=== PATIENT | male | born 1935 ===

== ENCOUNTER 2016-12-24 23:19 | Inpatient (IN) | payer MEDICARE, OTHER ==
[2016-12-25 00:38] LABS: BASO # 0.1 K/uL (0.0-0.2); BASO % 0.6 % (0.0-2.0); EOS # 0.1 K/uL (0.0-0.7); EOS % 0.5 % (0.0-4.0); HEMATOCRIT 35.9 % (35.0-51.0); LYMPH # 1.6 K/uL (1.0-4.3); LYMPH % 11.3 % (20.0-40.0); MEAN CELL VOLUME 90.2 fl (80.0-94.0); MEAN CORPUSCULAR HGB CONC 33.3 g/dL (33.0-37.0); MEAN PLATELET VOLUME 10.3 fl (7.2-11.7); MONO # 1.5 K/uL (0.0-0.8); MONO % 10.3 % (0.0-10.0); NEUT % 77.3 % (50.0-75.0); RED CELL DISTRIBUTION WIDTH 13.2 % (11.5-14.5); WHITE BLOOD COUNT 14.3 K/uL (4.8-10.8)
[2016-12-25 00:41] LABS: BLOOD UREA NITROGEN 36 mg/dl (9-20); CALCIUM 8.8 mg/dL (8.4-10.2); CARBON DIOXIDE 28 mmol/L (22-30); CHLORIDE 94 mmol/L (98-107); GFR AFRICAN-AMERICAN > 60; POTASSIUM 4.4 MMOL/L (3.6-5.0); SODIUM 131 mmol/l (132-148)
[2016-12-25 00:43] LABS: GLUCOSE,RANDOM 38 mg/dL (75-110)
[2016-12-25] MEDS ORDERED: Piperacillin/Tazobact 3.375 GM in Sodium Chloride 0.9% 100 ML IVPB STA (00:48)
--- NOTE | 2016-12-25 00:50 | CP.PCM.CON ---
History of Present Illness - History of Present Illness History of Present Illness: 81 year old male with PMHx including HTN, DM presents to ED with complaint of right leg redness. Patient states that earlier today he saw in primary doctor who sent him to the ED. He said that he has this redness to his right leg for 1 week and it has been getting worse. He admits to some pain to the right leg. He denies taking any antibiotics currently. He states that he is a patient of Dr. Brito and saw him two weeks ago. He states that he takes his blood sugar twice a day and it is usually in the 140-200 range. He admits to diarrhea and headache but denies n/v/f/c/sob/cp. Past Patient History - Past Medical History & Family History Past Medical History?: Yes - Past Social History Smoking Status: Unknown If Ever Smoked - CARDIAC Hx Hypertension: Yes - PULMONARY Hx Respiratory Disorders: No - NEUROLOGICAL Hx Neurological Disorder: No - HEENT Hx HEENT Problems: No - RENAL Hx Chronic Kidney Disease: No - ENDOCRINE/METABOLIC Hx Diabetes Mellitus Type 2: Yes - HEMATOLOGICAL/ONCOLOGICAL Hx Blood Disorders: No - INTEGUMENTARY Hx Dermatological Problems: Yes Hx Cellulitis: Yes - MUSCULOSKELETAL/RHEUMATOLOGICAL Hx Musculoskeletal Disorders: Yes Hx Falls: Yes - GASTROINTESTINAL Hx Gastrointestinal Disorders: No - GENITOURINARY/GYNECOLOGICAL Hx Genitourinary Disorders: No - PSYCHIATRIC Hx Psychophysiologic Disorder: No Hx Substance Use: No - SURGICAL HISTORY Hx Surgeries: Yes Hx Coronary Artery Bypass Graft: Yes Other/Comment: Left BTK ampuation in 2001. Popliteal bypass graft - ANESTHESIA Hx Anesthesia: Yes Hx Anesthesia Reactions: No Meds Allergies/Adverse Reactions: Allergies Allergy/AdvReac Type Severity Reaction Status Date / Time shrimp Allergy RASH Verified 06/20/16 19:29 Seafood Allergy SWELLING Uncoded 01/12/16 13:24 - Medications Medications: Current Medications Vancomycin HCl 1 gm/ Sodium (Chloride) 250 mls @ 166.667 mls/hr IVPB Q12 HILDA Piperacillin Sod/Tazobactam (Sod 3.375 gm/ Sodium Chloride) 100 mls @ 100 mls/ hr IVPB STAT STA Stop: 12/25/16 01:47 Physical Exam - Constitutional Appears: Well, Non-toxic, No Acute Distress - Extremities Exam Additional comments: Lower extremity focused exam: Left:BKA Right: Vasc: DP and PT pulses palpable 1/4. CFT < 4 seconds for digits 1-4, CFT delayed to 5th digit. Skin temperature increased from proximal to distal. +1 pitting edema noted to the foot and leg. Neuro: Gross sensation diminished Derm:Superficial ulceration noted to the medial aspect of the hallux, base is granular, periwound is hyperkeratotic. No malodor, no drainage, no probe to bone noted. Ulceration noted to the lateral aspect of the 5th digit with hyperkeratotic periwound, measuring approximately 0.6 cm by 0.6 cm x 0.2 cm, sanginous drainage noted, no malodor, no purulence, no fluctuance, no probe to bone noted. 5th digit is blanched and dusky. Erythema and calor noted on the dorsum of the lateral aspect of the right leg as well as on the anterior love. Ortho: No pain on palpation to right 5th digit or hallux. Amputation noted to the distal aspect of the 3rd digit - Neurological Exam Neurological exam: Alert, Oriented x3 - Psychiatric Exam Psychiatric exam: Normal Affect, Normal Mood Results - Vital Signs Recent Vital Signs: Last Vital Signs Temp 99.5 F 12/24/16 23:22 Pulse 88 12/24/16 23:22 Resp 18 12/24/16 23:22 BP 112/63 12/24/16 23:22 Pulse Ox 97 12/24/16 23:22 - Labs Result Diagrams: 12/25/16 00:28 12/25/16 00:28 Labs: Laboratory Results - last 24 hr 12/25/16 12/25/16 00:28 00:28 WBC 14.3 H D RBC 3.98 L Hgb 11.9 L D Hct 35.9 MCV 90.2 MCH 30.0 MCHC 33.3 RDW 13.2 Plt Count 188 MPV 10.3 Neut % (Auto) 77.3 H Lymph % (Auto) 11.3 L Coal % (Auto) 10.3 H Eos % (Auto) 0.5 Baso % (Auto) 0.6 Neut # 11.0 H Lymph # 1.6 Coal # 1.5 H Eos # 0.1 Baso # 0.1 Sodium 131 L Potassium 4.4 Chloride 94 L Carbon Dioxide 28 Anion Gap 13 BUN 36 H Creatinine 1.3 Est GFR ( Amer) > 60 Est GFR (Non-Af Amer) 53 Random Glucose 38 L* D Calcium 8.8 Assessment & Plan - Assessment and Plan (Free Text) Assessment: 81 year old male with right leg cellulitis and right hallux and fifth digit ulcerations secondary to DM Plan: Patient examined and evaluated discussed with attending Dr. Brito Chart, vitals, labs reviewed;WBC 14.3 Wound culture obtained from right 5th digit Radiographs reviewed- no signs of acute fracture, no signs of soft tissue emphysema noted Hyperkeratotic tissue was sharply debrided with #15 blade down to fresh tissue Right foot wounds dressed with bacitrain, sterile gauze, DSD Abx per ED attending Podiatry will continue to follow patient while in house
[2016-12-25] MEDS ORDERED: Dextrose 50% SYRINGE Inj (50 ml) IVP ONE (00:51)
[2016-12-25] MEDS ORDERED: Vancomycin 1 g Inj ONE (00:56)
[2016-12-25] MEDS ORDERED: Piperacillin/Tazobact 3.375 gm Inj IVPB ONE (00:56)
--- NOTE | 2016-12-25 01:45 | ED PDOC ---
Lower Extremity Pain/Injury Time Seen by Provider: 12/24/16 23:38 Chief Complaint (Nursing): Lower Extremity Problem/Injury Chief Complaint (Provider): Redness of Right Leg History Per: Patient History/Exam Limitations: no limitations Onset/Duration Of Symptoms: Days (x4) Current Symptoms Are (Timing): Still Present Additional Complaint(s): 22:38 Ayaz Johnston is an 81 year old male with a history of diabetes that presents to the ED with a chief complaint of right leg redness and pain, in addition to redness and wounds on the right foot that he has been experiencing for the past four days. Patient states that he went to see his PMD Dr. Jennings about the redness on his right leg, who then referred him to the ED for further evaluation. He states that he has a mild headache, but denies any fever. PMD: Laureano Jennings Past Medical History Reviewed: Historical Data, Nursing Documentation, Vital Signs Vital Signs: Last Vital Signs Temp 99.5 F 12/24/16 23:22 Pulse 88 12/24/16 23:22 Resp 18 12/24/16 23:22 BP 112/63 12/24/16 23:22 Pulse Ox 97 12/24/16 23:22 - Medical History PMH: Atrial Fibrillation, CAD, Diabetes, HTN, Hypercholesterolemia Denies: HIV, Chronic Kidney Disease - Surgical History Surgical History: CABG, Pacemaker - Family History Family History: States: Unknown Family Hx - Home Medications Home Medications: Ambulatory Orders Medication Instructions Recorded Warfarin [Coumadin] 2 mg PO DAILY 11/21/15 Pravastatin Sodium [Pravachol] 20 mg PO DAILY #0 tab 11/30/15 Sitagliptin Phosphate [Januvia] 100 mg PO DAILY #0 tablet 11/30/15 amLODIPine [Norvasc] 10 mg PO DAILY #0 tab 11/30/15 Clopidogrel [Plavix] 75 mg PO DAILY 01/12/16 Insulin Lispro [Humalog] 6 unit SC ACBD 01/12/16 Valsartan/Hydrochlorothiazide 1 tab PO DAILY 01/12/16 [Diovan Hct 320-25 mg Tablet] metFORMIN [glucOPHAGE] 500 mg PO BID 01/12/16 Insulin Glargine,Hum.rec.anlog 16 unit SC DAILY #0 ml 01/13/16 [Lantus] Clopidogrel [Plavix] 75 mg PO DAILY 05/13/16 Ergocalciferol (Vitamin D2) 1 cap PO QWK 05/13/16 [Vitamin D2] Pravastatin Sodium [Pravachol] 20 mg PO HS 05/13/16 SITagliptin [Januvia] 100 mg PO DAILY 05/13/16 Valsartan/Hydrochlorothiazide 1 tab PO DAILY 05/13/16 [Valsartan-Hctz 320-25 mg Tab] amLODIPine [Norvasc] 10 mg PO DAILY 05/13/16 metFORMIN [glucOPHAGE] 500 mg PO BID 05/13/16 predniSONE [predniSONE Tab] 20 mg PO DAILY #12 tab 06/20/16 - Allergies Allergies/Adverse Reactions: Allergies Allergy/AdvReac Type Severity Reaction Status Date / Time shrimp Allergy RASH Verified 06/20/16 19:29 Seafood Allergy SWELLING Uncoded 01/12/16 13:24 Review of Systems Constitutional: Negative for: Fever Musculoskeletal: Positive for: Leg Pain (right leg redness and pain), Foot Pain (right foot redness and wounds) Neurological: Positive for: Headache (mild) Physical Exam - Reviewed Nursing Documentation Reviewed: Yes Vital Signs Reviewed: Yes - Physical Exam Appears: Positive for: Non-toxic, No Acute Distress Head Exam: Positive for: ATRAUMATIC, NORMOCEPHALIC Skin: Positive for: Warm, Dry Cardiovascular/Chest: Positive for: Regular Rate, Rhythm. Negative for: Murmur Respiratory: Positive for: Normal Breath Sounds. 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 Right leg has redness on the anterior aspect, as well as rednesson the dorsum of the right foot. There are also two diabetic ulcer wounds on the right foot: one on the right great toe and the other o the right little toe. These wounds appear open. ). Negative for: Pedal Edema, Calf Tenderness Neurologic/Psych: Positive for: Alert, Oriented - Laboratory Results Result Diagrams: 12/25/16 00:28 12/25/16 00:28 - ECG O2 Sat by Pulse Oximetry: 97 (RA) Pulse Ox Interpretation: Normal Medical Decision Making Medical Decision Makin:08 Initial Impression: Cellulitis of the Right Leg/Diabetic Ulcers of Right Foot, r /o osteomyelitis Initial Plan: * CBC * ESR * Tylenol 650 mg PO * Dextrose * Vancomycin * Piperacillin/Tazobact * Blood culture * Wound culture * Podiatry consult * Reevaluation 1:24 Patient was seen by podiatry resident and discussed with Dr. Brito. Discussed with patient and Dr. Palencia, who agreed to admit the patient under his care. Scribe Attestation: Documented by Mahsa De Luna, acting as a scribe for Danita Medeiros MD. Provider Scribe Attestation: All medical record entries made by the Scribe were at my direction and personally dictated by me. I have reviewed the chart and agree that the record accurately reflects my personal performance of the history, physical exam, medical decision making, and the department course for this patient. I have also personally directed, reviewed, and agree with the discharge instructions and disposition. Disposition - Clinical Impression Clinical Impression: Cellulitis, Diabetic ulcer of right foot - Patient ED Disposition Is Patient to be Admitted: Yes Discussed With Dr.: Jos Palencia Doctor Will See Patient In The: Hospital Counseled Patient/Family Regarding: Studies Performed, Diagnosis - Disposition Disposition Time: 01:24 Condition: FAIR - POA Present On Arrival: Poor Glycemic Control, Pressure Ulcer
[2016-12-25] MEDS: Insulin Lispro (humaLOG) 100 Units/ml Inj SC SCH ×4 (07:06→22:00)
[2016-12-25] MEDS ORDERED: INSULIN GLARGINE HUM REC ANLOG 18 UNIT SC SCH (09:00)
[2016-12-25] MEDS ORDERED: Enoxaparin 30 mg Syringe SC SCH (09:00)
[2016-12-25] MEDS ORDERED: Patient's Own Med (Valsartan/Hydrochlorothiazide [Valsartan-Hctz 320-25 Mg Tab] 1 TAB) PO SCH (09:00)
[2016-12-25] MEDS ORDERED: Silver Sulfadiazine 1% Cream (20 gm) TOP SCH (09:00)
[2016-12-25] MEDS: Insulin Detemir 100 Units/ml Inj SC SCH (09:22)
[2016-12-25] MEDS: Enoxaparin 40 mg Syringe SC SCH (09:24)
[2016-12-25] MEDS: Piperacillin/Tazobact 3.375 GM in Sodium Chloride 0.9% 100 ML IVPB SCH ×2 (09:30→17:14)
[2016-12-25 10:25] LABS: HEMATOCRIT 36.5 % (35.0-51.0); MEAN CELL VOLUME 90.8 fl (80.0-94.0); MEAN CORPUSCULAR HEMOGLOBIN 30.5 pg (27.0-31.0); MEAN CORPUSCULAR HGB CONC 33.6 g/dL (33.0-37.0); RED CELL DISTRIBUTION WIDTH 13.2 % (11.5-14.5); WHITE BLOOD COUNT 11.1 K/uL (4.8-10.8)
[2016-12-25 10:35] LABS: ALKALINE PHOSPHATASE 110 U/L (38-126); ALT/SGPT 34 U/L (21-72); AST/SGOT 32 U/L (17-59); BILIRUBIN,TOTAL 1.9 mg/dl (0.2-1.3); BLOOD UREA NITROGEN 31 mg/dl (9-20); CALCIUM 8.8 mg/dL (8.4-10.2); CARBON DIOXIDE 29 mmol/L (22-30); CHLORIDE 95 mmol/L (98-107); GFR AFRICAN-AMERICAN > 60; GLUCOSE,RANDOM 170 mg/dL (75-110); POTASSIUM 4.5 MMOL/L (3.6-5.0); SODIUM 134 mmol/l (132-148); TOTAL PROTEIN 6.9 G/DL (6.3-8.2)
--- NOTE | 2016-12-25 12:34 | CP.PCM.HP ---
History of Present Illness - History of Present Illness History of Present Illness: This is an 81 y/o male with PVD, left BKA and right lower leg stent , DM 2 admitted last night for cellulitis of the left leg and necrosis and possible osteomyelitis of the left 5th digit. WBC was 14.3 Patient claims that sx of redness and tenderness of the right leg started 5 days ago. He eventually saw his PMD Dr Dioni Jennings and advised IV antibiotics. Present on Admission - Present on Admission Any Indicators Present on Admission: No History of DVT/PE: No History of Uncontrolled Diabetes: Yes Urinary Catheter: No Decubitus Ulcer Present: No Past Patient History - Past Medical History & Family History Past Medical History?: Yes - Past Social History Smoking Status: Former Smoker - CARDIAC Hx Hypertension: Yes - PULMONARY Hx Respiratory Disorders: No - NEUROLOGICAL Hx Neurological Disorder: No - HEENT Hx HEENT Problems: No - RENAL Hx Chronic Kidney Disease: No - ENDOCRINE/METABOLIC Hx Diabetes Mellitus Type 2: Yes - HEMATOLOGICAL/ONCOLOGICAL Hx Blood Disorders: No - INTEGUMENTARY Hx Dermatological Problems: Yes Hx Cellulitis: Yes - MUSCULOSKELETAL/RHEUMATOLOGICAL Hx Musculoskeletal Disorders: Yes Hx Falls: Yes - GASTROINTESTINAL Hx Gastrointestinal Disorders: No - GENITOURINARY/GYNECOLOGICAL Hx Genitourinary Disorders: No - PSYCHIATRIC Hx Psychophysiologic Disorder: No Hx Substance Use: No - SURGICAL HISTORY Hx Surgeries: Yes Hx Coronary Artery Bypass Graft: Yes Other/Comment: Left BKA in 2001. Popliteal bypass graft - ANESTHESIA Hx Anesthesia: Yes Hx Anesthesia Reactions: No Hx Malignant Hyperthermia: No Has any member of the family had a problem w/ anesthesia?: No Meds Allergies/Adverse Reactions: Allergies Allergy/AdvReac Type Severity Reaction Status Date / Time shrimp Allergy RASH Verified 06/20/16 19:29 Seafood Allergy SWELLING Uncoded 01/12/16 13:24 Physical Exam - Head Exam Head Exam: NORMAL INSPECTION - Eye Exam Eye Exam: Normal appearance - Respiratory Exam Respiratory Exam: Clear to Auscultation Bilateral - Cardiovascular Exam Cardiovascular Exam: REGULAR RHYTHM - GI/Abdominal Exam GI & Abdominal Exam: Normal Bowel Sounds - Extremities Exam Extremities exam: Positive for: tenderness Additional comments: redness on the right leg up to mid leg tender on palpation - Neurological Exam Neurological exam: Oriented x3 - Psychiatric Exam Psychiatric exam: Normal Mood Results - Vital Signs Recent Vital Signs: Last Vital Signs Temp 98.6 F 12/25/16 07:56 Pulse 77 12/25/16 09:24 Resp 20 12/25/16 07:56 BP 124/66 12/25/16 09:24 Pulse Ox 95 12/25/16 07:56 - Labs Result Diagrams: 12/25/16 10:00 12/25/16 10:00 Labs: Laboratory Results - last 24 hr 12/25/16 12/25/16 12/25/16 05:49 10:00 10:00 WBC 11.1 H RBC 4.02 L Hgb 12.3 Hct 36.5 MCV 90.8 MCH 30.5 MCHC 33.6 RDW 13.2 Plt Count 163 ESR 58 H Sodium 134 Potassium 4.5 Chloride 95 L Carbon Dioxide 29 Anion Gap 15 BUN 31 H Creatinine 1.1 Est GFR ( Amer) > 60 Est GFR (Non-Af Amer) > 60 POC Glucose (mg/dL) 89 Random Glucose 170 H Calcium 8.8 Total Bilirubin 1.9 H AST 32 ALT 34 Alkaline Phosphatase 110 Total Protein 6.9 Albumin 3.5 Globulin 3.4 Albumin/Globulin Ratio 1.0 Assessment & Plan (1) Diabetic ulcer of right foot Status: Acute (2) Atrial fibrillation Status: Acute (3) Cellulitis of right leg Status: Acute (4) Diabetes mellitus type 2, uncontrolled Status: Acute (5) HTN (hypertension) Status: Acute (6) PAD (peripheral artery disease) Status: Acute - Assessment and Plan (Free Text) Plan: Cont meds Cont tx IV antibiotics Podiatyr eval cardiology Infectious disease follow up MRI
--- NOTE | 2016-12-25 14:22 | US ---
PROCEDURE: Duplex ultrasound of the left lower extremity arteries. HISTORY: right 5th digit ulcer COMPARISON: None available. TECHNIQUE: Grayscale and duplex Doppler evaluation of the right common femoral, superficial femoral, popliteal, posterior tibial and dorsalis pedis arteries was performed.. FINDINGS: COMMON FEMORAL ARTERY: Patent. Maximal flow velocity of 132 cm/s. SUPERFICIAL FEMORAL ARTERY:Proximal has normal flow with minor plaque Maximal flow velocity of 132 cm/s. Distal left SFA has biphasic flow with increased velocity of 162 centimeters/second and waveform is biphasic suggesting atherosclerotic stenosis. POPLITEAL ARTERY:Moderate atherosclerotic plaque. Maximal flow velocity of 103 cm/s. Waveform is biphasic. POSTERIOR TIBIAL ARTERY: Atherosclerotic plaque, patent Maximal flow velocity of 62 cm/s. Biphasic flow. DORSALIS PEDIS ARTERY: Monophasic flow. Atherosclerotic calcification. Maximal flow velocity of 35 cm/s. This suggest moderate distal disease. OTHER FINDINGS: None. IMPRESSION: Atherosclerotic changes with distal monophasic flow in the dorsalis pedis artery. Elevated velocity in the distal right SFA suggesting additional atherosclerotic narrowing. Moderate plaque in the right popliteal artery.
[2016-12-25] MEDS: Silver Sulfadiazine 1% Cream (20 gm) TOP SCH (17:00)
--- NOTE | 2016-12-25 17:01 | CP.PCM.CON ---
History of Present Illness - History of Present Illness History of Present Illness: I was asked to see patient by Dr. Manjarrez and Dr. Palencia. Patient is a 81 year old male with history of DM, HTN, PAD s/p amputation of the LLE who presents with cellulitis of the right leg. The patient reports a similar episode about one year ago, and the patient complains of progression of cellulitis. He denies pain. There is necrosis of the 5th toe of the right foot. Review of Systems - Constitutional Constitutional: absent: As Per HPI, Anorexia, Chills, Daytime Sleepiness, Excessive Sweating, Fatigue, Fever, Frequent Falls, Headache, Increased Appetite , Lethargy, Malaise, Night Sweats, Snoring, Sleep Apnea, Weight Gain, Weight Loss, Weakness, Other - EENT Eyes: absent: As Per HPI, Blind Spots, Blurred Vision, Change in Vision, Decreased Night Vision, Diplopia, Discharge, Dry Eye, Exophthalmos, Floaters, Irritation, Itchy Eyes, Loss of Peripheral Vision, Pain, Photophobia, Requires Corrective Lenses, Sees Flashes, Spots in Vision, Tunnel Vision, Other Visual Disturbances, Loss of Vision, Other Ears: absent: As Per HPI, Decreased Hearing, Ear Discharge, Ear Pain, Tinnitus, Abnormal Hearing, Disequilibrium, Dizziness, Other Nose/Mouth/Throat: absent: As Per HPI, Epistaxis, Nasal Congestion, Nasal Discharge, Nasal Obstruction, Nasal Trauma, Nose Pain, Post Nasal Drip, Sinus Pain, Sinus Pressure, Bleeding Gums, Change in Voice, Dental Pain, Dry Mouth, Dysphagia, Halitosis, Hoarsness, Lip Swelling, Mouth Lesions, Mouth Pain, Odynophagia, Sore Throat, Throat Swelling, Tongue Swelling, Facial Pain, Neck Pain, Neck Mass, Other - Cardiovascular Cardiovascular: Leg Edema - Respiratory Respiratory: absent: As Per HPI, Cough, Dyspnea, Hemoptysis, Dyspnea on Exertion , Wheezing, Snoring, Stridor, Pain on Inspiration, Chest Congestion, Excessive Mucous Production, Change in Mucous Color, Pain with Coughing, Other - Gastrointestinal Gastrointestinal: absent: As Per HPI, Abdominal Pain, Belching, Bloating, Change in Bowel Habits, Change in Stool Character, Coffee Ground Emesis, Constipation, Cramping, Diarrhea, Dyspepsia, Dysphagia, Early Satiety, Excessive Flatus, Fecal Incontinence, Heartburn, Hematemesis, Hematochezia, Loose Stools, Melena, Nausea, Odynophagia, Temesmus, Vomiting, Other - Genitourinary Genitourinary: absent: As Per HPI, Change in Urinary Stream, Difficulty Urinating, Dysuria, Flank Pain, Hematuria, Pyuria, Nocturia, Urinary Incontinence, Urinary Frequency, Urinary Hesitance, Urinary Urgency, Voiding Freq/Small Amts, Freq UTI, Hx Renal/Bladder Calculi, Hx /Renal Surgery, Bladder Distension, Other - Musculoskeletal Musculoskeletal: absent: As Per HPI, Abnormal Gait, Arthralgias, Atrophy, Back Pain, Deformity, Joint Swelling, Limited Range of Motion, Loss of Height, Muscle Cramps, Muscle Weakness, Myalgias, Neck Pain, Numbness, Radiating Pain into Limb, Stiffness, Tingling, Other - Integumentary Integumentary: Skin Ulcer - Neurological Neurological: absent: As Per HPI, Abnormal Gait, Abnormal Hearing, Abnormal Movements, Abnormal Speech, Behavioral Changes, Burning Sensations, Confusion, Convulsions, Disequilibrium, Dizziness, Numbness, Focal Weakness, Frequent Falls , Headaches, Lack of Coordination, Loss of Vision, Memory Loss, Paresthesias, Radicular Pain, Restless Legs, Sensory Deficit, Syncope, Tingling, Tremor, Vertigo, Weakness, Other Visual Disturbances, Other - Psychiatric Psychiatric: absent: As Per HPI, Abnormal Sleep Pattern, Anhedonia, Anxiety, Auditory Hallucinations, Behavioral Changes, Change in Appetite, Change in Libido, Confusion, Depression, Difficulty Concentrating, Hallucinations, Homicidal Ideation, Hopelessness, Irritability, Memory Loss, Mood Swings, Panic Attacks, Paranoia, Suicidal Ideation, Visual Hallucinations, Tactile Hallucinations, Other - Endocrine Endocrine: absent: As Per HPI, Change in Body Appearance, Change in Libido, Cold Intolorance, Deepening of Voice, Excessive Sweating, Fatigue, Flushing, Heat Intolorance, Increase in Ring/Shoe/Hat Size, Palpitations, Polydipsia, Polyphagia, Polyuria, Other - Hematologic/Lymphatic Hematologic: absent: As Per HPI, Easy Bleeding, Easy Bruising, Lymphadenopathy, Other Past Patient History - Past Medical History & Family History Past Medical History?: Yes - Past Social History Smoking Status: Former Smoker - CARDIAC Hx Hypertension: Yes - PULMONARY Hx Respiratory Disorders: No - NEUROLOGICAL Hx Neurological Disorder: No - HEENT Hx HEENT Problems: No - RENAL Hx Chronic Kidney Disease: No - ENDOCRINE/METABOLIC Hx Diabetes Mellitus Type 2: Yes - HEMATOLOGICAL/ONCOLOGICAL Hx Blood Disorders: No - INTEGUMENTARY Hx Dermatological Problems: Yes Hx Cellulitis: Yes - MUSCULOSKELETAL/RHEUMATOLOGICAL Hx Musculoskeletal Disorders: Yes Hx Falls: Yes - GASTROINTESTINAL Hx Gastrointestinal Disorders: No - GENITOURINARY/GYNECOLOGICAL Hx Genitourinary Disorders: No - PSYCHIATRIC Hx Psychophysiologic Disorder: No Hx Substance Use: No - SURGICAL HISTORY Hx Surgeries: Yes Hx Coronary Artery Bypass Graft: Yes Other/Comment: Left BKA in 2001. Popliteal bypass graft - ANESTHESIA Hx Anesthesia: Yes Hx Anesthesia Reactions: No Hx Malignant Hyperthermia: No Has any member of the family had a problem w/ anesthesia?: No Meds Allergies/Adverse Reactions: Allergies Allergy/AdvReac Type Severity Reaction Status Date / Time shrimp Allergy RASH Verified 06/20/16 19:29 Seafood Allergy SWELLING Uncoded 01/12/16 13:24 - Medications Medications: Current Medications Acetaminophen (Tylenol 325mg Tab) 650 mg PO Q4 PRN PRN Reason: Fever >100.4 F Amlodipine Besylate (Norvasc) 10 mg PO DAILY [facility] Last Admin: 12/25/16 09:24 Dose: 10 mg Clopidogrel Bisulfate (Plavix) 75 mg PO DAILY [facility] Last Admin: 12/25/16 09:24 Dose: 75 mg Enoxaparin Sodium (Lovenox) 40 mg SC DAILY [facility] PRN Reason: Protocol Last Admin: 12/25/16 09:24 Dose: 40 mg Hydrochlorothiazide (Hydrodiuril) 25 mg PO DAILY [facility] Last Admin: 12/25/16 09:22 Dose: 25 mg Vancomycin HCl 1 gm/ Sodium (Chloride) 250 mls @ 166.667 mls/hr IVPB ONCE ONE Stop: 12/26/16 02:29 Piperacillin Sod/Tazobactam (Sod 3.375 gm/ Sodium Chloride) 100 mls @ 100 mls/ hr IVPB Q8 [facility] Last Admin: 12/25/16 09:30 Dose: 100 mls/hr Vancomycin HCl 500 mg/ Sodium (Chloride) 100 mls @ 100 mls/hr IVPB DAILY@0100 [facility] Insulin Detemir (Levemir) 18 units SC DAILY [facility] Last Admin: 12/25/16 09:22 Dose: 18 unit Insulin Human Lispro (Humalog) 0 units SC ACHS [facility] PRN Reason: Protocol Last Admin: 12/25/16 12:49 Dose: Not Given Metformin HCl (Glucophage) 500 mg PO BID [facility] Last Admin: 12/25/16 09:22 Dose: 500 mg Pravastatin Sodium (Pravachol) 20 mg PO [facility] Silver Sulfadiazine (Silvadene 1% 20 Gm) 20 ea TOP DAILY@1700 [facility] Sitagliptin Phosphate (Januvia) 100 mg PO DAILY [facility] Last Admin: 12/25/16 09:22 Dose: 100 mg Valsartan (Diovan) 320 mg PO DAILY [facility] Last Admin: 12/25/16 09:21 Dose: 320 mg Physical Exam - Constitutional Appears: Non-toxic - Head Exam Head Exam: NORMAL INSPECTION - Eye Exam Eye Exam: Normal appearance - ENT Exam ENT Exam: Mucous Membranes Moist - Neck Exam Neck exam: Positive for: Full Rom - Respiratory Exam Respiratory Exam: Decreased Breath Sounds - Cardiovascular Exam Cardiovascular Exam: REGULAR RHYTHM - GI/Abdominal Exam GI & Abdominal Exam: Normal Bowel Sounds - Rectal Exam Rectal Exam: Deferred - Extremities Exam Extremities exam: Positive for: pedal edema Additional comments: cellulitis noted of the skin of the right lower extremity. necrotic 5th toe of the right foot. - Back Exam Back exam: NORMAL INSPECTION - Neurological Exam Neurological exam: Oriented x3 - Psychiatric Exam Psychiatric exam: Normal Affect - Skin Skin Exam: Normal Color Results - Vital Signs Recent Vital Signs: Last Vital Signs Temp 98.6 F 12/25/16 07:56 Pulse 77 12/25/16 09:24 Resp 20 12/25/16 07:56 BP 124/66 12/25/16 09:24 Pulse Ox 95 12/25/16 07:56 - Labs Result Diagrams: 12/25/16 10:00 12/25/16 10:00 Labs: Laboratory Results - last 24 hr 12/25/16 12/25/16 12/25/16 05:49 10:00 10:00 WBC 11.1 H RBC 4.02 L Hgb 12.3 Hct 36.5 MCV 90.8 MCH 30.5 MCHC 33.6 RDW 13.2 Plt Count 163 ESR 58 H Sodium 134 Potassium 4.5 Chloride 95 L Carbon Dioxide 29 Anion Gap 15 BUN 31 H Creatinine 1.1 Est GFR ( Amer) > 60 Est GFR (Non-Af Amer) > 60 POC Glucose (mg/dL) 89 Random Glucose 170 H Calcium 8.8 Total Bilirubin 1.9 H AST 32 ALT 34 Alkaline Phosphatase 110 Total Protein 6.9 Albumin 3.5 Globulin 3.4 Albumin/Globulin Ratio 1.0 12/25/16 12:34 WBC RBC Hgb Hct MCV MCH MCHC RDW Plt Count ESR Sodium Potassium Chloride Carbon Dioxide Anion Gap BUN Creatinine Est GFR ( Amer) Est GFR (Non-Af Amer) POC Glucose (mg/dL) 148 H Random Glucose Calcium Total Bilirubin AST ALT Alkaline Phosphatase Total Protein Albumin Globulin Albumin/Globulin Ratio - EKG Data EKG Interpreted by: Myself EKG shows normal: Sinus rhythm Assessment & Plan (1) Diabetic ulcer of right foot Assessment and Plan: will need antibiotic therapy Status: Acute (2) Cellulitis Assessment and Plan: cotinue antibiotics as per ID Status: Acute (3) HTN (hypertension) Assessment and Plan: blood pressure control Status: Acute (4) PAD (peripheral artery disease) Assessment and Plan: bipahsic flow suggestrive of moderate disase. recommend CT angiogram. Status: Acute
[2016-12-25] MEDS ORDERED: Dextrose 50% SYRINGE Inj (50 ml) IV PRN (21:15)
[2016-12-25] MEDS: Pravastatin Sodium 20 MG TAB PO SCH (22:00)
[2016-12-26] MEDS: Piperacillin/Tazobact 3.375 GM in Sodium Chloride 0.9% 100 ML IVPB SCH ×3 (01:00→16:40)
[2016-12-26 04:49] LABS: PARTIAL THROMBOPLASTIN TIME 38.3 SECONDS (23.3-32.5)
[2016-12-26] MEDS: Insulin Lispro (humaLOG) 100 Units/ml Inj SC SCH ×4 (06:32→22:18)
[2016-12-26] MEDS: Enoxaparin 40 mg Syringe SC SCH (08:15)
[2016-12-26] MEDS ORDERED: Iodixanol 320 MG/ML 100 ML BOTTLE IV ONE (09:15)
[2016-12-26] MEDS ORDERED: Sodium Chloride 0.9% 50 ML IV ONE (09:16)
[2016-12-26] MEDS: Insulin Detemir 100 Units/ml Inj SC SCH (11:16)
--- NOTE | 2016-12-26 11:30 | CP.PCM.PN ---
Subjective - Date & Time of Evaluation Date of Evaluation: 12/26/16 Time of Evaluation: 10:30 - Subjective Subjective: 81 year old male was seen resting at bedside regarding right lower extremity cellulitis and right 5th and hallux ulcerations. Denies any acute events overnight. Denies any pain to his right lower extremity. Patient states that he already went for his angio this morning. He denies n/v/f/c/sob/cp. Objective - Vital Signs/Intake and Output Vital Signs (last 24 hours): Temp Pulse Resp BP Pulse Ox 99.2 F 97 H 20 138/88 99 12/26/16 00:14 12/26/16 00:14 12/26/16 00:14 12/26/16 00:14 12/26/16 00:14 - Medications Medications: Current Medications Acetaminophen (Tylenol 325mg Tab) 650 mg PO Q4 PRN PRN Reason: Fever >100.4 F Last Admin: 12/25/16 17:14 Dose: 650 mg Amlodipine Besylate (Norvasc) 10 mg PO DAILY [facility] Last Admin: 12/26/16 11:15 Dose: 10 mg Clopidogrel Bisulfate (Plavix) 75 mg PO DAILY [facility] Last Admin: 12/26/16 11:16 Dose: 75 mg Dextrose (Dextrose 50% Inj) 0 ml IV STAT PRN; Protocol PRN Reason: Hyglycemia Protocol Dextrose (Glutose 15) 0 gm PO ONCE PRN; Protocol PRN Reason: Hypoglycemia Protocol Enoxaparin Sodium (Lovenox) 40 mg SC DAILY [facility] PRN Reason: Protocol Last Admin: 12/26/16 08:15 Dose: Not Given Hydrochlorothiazide (Hydrodiuril) 25 mg PO DAILY [facility] Last Admin: 12/26/16 11:15 Dose: 25 mg Piperacillin Sod/Tazobactam (Sod 3.375 gm/ Sodium Chloride) 100 mls @ 100 mls/ hr IVPB Q8 [facility] Last Admin: 12/26/16 08:14 Dose: 100 mls/hr Vancomycin HCl 500 mg/ Sodium (Chloride) 100 mls @ 100 mls/hr IVPB DAILY@0100 [facility] Insulin Detemir (Levemir) 18 units SC DAILY [facility] Last Admin: 12/26/16 11:16 Dose: 18 unit Insulin Human Lispro (Humalog) 0 units SC ACHS [facility] PRN Reason: Protocol Last Admin: 12/26/16 11:20 Dose: Not Given Metformin HCl (Glucophage) 500 mg PO BID [facility] Last Admin: 12/26/16 08:15 Dose: Not Given Pravastatin Sodium (Pravachol) 20 mg PO HS [facility] Last Admin: 12/25/16 22:00 Dose: 20 mg Silver Sulfadiazine (Silvadene 1% 20 Gm) 20 ea TOP DAILY@1700 [facility] Last Admin: 12/25/16 17:00 Dose: 1 u Sitagliptin Phosphate (Januvia) 100 mg PO DAILY [facility] Last Admin: 12/26/16 11:15 Dose: 100 mg Valsartan (Diovan) 320 mg PO DAILY [facility] Last Admin: 12/26/16 11:15 Dose: 320 mg - Labs Labs: 12/25/16 10:00 12/25/16 10:00 PT 11.2 SECONDS (9.6-11.2) 12/26/16 04:26 INR 1.08 (0.92-1.08) 12/26/16 04:26 APTT 38.3 SECONDS (23.3-32.5) H 12/26/16 04:26 - Constitutional Appears: Non-toxic, No Acute Distress - Extremities Exam Additional comments: Lower extremity focused exam: Left:BKA Right: Vasc: DP and PT pulses non-palpable. CFT < 4 seconds for digits 1-4, CFT delayed to 5th digit. Skin temperature increased from proximal to distal. +1 pitting edema noted to the foot and leg. Neuro: Gross sensation diminished Derm:Superficial ulceration noted to the medial aspect of the hallux measuring approximately 0.5 cm x 0.5 cm x 0.2 cm, base is granular,. No malodor, no drainage, no probe to bone noted. Ulceration noted to the lateral aspect of the 5th digit with granular base, measuring approximately 1 cm by 1 cm x 0.2 cm , sanginous drainage noted, no malodor, no purulence, no fluctuance, no probe to bone noted. 5th digit is blanched and dusky. Erythema and calor noted on the dorsum of the lateral aspect of the right leg as well as on the anterior love- slowly resolving. Ortho: No pain on palpation to right 5th digit or hallux. Amputation noted to the distal aspect of the 3rd digit - Neurological Exam Neurological Exam: Alert, Awake, Oriented x3 - Psychiatric Exam Psychiatric exam: Normal Affect, Normal Mood Assessment and Plan - Assessment and Plan (Free Text) Assessment: 81 year old male with right leg cellulitis and right hallux and fifth digit ulcerations secondary to DM Plan: Patient examined and evaluated discussed with attending Dr. Brito Chart, vitals, labs reviewed;WBC 11.1 Wound culture pending Radiograph IMPRESSION: Small area of lucency and erosive change in the distal phalanx of the right 5th toe. Possible small overlying soft tissue ulcer. Osteomyelitis in this region is not excluded. No appreciable fracture. Right foot wounds dressed with silvadene, sterile gauze, DSD-to be dressed twice daily, nursing communication written Discussed the possibility of surgical intervention ID-Dr. Kruse consulted Continue IV abx per ID Vascular-Dr. Smith consulted arterile duplex studies obtained CT angio-offical read pending Podiatry will continue to follow patient while in house
--- NOTE | 2016-12-26 13:06 | CP.PCM.PN ---
Subjective - Date & Time of Evaluation Date of Evaluation: 12/26/16 Time of Evaluation: 13:05 - Subjective Subjective: patient has no current chest pain. less foot pain. Objective - Vital Signs/Intake and Output Vital Signs (last 24 hours): Temp Pulse Resp BP Pulse Ox 99.2 F 97 H 20 138/88 99 12/26/16 00:14 12/26/16 00:14 12/26/16 00:14 12/26/16 00:14 12/26/16 00:14 - Medications Medications: Current Medications Acetaminophen (Tylenol 325mg Tab) 650 mg PO Q4 PRN PRN Reason: Fever >100.4 F Last Admin: 12/25/16 17:14 Dose: 650 mg Amlodipine Besylate (Norvasc) 10 mg PO DAILY [facility] Last Admin: 12/26/16 11:15 Dose: 10 mg Clopidogrel Bisulfate (Plavix) 75 mg PO DAILY [facility] Last Admin: 12/26/16 11:16 Dose: 75 mg Dextrose (Dextrose 50% Inj) 0 ml IV STAT PRN; Protocol PRN Reason: Hyglycemia Protocol Dextrose (Glutose 15) 0 gm PO ONCE PRN; Protocol PRN Reason: Hypoglycemia Protocol Enoxaparin Sodium (Lovenox) 40 mg SC DAILY [facility] PRN Reason: Protocol Last Admin: 12/26/16 08:15 Dose: Not Given Hydrochlorothiazide (Hydrodiuril) 25 mg PO DAILY [facility] Last Admin: 12/26/16 11:15 Dose: 25 mg Piperacillin Sod/Tazobactam (Sod 3.375 gm/ Sodium Chloride) 100 mls @ 100 mls/ hr IVPB Q8 [facility] Last Admin: 12/26/16 08:14 Dose: 100 mls/hr Vancomycin HCl 500 mg/ Sodium (Chloride) 100 mls @ 100 mls/hr IVPB DAILY@0100 [facility] Insulin Detemir (Levemir) 18 units SC DAILY [facility] Last Admin: 12/26/16 11:16 Dose: 18 unit Insulin Human Lispro (Humalog) 0 units SC ACHS [facility] PRN Reason: Protocol Last Admin: 12/26/16 11:20 Dose: Not Given Metformin HCl (Glucophage) 500 mg PO BID [facility] Last Admin: 12/26/16 08:15 Dose: Not Given Pravastatin Sodium (Pravachol) 20 mg PO HS [facility] Last Admin: 12/25/16 22:00 Dose: 20 mg Silver Sulfadiazine (Silvadene 1% 20 Gm) 20 ea TOP DAILY@1700 [facility] Last Admin: 12/25/16 17:00 Dose: 1 u Sitagliptin Phosphate (Januvia) 100 mg PO DAILY [facility] Last Admin: 12/26/16 11:15 Dose: 100 mg Valsartan (Diovan) 320 mg PO DAILY [facility] Last Admin: 12/26/16 11:15 Dose: 320 mg - Labs Labs: 12/25/16 10:00 12/25/16 10:00 PT 11.2 SECONDS (9.6-11.2) 12/26/16 04:26 INR 1.08 (0.92-1.08) 12/26/16 04:26 APTT 38.3 SECONDS (23.3-32.5) H 12/26/16 04:26 - Constitutional Appears: Non-toxic - Head Exam Head Exam: NORMAL INSPECTION - Eye Exam Eye Exam: Normal appearance - ENT Exam ENT Exam: Mucous Membranes Moist - Neck Exam Neck Exam: Full ROM - Respiratory Exam Respiratory Exam: NORMAL BREATHING PATTERN - Cardiovascular Exam Cardiovascular Exam: REGULAR RHYTHM - GI/Abdominal Exam GI & Abdominal Exam: Normal Bowel Sounds - Rectal Exam Rectal Exam: Deferred - Extremities Exam Additional comments: erythema of the right lower extremity - Back Exam Back Exam: NORMAL INSPECTION - Neurological Exam Neurological Exam: Alert - Psychiatric Exam Psychiatric exam: Normal Affect - Skin Skin Exam: Normal Color Assessment and Plan (1) Diabetic ulcer of right foot Assessment & Plan: await CT angiogram report Status: Acute (2) Cellulitis Assessment & Plan: continue antibiotics Status: Acute (3) HTN (hypertension) Status: Acute (4) PAD (peripheral artery disease) Assessment & Plan: await CT angiogram report Status: Acute
--- NOTE | 2016-12-26 13:47 | CT ---
EXAM: CT Angiography Abdomen and Pelvis With Runoff to the Lower Extremities With Intravenous Contrast CLINICAL HISTORY: 81 years old, male; Condition or disease; Vascular insufficiency, intestinal; Prior surgery; Surgery date: 6+ months; Additional info: Gangrene/ cellulitis right lower extremity TECHNIQUE: Axial computed tomographic angiography images of the abdomen, pelvis and lower extremities with intravenous contrast using CT angiography protocol. This CT exam was performed using one or more of the following dose reduction techniques: automated exposure control, adjustment of the mA and/or kV according to patient size, and/or use of iterative reconstruction technique. MIP reconstructed images were created and reviewed. Coronal and sagittal reformatted images were created and reviewed. CONTRAST: 140 mL of VISIPAQUE 320 140ML administered intravenously. EXAM DATE/TIME: 12/26/2016 5:07 PM COMPARISON: No relevant prior studies available. FINDINGS: Lower thorax: Small hiatal hernia. VASCULATURE: Aorta: Moderate to marked atherosclerotic calcifications are aorta and branch vessels. No abdominal aortic aneurysm. No dissection. Celiac trunk and mesenteric arteries: Calcifications at origin of celiac artery, estimated 50% stenosis. Renal arteries: Beaded appearance of left renal artery, question fibromuscular dysplasia. No significant stenosis. Right iliac arteries: No acute findings. No occlusion or significant stenosis. Right femoral/popliteal arteries: Short segment of distal superficial femoral artery estimated less than 50% stenosis. Occluded femoral-popliteal bypass graft. Right calf/foot arteries: Extensive vascular calcifications tibial arteries limiting assessment. Segment of about 2 cm of proximal anterior and posterior tibial arteries with no demonstrable flow. Extensive superficial collaterals throughout the lower leg to foot. Small peroneal artery. Left iliac arteries: No acute findings. No occlusion or significant stenosis. Left femoral/popliteal arteries: Mural plaques distal half superficial femoral artery. Segmental stenosis in distal third, 1-2 cm segment estimated to be at least 50% stenosis. Thready popliteal artery, estimated 75% stenosis. Left calf/foot arteries: Below the knee amputation. Other arteries: Calcifications at the origin of superior mesenteric artery, estimated 50% stenosis. ABDOMEN: Liver: Unremarkable. No mass. Gallbladder and bile ducts: Unremarkable. No calcified stones. No ductal dilation. Pancreas: Unremarkable. No ductal dilation. No mass. Spleen: Unremarkable. No splenomegaly. Adrenals: Unremarkable. No mass. Kidneys and ureters: No hydronephrosis. No solid lesion. Stomach and bowel: Unremarkable. No obstruction. No mucosal thickening. Appendix: Normal. PELVIS: Bladder: Unremarkable. No mass. Reproductive: Unremarkable as visualized. ABDOMEN, PELVIS and LOWER EXTREMITIES: Intraperitoneal space: Unremarkable. No significant fluid collection. No free air. Bones/joints: No acute fracture. Soft tissues: Unremarkable. Lymph nodes: Unremarkable. No enlarged lymph nodes. IMPRESSION: 1. Occlusion of right femoral-popliteal bypass graft, no significant stenosis of superficial femoral artery. 2. Short segment of occlusion/subtotal occlusion occlusion of right proximal anterior and posterior tibial arteries. Extensive calcifications limits assessment of remaining vessels, appear threadlike. Essentially single-vessel runoff with extensive collateralization. 3. Estimated 75% stenosis left popliteal artery. Below knee amputation. 4. Remaining findings as above.
--- NOTE | 2016-12-26 14:15 | CP.PCM.CON ---
History of Present Illness - History of Present Illness History of Present Illness: 81 year old male with PMHx including HTN, DM presents to ED with complaint of right leg redness. . He said that he has this redness to his right leg for 1 week and it has been getting worse. He admits to some pain to the right leg. He denies taking any antibiotics currently. He states that he is a patient of Dr. Brito and saw him two weeks ago. He states that he takes his blood sugar twice a day and it is usually in the 140-200 range. He admits to diarrhea and headache but denies n/v/f/c/sob/cp He is found to have necrosis of fifth digit right foot as well aas ascending cellulitis to righjt leg and foot Review of Systems - Constitutional Constitutional: As Per HPI, Anorexia, Chills, Fatigue, Fever, Malaise - EENT Eyes: absent: As Per HPI, Blind Spots, Blurred Vision, Change in Vision, Decreased Night Vision, Diplopia, Discharge, Dry Eye, Exophthalmos, Floaters, Irritation, Itchy Eyes, Loss of Peripheral Vision, Pain, Photophobia, Requires Corrective Lenses, Sees Flashes, Spots in Vision, Tunnel Vision, Other Visual Disturbances, Loss of Vision, Other Ears: absent: As Per HPI, Decreased Hearing, Ear Discharge, Ear Pain, Tinnitus, Abnormal Hearing, Disequilibrium, Dizziness, Other Nose/Mouth/Throat: absent: As Per HPI, Epistaxis, Nasal Congestion, Nasal Discharge, Nasal Obstruction, Nasal Trauma, Nose Pain, Post Nasal Drip, Sinus Pain, Sinus Pressure, Bleeding Gums, Change in Voice, Dental Pain, Dry Mouth, Dysphagia, Halitosis, Hoarsness, Lip Swelling, Mouth Lesions, Mouth Pain, Odynophagia, Sore Throat, Throat Swelling, Tongue Swelling, Facial Pain, Neck Pain, Neck Mass, Other - Cardiovascular Cardiovascular: As Per HPI - Respiratory Respiratory: absent: As Per HPI, Cough, Dyspnea, Hemoptysis, Dyspnea on Exertion , Wheezing, Snoring, Stridor, Pain on Inspiration, Chest Congestion, Excessive Mucous Production, Change in Mucous Color, Pain with Coughing, Other - Gastrointestinal Gastrointestinal: absent: As Per HPI, Abdominal Pain, Belching, Bloating, Change in Bowel Habits, Change in Stool Character, Coffee Ground Emesis, Constipation, Cramping, Diarrhea, Dyspepsia, Dysphagia, Early Satiety, Excessive Flatus, Fecal Incontinence, Heartburn, Hematemesis, Hematochezia, Loose Stools, Melena, Nausea, Odynophagia, Temesmus, Vomiting, Other - Genitourinary Genitourinary: absent: As Per HPI, Change in Urinary Stream, Difficulty Urinating, Dysuria, Flank Pain, Hematuria, Pyuria, Nocturia, Urinary Incontinence, Urinary Frequency, Urinary Hesitance, Urinary Urgency, Voiding Freq/Small Amts, Freq UTI, Hx Renal/Bladder Calculi, Hx /Renal Surgery, Bladder Distension, Other - Musculoskeletal Musculoskeletal: As Per HPI - Integumentary Integumentary: As Per HPI, Skin Pain, Wounds - Neurological Neurological: absent: As Per HPI, Abnormal Gait, Abnormal Hearing, Abnormal Movements, Abnormal Speech, Behavioral Changes, Burning Sensations, Confusion, Convulsions, Disequilibrium, Dizziness, Numbness, Focal Weakness, Frequent Falls , Headaches, Lack of Coordination, Loss of Vision, Memory Loss, Paresthesias, Radicular Pain, Restless Legs, Sensory Deficit, Syncope, Tingling, Tremor, Vertigo, Weakness, Other Visual Disturbances, Other - Psychiatric Psychiatric: absent: As Per HPI, Abnormal Sleep Pattern, Anhedonia, Anxiety, Auditory Hallucinations, Behavioral Changes, Change in Appetite, Change in Libido, Confusion, Depression, Difficulty Concentrating, Hallucinations, Homicidal Ideation, Hopelessness, Irritability, Memory Loss, Mood Swings, Panic Attacks, Paranoia, Suicidal Ideation, Visual Hallucinations, Tactile Hallucinations, Other - Endocrine Endocrine: absent: As Per HPI, Change in Body Appearance, Change in Libido, Cold Intolorance, Deepening of Voice, Excessive Sweating, Fatigue, Flushing, Heat Intolorance, Increase in Ring/Shoe/Hat Size, Palpitations, Polydipsia, Polyphagia, Polyuria, Other - Hematologic/Lymphatic Hematologic: absent: As Per HPI, Easy Bleeding, Easy Bruising, Lymphadenopathy, Other Past Patient History - Past Medical History & Family History Past Medical History?: Yes - Past Social History Smoking Status: Former Smoker - CARDIAC Hx Hypertension: Yes - PULMONARY Hx Respiratory Disorders: No - NEUROLOGICAL Hx Neurological Disorder: No - HEENT Hx HEENT Problems: No - RENAL Hx Chronic Kidney Disease: No - ENDOCRINE/METABOLIC Hx Diabetes Mellitus Type 2: Yes - HEMATOLOGICAL/ONCOLOGICAL Hx Blood Disorders: No - INTEGUMENTARY Hx Dermatological Problems: Yes Hx Cellulitis: Yes - MUSCULOSKELETAL/RHEUMATOLOGICAL Hx Musculoskeletal Disorders: Yes Hx Falls: Yes - GASTROINTESTINAL Hx Gastrointestinal Disorders: No - GENITOURINARY/GYNECOLOGICAL Hx Genitourinary Disorders: No - PSYCHIATRIC Hx Psychophysiologic Disorder: No Hx Substance Use: No - SURGICAL HISTORY Hx Surgeries: Yes Hx Coronary Artery Bypass Graft: Yes Other/Comment: Left BKA in 2001. Popliteal bypass graft - ANESTHESIA Hx Anesthesia: Yes Hx Anesthesia Reactions: No Hx Malignant Hyperthermia: No Has any member of the family had a problem w/ anesthesia?: No Meds Allergies/Adverse Reactions: Allergies Allergy/AdvReac Type Severity Reaction Status Date / Time shrimp Allergy RASH Verified 06/20/16 19:29 Seafood Allergy SWELLING Uncoded 01/12/16 13:24 - Medications Medications: Current Medications Acetaminophen (Tylenol 325mg Tab) 650 mg PO Q4 PRN PRN Reason: Fever >100.4 F Last Admin: 12/25/16 17:14 Dose: 650 mg Amlodipine Besylate (Norvasc) 10 mg PO DAILY [facility] Last Admin: 12/26/16 11:15 Dose: 10 mg Clopidogrel Bisulfate (Plavix) 75 mg PO DAILY [facility] Last Admin: 12/26/16 11:16 Dose: 75 mg Dextrose (Dextrose 50% Inj) 0 ml IV STAT PRN; Protocol PRN Reason: Hyglycemia Protocol Dextrose (Glutose 15) 0 gm PO ONCE PRN; Protocol PRN Reason: Hypoglycemia Protocol Enoxaparin Sodium (Lovenox) 40 mg SC DAILY [facility] PRN Reason: Protocol Last Admin: 12/26/16 08:15 Dose: Not Given Hydrochlorothiazide (Hydrodiuril) 25 mg PO DAILY [facility] Last Admin: 12/26/16 11:15 Dose: 25 mg Piperacillin Sod/Tazobactam (Sod 3.375 gm/ Sodium Chloride) 100 mls @ 100 mls/ hr IVPB Q8 [facility] Last Admin: 12/26/16 08:14 Dose: 100 mls/hr Vancomycin HCl 500 mg/ Sodium (Chloride) 100 mls @ 100 mls/hr IVPB DAILY@0100 [facility] Insulin Detemir (Levemir) 18 units SC DAILY [facility] Last Admin: 12/26/16 11:16 Dose: 18 unit Insulin Human Lispro (Humalog) 0 units SC ACHS [facility] PRN Reason: Protocol Last Admin: 12/26/16 11:20 Dose: Not Given Metformin HCl (Glucophage) 500 mg PO BID [facility] Last Admin: 12/26/16 08:15 Dose: Not Given Pravastatin Sodium (Pravachol) 20 mg PO HS [facility] Last Admin: 12/25/16 22:00 Dose: 20 mg Silver Sulfadiazine (Silvadene 1% 20 Gm) 20 ea TOP DAILY@1700 [facility] Last Admin: 12/25/16 17:00 Dose: 1 u Sitagliptin Phosphate (Januvia) 100 mg PO DAILY [facility] Last Admin: 12/26/16 11:15 Dose: 100 mg Valsartan (Diovan) 320 mg PO DAILY [facility] Last Admin: 12/26/16 11:15 Dose: 320 mg Physical Exam - Constitutional Appears: Non-toxic, Cachectic, Chronically Ill - Head Exam Head Exam: ATRAUMATIC, NORMAL INSPECTION, NORMOCEPHALIC - Eye Exam Eye Exam: EOMI, PERRL. absent: Scleral icterus - ENT Exam ENT Exam: Mucous Membranes Dry, Normal External Ear Exam, Normal Oropharynx - Neck Exam Neck exam: Negative for: Lymphadenopathy, Thyromegaly - Respiratory Exam Respiratory Exam: Decreased Breath Sounds, Rhonchi - Cardiovascular Exam Cardiovascular Exam: +S1, +S2 - GI/Abdominal Exam GI & Abdominal Exam: Diminished Bowel Sounds, Distended, Soft. absent: Guarding , Organomegaly, Pulsatile Mass, Rebound, Rigid, Tenderness - Rectal Exam Rectal Exam: Deferred - Exam Exam: NORMAL INSPECTION - Extremities Exam Extremities exam: Positive for: pedal edema, tenderness. Negative for: calf tenderness, pedal pulses present Additional comments: Lower extremity focused exam: Left:BKA Right: Vasc: DP and PT pulses palpable 1/4. CFT < 4 seconds for digits 1-4, CFT delayed to 5th digit. Skin temperature increased from proximal to distal. +1 pitting edema noted to the foot and leg. Neuro: Gross sensation diminished Derm:Superficial ulceration noted to the medial aspect of the hallux, base is granular, periwound is hyperkeratotic. No malodor, no drainage, no probe to bone noted. Ulceration noted to the lateral aspect of the 5th digit with hyperkeratotic periwound, measuring approximately 0.6 cm by 0.6 cm x 0.2 cm, sanginous drainage noted, no malodor, no purulence, no fluctuance, no probe to bone noted. 5th digit is blanched and dusky. Erythema and calor noted on the dorsum of the lateral aspect of the right leg as well as on the anterior love. Ortho: No pain on palpation to right 5th digit or hallux. Amputation noted to the distal aspect of the 3rd digit - Back Exam Back exam: absent: CVA tenderness (L), CVA tenderness (R), paraspinal tenderness - Neurological Exam Neurological exam: Alert, CN II-XII Intact, Oriented x3, Reflexes Normal - Psychiatric Exam Psychiatric exam: Anxious, Depressed - Skin Skin Exam: Dry Results - Vital Signs Recent Vital Signs: Last Vital Signs Temp 99.2 F 12/26/16 00:14 Pulse 97 H 12/26/16 00:14 Resp 20 12/26/16 00:14 BP 138/88 12/26/16 00:14 Pulse Ox 99 12/26/16 00:14 - Labs Result Diagrams: 12/25/16 10:00 12/25/16 10:00 Labs: Laboratory Results - last 24 hr 12/25/16 12/25/16 12/25/16 17:17 17:20 21:00 PT INR APTT POC Glucose (mg/dL) 134 H 73 Lactic Acid 1.3 Vancomycin Peak Vancomycin Trough 12/26/16 12/26/16 12/26/16 00:57 04:26 04:26 PT 11.2 INR 1.08 APTT 38.3 H POC Glucose (mg/dL) Lactic Acid Vancomycin Peak 18.4 L Vancomycin Trough 6.4 12/26/16 12/26/16 06:02 11:20 PT INR APTT POC Glucose (mg/dL) 70 98 Lactic Acid Vancomycin Peak Vancomycin Trough Assessment & Plan (1) Cellulitis Status: Acute (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
[2016-12-26] MEDS: Silver Sulfadiazine 1% Cream (20 gm) TOP SCH (16:41)
[2016-12-26] MEDS: Pravastatin Sodium 20 MG TAB PO SCH (22:18)
--- NOTE | 2016-12-26 23:17 | CP.PCM.PN ---
Subjective - Date & Time of Evaluation Date of Evaluation: 12/26/16 Time of Evaluation: 10:00 - Subjective Subjective: Patient is stable' Has no fever Noted decrease in WBC Noted improvement of cellulitis. Objective - Vital Signs/Intake and Output Vital Signs (last 24 hours): Temp Pulse Resp BP Pulse Ox 99.3 F 89 20 133/60 95 12/26/16 21:09 12/26/16 21:09 12/26/16 21:09 12/26/16 21:09 12/26/16 21:09 - Medications Medications: Current Medications Acetaminophen (Tylenol 325mg Tab) 650 mg PO Q4 PRN PRN Reason: Fever >100.4 F Last Admin: 12/25/16 17:14 Dose: 650 mg Acetaminophen (Tylenol 325mg Tab) 650 mg PO QID PRN PRN Reason: Pain, moderate (4-7) Last Admin: 12/26/16 20:40 Dose: 650 mg Amlodipine Besylate (Norvasc) 10 mg PO DAILY [facility] Last Admin: 12/26/16 11:15 Dose: 10 mg Clopidogrel Bisulfate (Plavix) 75 mg PO DAILY [facility] Last Admin: 12/26/16 11:16 Dose: 75 mg Dextrose (Dextrose 50% Inj) 0 ml IV STAT PRN; Protocol PRN Reason: Hyglycemia Protocol Dextrose (Glutose 15) 0 gm PO ONCE PRN; Protocol PRN Reason: Hypoglycemia Protocol Enoxaparin Sodium (Lovenox) 40 mg SC DAILY [facility] PRN Reason: Protocol Last Admin: 12/26/16 08:15 Dose: Not Given Hydrochlorothiazide (Hydrodiuril) 25 mg PO DAILY [facility] Last Admin: 12/26/16 11:15 Dose: 25 mg Piperacillin Sod/Tazobactam (Sod 3.375 gm/ Sodium Chloride) 100 mls @ 100 mls/ hr IVPB Q8 [facility] Last Admin: 12/26/16 16:40 Dose: 100 mls/hr Vancomycin HCl 500 mg/ Sodium (Chloride) 100 mls @ 100 mls/hr IVPB DAILY@0100 [facility] Insulin Detemir (Levemir) 18 units SC DAILY [facility] Last Admin: 12/26/16 11:16 Dose: 18 unit Insulin Human Lispro (Humalog) 0 units SC ACHS [facility] PRN Reason: Protocol Last Admin: 12/26/16 22:18 Dose: Not Given Metformin HCl (Glucophage) 500 mg PO BID [facility] Last Admin: 12/26/16 16:40 Dose: Not Given Pravastatin Sodium (Pravachol) 20 mg PO HS [facility] Last Admin: 12/26/16 22:18 Dose: 20 mg Silver Sulfadiazine (Silvadene 1% 20 Gm) 20 ea TOP DAILY@1700 [facility] Last Admin: 12/26/16 16:41 Dose: 1 u Sitagliptin Phosphate (Januvia) 100 mg PO DAILY [facility] Last Admin: 12/26/16 11:15 Dose: 100 mg Valsartan (Diovan) 320 mg PO DAILY [facility] Last Admin: 12/26/16 11:15 Dose: 320 mg - Labs Labs: 12/25/16 10:00 12/25/16 10:00 PT 11.2 SECONDS (9.6-11.2) 12/26/16 04:26 INR 1.08 (0.92-1.08) 12/26/16 04:26 APTT 38.3 SECONDS (23.3-32.5) H 12/26/16 04:26 - ENT Exam ENT Exam: Mucous Membranes Moist - Respiratory Exam Respiratory Exam: Clear to Ausculation Bilateral - Cardiovascular Exam Cardiovascular Exam: Irregular Rhythm - GI/Abdominal Exam GI & Abdominal Exam: Normal Bowel Sounds - Extremities Exam Additional comments: resolving rednes on awilda right leg - Psychiatric Exam Psychiatric exam: Normal Mood Assessment and Plan (1) Diabetic ulcer of right foot Status: Acute (2) Atrial fibrillation Status: Acute (3) Cellulitis of right leg Status: Acute (4) Diabetes mellitus type 2, uncontrolled Status: Acute (5) HTN (hypertension) Status: Acute (6) PAD (peripheral artery disease) Status: Acute - Assessment and Plan (Free Text) Plan: Cont meds Con ttx Cont PT recheck labs
[2016-12-27] MEDS: Piperacillin/Tazobact 3.375 GM in Sodium Chloride 0.9% 100 ML IVPB SCH ×3 (00:38→16:07)
[2016-12-27 06:25] LABS: BASO # 0.1 K/uL (0.0-0.2); BASO % 0.6 % (0.0-2.0); EOS # 0.2 K/uL (0.0-0.7); EOS % 1.3 % (0.0-4.0); LYMPH # 1.4 K/uL (1.0-4.3); LYMPH % 10.2 % (20.0-40.0); MEAN CELL VOLUME 91.1 fl (80.0-94.0); MEAN CORPUSCULAR HEMOGLOBIN 30.7 pg (27.0-31.0); MEAN CORPUSCULAR HGB CONC 33.7 g/dL (33.0-37.0); MEAN PLATELET VOLUME 9.7 fl (7.2-11.7); MONO # 1.2 K/uL (0.0-0.8); MONO % 9.1 % (0.0-10.0); NEUT # 10.5 K/uL (1.8-7.0); NEUT % 78.8 % (50.0-75.0); RED CELL DISTRIBUTION WIDTH 12.9 % (11.5-14.5); WHITE BLOOD COUNT 13.3 K/uL (4.8-10.8)
[2016-12-27 06:36] LABS: ALB/GLOB RATIO 0.9 (1.0-2.1); CALCIUM 9.5 mg/dL (8.4-10.2); POTASSIUM 3.9 MMOL/L (3.6-5.0); TOTAL PROTEIN 8.1 G/DL (6.3-8.2)
[2016-12-27] MEDS: Insulin Lispro (humaLOG) 100 Units/ml Inj SC SCH ×4 (06:50→21:38)
--- NOTE | 2016-12-27 07:54 | CP.PCM.PCO ---
Physician Communication Note - Physician Communication Note Physician Communication Note: CT angio reviewed. will sched for peripheral at [facility]3] tomorrow
[2016-12-27] MEDS: Enoxaparin 40 mg Syringe SC SCH (08:23)
[2016-12-27] MEDS: Insulin Detemir 100 Units/ml Inj SC SCH (08:24)
--- NOTE | 2016-12-27 10:09 | CP.PCM.PN ---
Subjective - Date & Time of Evaluation Date of Evaluation: 12/27/16 Time of Evaluation: 10:07 - Subjective Subjective: Patient remains stable Has no chest pain or SOB Afebrile. Has no chest pain or SOB, Objective - Vital Signs/Intake and Output Vital Signs (last 24 hours): Temp Pulse Resp BP Pulse Ox 98.3 F 85 20 116/64 97 12/27/16 07:29 12/27/16 07:29 12/27/16 07:29 12/27/16 07:29 12/27/16 07:29 - Medications Medications: Current Medications Acetaminophen (Tylenol 325mg Tab) 650 mg PO Q4 PRN PRN Reason: Fever >100.4 F Last Admin: 12/25/16 17:14 Dose: 650 mg Acetaminophen (Tylenol 325mg Tab) 650 mg PO QID PRN PRN Reason: Pain, moderate (4-7) Last Admin: 12/26/16 20:40 Dose: 650 mg Amlodipine Besylate (Norvasc) 10 mg PO DAILY [facility] Last Admin: 12/27/16 08:21 Dose: 10 mg Clopidogrel Bisulfate (Plavix) 75 mg PO DAILY [facility] Last Admin: 12/27/16 08:23 Dose: Not Given Dextrose (Dextrose 50% Inj) 0 ml IV STAT PRN; Protocol PRN Reason: Hyglycemia Protocol Dextrose (Glutose 15) 0 gm PO ONCE PRN; Protocol PRN Reason: Hypoglycemia Protocol Enoxaparin Sodium (Lovenox) 40 mg SC DAILY [facility] PRN Reason: Protocol Last Admin: 12/27/16 08:23 Dose: 40 mg Hydrochlorothiazide (Hydrodiuril) 25 mg PO DAILY [facility] Last Admin: 12/27/16 08:21 Dose: 25 mg Piperacillin Sod/Tazobactam (Sod 3.375 gm/ Sodium Chloride) 100 mls @ 100 mls/ hr IVPB Q8 [facility] Last Admin: 12/27/16 08:20 Dose: 100 mls/hr Vancomycin HCl 500 mg/ Sodium (Chloride) 100 mls @ 100 mls/hr IVPB DAILY@0100 [facility] Last Admin: 12/27/16 01:00 Dose: 100 mls/hr Insulin Detemir (Levemir) 18 units SC DAILY [facility] Last Admin: 12/27/16 08:24 Dose: 18 unit Insulin Human Lispro (Humalog) 0 units SC ACHS [facility] PRN Reason: Protocol Last Admin: 12/27/16 06:50 Dose: Not Given Metformin HCl (Glucophage) 500 mg PO BID [facility] Last Admin: 12/27/16 08:21 Dose: Not Given Pravastatin Sodium (Pravachol) 20 mg PO HS [facility] Last Admin: 12/26/16 22:18 Dose: 20 mg Silver Sulfadiazine (Silvadene 1% 20 Gm) 20 ea TOP DAILY@1700 [facility] Last Admin: 12/26/16 16:41 Dose: 1 u Sitagliptin Phosphate (Januvia) 100 mg PO DAILY [facility] Last Admin: 12/27/16 08:21 Dose: 100 mg Valsartan (Diovan) 320 mg PO DAILY [facility] Last Admin: 12/27/16 08:21 Dose: 320 mg - Labs Labs: 12/27/16 06:00 12/27/16 06:00 PT 11.2 SECONDS (9.6-11.2) 12/26/16 04:26 INR 1.08 (0.92-1.08) 12/26/16 04:26 APTT 38.3 SECONDS (23.3-32.5) H 12/26/16 04:26 - Eye Exam Eye Exam: Normal appearance - ENT Exam ENT Exam: Mucous Membranes Moist - Respiratory Exam Respiratory Exam: Clear to Ausculation Bilateral - Cardiovascular Exam Cardiovascular Exam: REGULAR RHYTHM - GI/Abdominal Exam GI & Abdominal Exam: Normal Bowel Sounds - Extremities Exam Additional comments: decreased redness and tenderness on the right leg - Neurological Exam Neurological Exam: CN II-XII Intact, Oriented x3 Assessment and Plan (1) Diabetic ulcer of right foot Status: Acute (2) Atrial fibrillation Status: Acute (3) Cellulitis of right leg Status: Acute (4) Diabetes mellitus type 2, uncontrolled Status: Acute (5) HTN (hypertension) Status: Acute (6) PAD (peripheral artery disease) Status: Acute - Assessment and Plan (Free Text) Plan: Cont meds Cont tx PT follow up with [facility]. cont IV antibiotics.
--- NOTE | 2016-12-27 12:30 | CP.PCM.PN ---
Subjective - Date & Time of Evaluation Date of Evaluation: 12/27/16 Time of Evaluation: 09:00 - Subjective Subjective: mrsa and gram neg from wound Objective - Vital Signs/Intake and Output Vital Signs (last 24 hours): Temp Pulse Resp BP Pulse Ox 98.3 F 85 20 116/64 97 12/27/16 07:29 12/27/16 07:29 12/27/16 07:29 12/27/16 07:29 12/27/16 07:29 - Medications Medications: Current Medications Acetaminophen (Tylenol 325mg Tab) 650 mg PO Q4 PRN PRN Reason: Fever >100.4 F Last Admin: 12/25/16 17:14 Dose: 650 mg Acetaminophen (Tylenol 325mg Tab) 650 mg PO QID PRN PRN Reason: Pain, moderate (4-7) Last Admin: 12/26/16 20:40 Dose: 650 mg Amlodipine Besylate (Norvasc) 10 mg PO DAILY [facility] Last Admin: 12/27/16 08:21 Dose: 10 mg Clopidogrel Bisulfate (Plavix) 75 mg PO DAILY [facility] Last Admin: 12/27/16 08:23 Dose: Not Given Dextrose (Dextrose 50% Inj) 0 ml IV STAT PRN; Protocol PRN Reason: Hyglycemia Protocol Dextrose (Glutose 15) 0 gm PO ONCE PRN; Protocol PRN Reason: Hypoglycemia Protocol Enoxaparin Sodium (Lovenox) 40 mg SC DAILY [facility] PRN Reason: Protocol Last Admin: 12/27/16 08:23 Dose: 40 mg Hydrochlorothiazide (Hydrodiuril) 25 mg PO DAILY [facility] Last Admin: 12/27/16 08:21 Dose: 25 mg Piperacillin Sod/Tazobactam (Sod 3.375 gm/ Sodium Chloride) 100 mls @ 100 mls/ hr IVPB Q8 [facility] Last Admin: 12/27/16 08:20 Dose: 100 mls/hr Vancomycin HCl 500 mg/ Sodium (Chloride) 100 mls @ 100 mls/hr IVPB DAILY@0100 [facility] Last Admin: 12/27/16 01:00 Dose: 100 mls/hr Insulin Detemir (Levemir) 18 units SC DAILY [facility] Last Admin: 12/27/16 08:24 Dose: 18 unit Insulin Human Lispro (Humalog) 0 units SC ACHS [facility] PRN Reason: Protocol Last Admin: 12/27/16 10:55 Dose: 3 units Metformin HCl (Glucophage) 500 mg PO BID [facility] Last Admin: 12/27/16 08:21 Dose: Not Given Pravastatin Sodium (Pravachol) 20 mg PO HS [facility] Last Admin: 12/26/16 22:18 Dose: 20 mg Silver Sulfadiazine (Silvadene 1% 20 Gm) 20 ea TOP DAILY@1700 [facility] Last Admin: 12/26/16 16:41 Dose: 1 u Sitagliptin Phosphate (Januvia) 100 mg PO DAILY [facility] Last Admin: 12/27/16 08:21 Dose: 100 mg Valsartan (Diovan) 320 mg PO DAILY [facility] Last Admin: 12/27/16 08:21 Dose: 320 mg - Labs Labs: 12/27/16 06:00 12/27/16 06:00 PT 11.2 SECONDS (9.6-11.2) 12/26/16 04:26 INR 1.08 (0.92-1.08) 12/26/16 04:26 APTT 38.3 SECONDS (23.3-32.5) H 12/26/16 04:26 - Constitutional Appears: Non-toxic, Chronically Ill - Head Exam Head Exam: NORMOCEPHALIC - Eye Exam Eye Exam: PERRL. absent: Scleral icterus - ENT Exam ENT Exam: Mucous Membranes Dry - Neck Exam Neck Exam: absent: Lymphadenopathy - Cardiovascular Exam Cardiovascular Exam: REGULAR RHYTHM - GI/Abdominal Exam GI & Abdominal Exam: Distended, Soft - Extremities Exam Extremities Exam: absent: Calf Tenderness Additional comments: left BKA - Back Exam Back Exam: absent: CVA tenderness (L), CVA tenderness (R) - Neurological Exam Neurological Exam: Alert, Awake, Oriented x3 - Psychiatric Exam Psychiatric exam: Normal Mood Assessment and Plan (1) Cellulitis Status: Acute (2) Diabetic ulcer of right foot Status: Acute (3) 2Nd degree AV block Status: Acute (4) Altered mental status Status: Acute (5) Atrial fibrillation Status: Acute (6) Cellulitis Status: Acute (7) Cellulitis of right leg Status: Acute (8) Chronic renal insufficiency, stage II (mild) Status: Acute (9) Diabetes mellitus type 2, uncontrolled Status: Acute (10) HTN (hypertension) Status: Acute (11) PAD (peripheral artery disease) Status: Acute (12) Type 2 diabetes mellitus Status: Acute - Assessment and Plan (Free Text) Plan: await MRI foot
--- NOTE | 2016-12-27 15:01 | RAD ---
PROCEDURE: Right foot x-ray HISTORY: Right foot ulcers COMPARISON: 09/01/2015 TECHNIQUE: Two views of the right foot were performed. FINDINGS: There is evidence of prior amputation of the distal right 3rd toe. Stable degenerative changes of the 1st metatarsophalangeal joint are noted. No fracture is seen. There is evidence of some lucency within the distal phalanx of the right 5th toe, possibly new from prior study. Minimal ulcer overlying this region is not excluded. Early osteomyelitis cannot be excluded. Subtalar joint is unremarkable. Tarsal bones are intact. IMPRESSION: Small area of lucency and erosive change in the distal phalanx of the right 5th toe. Possible small overlying soft tissue ulcer. Osteomyelitis in this region is not excluded. No appreciable fracture. Stable degenerative changes of the 1st metatarsal phalangeal joint. Report was called to the patient's physician at the time of this dictation. Patient is under the care of the podiatry service.
[2016-12-27] MEDS: Silver Sulfadiazine 1% Cream (20 gm) TOP SCH (16:07)
--- NOTE | 2016-12-27 16:13 | CP.PCM.PN ---
Subjective - Date & Time of Evaluation Date of Evaluation: 12/27/16 Time of Evaluation: 08:00 - Subjective Subjective: 81 year old male was seen resting at bedside regarding right lower extremity cellulitis and right 5th and hallux ulcerations. Denies any acute events overnight. Denies any pain to his right lower extremity. Pt reports noticible reduction in redness. He denies n/v/f/c/sob/cp. Objective - Vital Signs/Intake and Output Vital Signs (last 24 hours): Temp Pulse Resp BP Pulse Ox 98.3 F 85 20 116/64 97 12/27/16 07:29 12/27/16 07:29 12/27/16 07:29 12/27/16 07:29 12/27/16 07:29 - Medications Medications: Current Medications Acetaminophen (Tylenol 325mg Tab) 650 mg PO Q4 PRN PRN Reason: Fever >100.4 F Last Admin: 12/25/16 17:14 Dose: 650 mg Acetaminophen (Tylenol 325mg Tab) 650 mg PO QID PRN PRN Reason: Pain, moderate (4-7) Last Admin: 12/26/16 20:40 Dose: 650 mg Amlodipine Besylate (Norvasc) 10 mg PO DAILY [facility] Last Admin: 12/27/16 08:21 Dose: 10 mg Clopidogrel Bisulfate (Plavix) 75 mg PO DAILY [facility] Last Admin: 12/27/16 12:42 Dose: 75 mg Dextrose (Dextrose 50% Inj) 0 ml IV STAT PRN; Protocol PRN Reason: Hyglycemia Protocol Dextrose (Glutose 15) 0 gm PO ONCE PRN; Protocol PRN Reason: Hypoglycemia Protocol Enoxaparin Sodium (Lovenox) 40 mg SC DAILY [facility] PRN Reason: Protocol Last Admin: 12/27/16 08:23 Dose: 40 mg Hydrochlorothiazide (Hydrodiuril) 25 mg PO DAILY [facility] Last Admin: 12/27/16 08:21 Dose: 25 mg Piperacillin Sod/Tazobactam (Sod 3.375 gm/ Sodium Chloride) 100 mls @ 100 mls/ hr IVPB Q8 [facility] Last Admin: 12/27/16 16:07 Dose: 100 mls/hr Vancomycin HCl 500 mg/ Sodium (Chloride) 100 mls @ 100 mls/hr IVPB DAILY@0100 [facility] Last Admin: 12/27/16 01:00 Dose: 100 mls/hr Insulin Detemir (Levemir) 18 units SC DAILY [facility] Last Admin: 12/27/16 08:24 Dose: 18 unit Insulin Human Lispro (Humalog) 0 units SC ACHS [facility] PRN Reason: Protocol Last Admin: 12/27/16 16:07 Dose: Not Given Metformin HCl (Glucophage) 500 mg PO BID [facility] Last Admin: 12/27/16 16:07 Dose: Not Given Pravastatin Sodium (Pravachol) 20 mg PO HS [facility] Last Admin: 12/26/16 22:18 Dose: 20 mg Silver Sulfadiazine (Silvadene 1% 20 Gm) 20 ea TOP DAILY@1700 [facility] Last Admin: 12/27/16 16:07 Dose: 1 u Sitagliptin Phosphate (Januvia) 100 mg PO DAILY [facility] Last Admin: 12/27/16 08:21 Dose: 100 mg Valsartan (Diovan) 320 mg PO DAILY [facility] Last Admin: 12/27/16 08:21 Dose: 320 mg - Labs Labs: 12/27/16 06:00 12/27/16 06:00 PT 11.2 SECONDS (9.6-11.2) 12/26/16 04:26 INR 1.08 (0.92-1.08) 12/26/16 04:26 APTT 38.3 SECONDS (23.3-32.5) H 12/26/16 04:26 - Constitutional Appears: Well, Non-toxic, No Acute Distress - Extremities Exam Additional comments: Lower extremity focused exam: Left:BKA Right: Vasc: DP and PT pulses non-palpable. CFT < 4 seconds for digits 1-4, CFT delayed to 5th digit. Skin temperature reduced from proximal to distal. +1 pitting edema noted to the foot and leg. Neuro: Gross sensation diminished Derm:Superficial ulceration noted to the medial aspect of the hallux measuring approximately 0.5 cm x 0.5 cm x 0.2 cm, base is granular,. No malodor, no drainage, no probe to bone noted. Ulceration noted to the lateral aspect of the 5th digit with granular base, measuring approximately 1 cm by 1 cm x 0.2 cm , sanginous drainage noted, no malodor, no purulence, no fluctuance, no probe to bone noted. 5th digit is blanched and dusky. Erythema and calor noted on the dorsum of the lateral aspect of the right leg as well as on the anterior love- slowly resolving. Ortho: No pain on palpation to right 5th digit or hallux. Amputation noted to the distal aspect of the 3rd digit - Neurological Exam Neurological Exam: Alert, Awake, Oriented x3 - Psychiatric Exam Psychiatric exam: Normal Affect, Normal Mood Assessment and Plan - Assessment and Plan (Free Text) Assessment: 81 year old male with right leg cellulitis and right hallux and fifth digit ulcerations secondary to DM Plan: Patient examined and evaluated with attending, Dr. Brito, present. Chart, vitals, labs reviewed;WBC 13.3 Wound culture- pending, prelim shows G(-) Rods x2 & Staph Aureus. Right foot wounds dressed with Silvadene, sterile gauze, DSD-to be dressed twice daily, nursing communication written Discussed the possibility of surgical intervention IV abx per ID Discussed potential vascular intervention with Dr. Smith. Pt to go for peripheral angio tomorrow @ [facility]. 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 Podiatry will continue to follow patient while in house
--- NOTE | 2016-12-27 20:35 | CP.PCM.PN ---
Subjective - Date & Time of Evaluation Date of Evaluation: 12/27/16 Time of Evaluation: 20:30 - Subjective Subjective: patient has less foot pain. CT angio has tibial peroneal disease. Objective - Vital Signs/Intake and Output Vital Signs (last 24 hours): Temp Pulse Resp BP Pulse Ox 98.7 F 76 20 115/66 97 12/27/16 16:14 12/27/16 16:14 12/27/16 16:14 12/27/16 16:14 12/27/16 16:14 - Medications Medications: Current Medications Acetaminophen (Tylenol 325mg Tab) 650 mg PO Q4 PRN PRN Reason: Fever >100.4 F Last Admin: 12/25/16 17:14 Dose: 650 mg Acetaminophen (Tylenol 325mg Tab) 650 mg PO QID PRN PRN Reason: Pain, moderate (4-7) Last Admin: 12/27/16 20:07 Dose: 650 mg Amlodipine Besylate (Norvasc) 10 mg PO DAILY [facility] Last Admin: 12/27/16 08:21 Dose: 10 mg Clopidogrel Bisulfate (Plavix) 75 mg PO DAILY [facility] Last Admin: 12/27/16 12:42 Dose: 75 mg Dextrose (Dextrose 50% Inj) 0 ml IV STAT PRN; Protocol PRN Reason: Hyglycemia Protocol Dextrose (Glutose 15) 0 gm PO ONCE PRN; Protocol PRN Reason: Hypoglycemia Protocol Enoxaparin Sodium (Lovenox) 40 mg SC DAILY [facility] PRN Reason: Protocol Last Admin: 12/27/16 08:23 Dose: 40 mg Hydrochlorothiazide (Hydrodiuril) 25 mg PO DAILY [facility] Last Admin: 12/27/16 08:21 Dose: 25 mg Piperacillin Sod/Tazobactam (Sod 3.375 gm/ Sodium Chloride) 100 mls @ 100 mls/ hr IVPB Q8 [facility] Last Admin: 12/27/16 16:07 Dose: 100 mls/hr Vancomycin HCl 500 mg/ Sodium (Chloride) 100 mls @ 100 mls/hr IVPB DAILY@0100 [facility] Last Admin: 12/27/16 01:00 Dose: 100 mls/hr Insulin Detemir (Levemir) 18 units SC DAILY [facility] Last Admin: 12/27/16 08:24 Dose: 18 unit Insulin Human Lispro (Humalog) 0 units SC ACHS [facility] PRN Reason: Protocol Last Admin: 12/27/16 16:07 Dose: Not Given Metformin HCl (Glucophage) 500 mg PO BID [facility] Last Admin: 12/27/16 16:07 Dose: Not Given Pravastatin Sodium (Pravachol) 20 mg PO HS [facility] Last Admin: 12/26/16 22:18 Dose: 20 mg Silver Sulfadiazine (Silvadene 1% 20 Gm) 20 ea TOP DAILY@1700 [facility] Last Admin: 12/27/16 16:07 Dose: 1 u Sitagliptin Phosphate (Januvia) 100 mg PO DAILY [facility] Last Admin: 12/27/16 08:21 Dose: 100 mg Valsartan (Diovan) 320 mg PO DAILY [facility] Last Admin: 12/27/16 08:21 Dose: 320 mg - Labs Labs: 12/27/16 06:00 12/27/16 06:00 PT 11.2 SECONDS (9.6-11.2) 12/26/16 04:26 INR 1.08 (0.92-1.08) 12/26/16 04:26 APTT 38.3 SECONDS (23.3-32.5) H 12/26/16 04:26 - Constitutional Appears: Non-toxic - Head Exam Head Exam: NORMAL INSPECTION - Eye Exam Eye Exam: Normal appearance - ENT Exam ENT Exam: Mucous Membranes Moist - Neck Exam Neck Exam: Full ROM - Respiratory Exam Respiratory Exam: Decreased Breath Sounds - Cardiovascular Exam Cardiovascular Exam: REGULAR RHYTHM - GI/Abdominal Exam GI & Abdominal Exam: Normal Bowel Sounds - Rectal Exam Rectal Exam: Deferred - Extremities Exam Extremities Exam: absent: Pedal Edema - Back Exam Back Exam: NORMAL INSPECTION - Neurological Exam Neurological Exam: Alert - Psychiatric Exam Psychiatric exam: Normal Affect - Skin Skin Exam: Normal Color Assessment and Plan (1) Diabetic ulcer of right foot Assessment & Plan: will plan for peripehral angiogram Status: Acute (2) Cellulitis Assessment & Plan: continue antibiotics Status: Acute (3) HTN (hypertension) Assessment & Plan: blood pressure control Status: Acute (4) PAD (peripheral artery disease) Assessment & Plan: for angiogram Status: Acute
[2016-12-27] MEDS: Pravastatin Sodium 20 MG TAB PO SCH (21:38)
[2016-12-28] MEDS: Piperacillin/Tazobact 3.375 GM in Sodium Chloride 0.9% 100 ML IVPB SCH ×3 (00:08→17:49)
[2016-12-28] MEDS: Insulin Lispro (humaLOG) 100 Units/ml Inj SC SCH ×3 (06:35→17:48)
--- NOTE | 2016-12-28 08:43 | CP.PCM.PN ---
Subjective - Date & Time of Evaluation Date of Evaluation: 12/28/16 Time of Evaluation: 07:20 - Subjective Subjective: 81 year old male was seen resting at bedside regarding right lower extremity cellulitis and right 5th and hallux ulcerations. Denies any acute events overnight. Denies any pain to his right lower extremity. Pt reports noticeable reduction in redness. He denies n/v/f/c/sob/cp. Pt is aware he is o go to [facility] later today for potential peripheral vascular intervention. Objective - Vital Signs/Intake and Output Vital Signs (last 24 hours): Temp Pulse Resp BP Pulse Ox 99.3 F 77 20 124/67 97 12/28/16 07:42 12/28/16 07:42 12/28/16 07:42 12/28/16 07:42 12/28/16 07:42 - Medications Medications: Current Medications Acetaminophen (Tylenol 325mg Tab) 650 mg PO Q4 PRN PRN Reason: Fever >100.4 F Last Admin: 12/25/16 17:14 Dose: 650 mg Acetaminophen (Tylenol 325mg Tab) 650 mg PO QID PRN PRN Reason: Pain, moderate (4-7) Last Admin: 12/27/16 20:07 Dose: 650 mg Amlodipine Besylate (Norvasc) 10 mg PO DAILY [facility] Last Admin: 12/27/16 08:21 Dose: 10 mg Clopidogrel Bisulfate (Plavix) 75 mg PO DAILY [facility] Last Admin: 12/27/16 12:42 Dose: 75 mg Dextrose (Dextrose 50% Inj) 0 ml IV STAT PRN; Protocol PRN Reason: Hyglycemia Protocol Dextrose (Glutose 15) 0 gm PO ONCE PRN; Protocol PRN Reason: Hypoglycemia Protocol Enoxaparin Sodium (Lovenox) 40 mg SC DAILY [facility] PRN Reason: Protocol Last Admin: 12/27/16 08:23 Dose: 40 mg Hydrochlorothiazide (Hydrodiuril) 25 mg PO DAILY [facility] Last Admin: 12/27/16 08:21 Dose: 25 mg Piperacillin Sod/Tazobactam (Sod 3.375 gm/ Sodium Chloride) 100 mls @ 100 mls/ hr IVPB Q8 [facility] Last Admin: 12/28/16 00:08 Dose: 100 mls/hr Vancomycin HCl 500 mg/ Sodium (Chloride) 100 mls @ 100 mls/hr IVPB DAILY@0100 [facility] Last Admin: 12/28/16 01:20 Dose: 100 mls/hr Insulin Detemir (Levemir) 18 units SC DAILY [facility] Last Admin: 12/27/16 08:24 Dose: 18 unit Insulin Human Lispro (Humalog) 0 units SC ACHS [facility] PRN Reason: Protocol Last Admin: 12/28/16 06:35 Dose: Not Given Metformin HCl (Glucophage) 500 mg PO BID [facility] Last Admin: 12/27/16 16:07 Dose: Not Given Pravastatin Sodium (Pravachol) 20 mg PO HS [facility] Last Admin: 12/27/16 21:38 Dose: 20 mg Silver Sulfadiazine (Silvadene 1% 20 Gm) 20 ea TOP DAILY@1700 [facility] Last Admin: 12/27/16 16:07 Dose: 1 u Sitagliptin Phosphate (Januvia) 100 mg PO DAILY [facility] Last Admin: 12/27/16 08:21 Dose: 100 mg Valsartan (Diovan) 320 mg PO DAILY [facility] Last Admin: 12/27/16 08:21 Dose: 320 mg - Labs Labs: 12/27/16 06:00 12/27/16 06:00 PT 11.2 SECONDS (9.6-11.2) 12/26/16 04:26 INR 1.08 (0.92-1.08) 12/26/16 04:26 APTT 38.3 SECONDS (23.3-32.5) H 12/26/16 04:26 - Constitutional Appears: Well, Non-toxic, No Acute Distress - Extremities Exam Additional comments: Lower extremity focused exam: Left:BKA Right: Vasc: DP and PT pulses non-palpable. CFT < 4 seconds for digits 1-4, CFT delayed to 5th digit. Skin temperature reduced from proximal to distal. +1 pitting edema noted to the foot and leg. Neuro: Gross sensation diminished Derm:Superficial ulceration noted to the medial aspect of the hallux measuring approximately 0.6 cm x 0.5 cm x 0.2 cm, base is granular,. No malodor, no drainage, no probe to bone noted. Ulceration noted to the lateral aspect of the 5th digit with granular base, measuring approximately 1 cm by 1 cm x 0.2 cm , sanginous drainage noted, no malodor, no purulence, no fluctuance, no probe to bone noted. 5th digit is blanched and dusky. Erythema and calor noted on the dorsum of the lateral aspect of the right leg as well as on the anterior love- slowly resolving. Ortho: No pain on palpation to right 5th digit or hallux. Amputation noted to the distal aspect of the 3rd digit - Neurological Exam Neurological Exam: Alert, Awake, Oriented x3 - Psychiatric Exam Psychiatric exam: Normal Affect, Normal Mood Assessment and Plan - Assessment and Plan (Free Text) Assessment: 81 year old male with right leg cellulitis and right hallux and fifth digit ulcerations secondary to DM Plan: Patient treated and evaluated. Chart, vitals, labs reviewed. Discussed with attending, Dr. Brito. -Final rigth foot Wound culture results: Acinetobacter Baumannii, Proteus Mirabilis, Staph Aureus. -Right foot cleansed with sterile saline. Redressed with Silvadene, sterile gauze, DSD. 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 -Vascular peripheral angio & potential intervention with Dr. Smith scheduled for today @ [facility]. Podiatry will continue to follow patient while in house
[2016-12-28] MEDS: Insulin Detemir 100 Units/ml Inj SC SCH (08:44)
[2016-12-28] MEDS: Silver Sulfadiazine 1% Cream (20 gm) TOP SCH (17:49)
--- NOTE | 2016-12-28 21:33 | CP.PCM.PN ---
Subjective - Date & Time of Evaluation Date of Evaluation: 12/28/16 Time of Evaluation: 17:00 - Subjective Subjective: s/p peripheral angiogram. 100% occluded AT. s/p angiplosty with 2.0 x 80 mmg MONICA 0.63. patint will need eval of foot woumd Objective - Vital Signs/Intake and Output Vital Signs (last 24 hours): Temp Pulse Resp BP Pulse Ox 99.3 F 77 20 124/67 97 12/28/16 07:42 12/28/16 08:44 12/28/16 07:42 12/28/16 08:44 12/28/16 07:42 - Medications Medications: Current Medications Acetaminophen (Tylenol 325mg Tab) 650 mg PO Q4 PRN PRN Reason: Fever >100.4 F Last Admin: 12/25/16 17:14 Dose: 650 mg Acetaminophen (Tylenol 325mg Tab) 650 mg PO QID PRN PRN Reason: Pain, moderate (4-7) Last Admin: 12/27/16 20:07 Dose: 650 mg Amlodipine Besylate (Norvasc) 10 mg PO DAILY [facility] Last Admin: 12/28/16 08:44 Dose: 10 mg Clopidogrel Bisulfate (Plavix) 75 mg PO DAILY [facility] Last Admin: 12/28/16 08:43 Dose: 75 mg Dextrose (Dextrose 50% Inj) 0 ml IV STAT PRN; Protocol PRN Reason: Hyglycemia Protocol Dextrose (Glutose 15) 0 gm PO ONCE PRN; Protocol PRN Reason: Hypoglycemia Protocol Enoxaparin Sodium (Lovenox) 40 mg SC DAILY [facility] PRN Reason: Protocol Last Admin: 12/27/16 08:23 Dose: 40 mg Hydrochlorothiazide (Hydrodiuril) 25 mg PO DAILY [facility] Last Admin: 12/28/16 08:44 Dose: 25 mg Piperacillin Sod/Tazobactam (Sod 3.375 gm/ Sodium Chloride) 100 mls @ 100 mls/ hr IVPB Q8 [facility] Last Admin: 12/28/16 17:49 Dose: Not Given Vancomycin HCl 500 mg/ Sodium (Chloride) 100 mls @ 100 mls/hr IVPB DAILY@0100 [facility] Last Admin: 12/28/16 01:20 Dose: 100 mls/hr Insulin Detemir (Levemir) 18 units SC DAILY [facility] Last Admin: 12/28/16 08:44 Dose: 18 unit Insulin Human Lispro (Humalog) 0 units SC ACHS [facility] PRN Reason: Protocol Last Admin: 12/28/16 17:48 Dose: Not Given Metformin HCl (Glucophage) 500 mg PO BID [facility] Last Admin: 12/28/16 17:48 Dose: Not Given Pravastatin Sodium (Pravachol) 20 mg PO HS [facility] Last Admin: 12/27/16 21:38 Dose: 20 mg Silver Sulfadiazine (Silvadene 1% 20 Gm) 20 ea TOP DAILY@1700 [facility] Last Admin: 12/28/16 17:49 Dose: Not Given Sitagliptin Phosphate (Januvia) 100 mg PO DAILY [facility] Last Admin: 12/28/16 08:43 Dose: 100 mg Valsartan (Diovan) 320 mg PO DAILY [facility] Last Admin: 12/28/16 08:43 Dose: 320 mg - Labs Labs: 12/27/16 06:00 12/27/16 06:00 PT 11.2 SECONDS (9.6-11.2) 12/26/16 04:26 INR 1.08 (0.92-1.08) 12/26/16 04:26 APTT 38.3 SECONDS (23.3-32.5) H 12/26/16 04:26 Assessment and Plan (1) Diabetic ulcer of right foot Status: Acute (2) Cellulitis Status: Acute (3) HTN (hypertension) Status: Acute (4) PAD (peripheral artery disease) Status: Acute
[2016-12-28] MEDS ORDERED: Insulin Regular 100 units/ml SC STA (21:55)
[2016-12-28] MEDS: Pravastatin Sodium 20 MG TAB PO SCH (22:33)
[2016-12-28] MEDS: Insulin Regular 100 units/ml SC SCH (22:34)
[2016-12-29] MEDS: Piperacillin/Tazobact 3.375 GM in Sodium Chloride 0.9% 100 ML IVPB SCH ×2 (01:37→08:37)
--- NOTE | 2016-12-29 06:20 | CP.PCM.PN ---
Subjective - Date & Time of Evaluation Date of Evaluation: 12/29/16 Time of Evaluation: 06:25 - Subjective Subjective: 81 year old male was seen at bedside regarding right 5th digit cellulitis with gangrenous changes and hallux ulceration. Pt is 1 day s/p right foot angioplasty , which cleared anterio tibial artery occlusion. Pt has no major discomfort post -procedure. Denies any pain to his right lower extremity. Pt reports noticeable reduction in redness. He denies n/v/f/c/sob/cp. Objective - Vital Signs/Intake and Output Vital Signs (last 24 hours): Temp Pulse Resp BP Pulse Ox 98.5 F 75 15 120/68 96 12/28/16 20:05 12/28/16 20:05 12/28/16 20:05 12/28/16 20:05 12/28/16 20:05 - Medications Medications: Current Medications Acetaminophen (Tylenol 325mg Tab) 650 mg PO Q4 PRN PRN Reason: Fever >100.4 F Last Admin: 12/25/16 17:14 Dose: 650 mg Acetaminophen (Tylenol 325mg Tab) 650 mg PO QID PRN PRN Reason: Pain, moderate (4-7) Last Admin: 12/27/16 20:07 Dose: 650 mg Amlodipine Besylate (Norvasc) 10 mg PO DAILY [facility] Last Admin: 12/28/16 08:44 Dose: 10 mg Clopidogrel Bisulfate (Plavix) 75 mg PO DAILY [facility] Last Admin: 12/28/16 08:43 Dose: 75 mg Dextrose (Dextrose 50% Inj) 0 ml IV STAT PRN; Protocol PRN Reason: Hyglycemia Protocol Dextrose (Glutose 15) 0 gm PO ONCE PRN; Protocol PRN Reason: Hypoglycemia Protocol Enoxaparin Sodium (Lovenox) 40 mg SC DAILY [facility] PRN Reason: Protocol Last Admin: 12/27/16 08:23 Dose: 40 mg Hydrochlorothiazide (Hydrodiuril) 25 mg PO DAILY [facility] Last Admin: 12/28/16 08:44 Dose: 25 mg Piperacillin Sod/Tazobactam (Sod 3.375 gm/ Sodium Chloride) 100 mls @ 100 mls/ hr IVPB Q8 [facility] Last Admin: 12/29/16 01:37 Dose: 100 mls/hr Vancomycin HCl 500 mg/ Sodium (Chloride) 100 mls @ 100 mls/hr IVPB DAILY@0100 [facility] Last Admin: 12/29/16 00:35 Dose: 100 mls/hr Insulin Detemir (Levemir) 18 units SC DAILY [facility] Last Admin: 12/28/16 08:44 Dose: 18 unit Insulin Human Regular (Humulin R) 0 units SC ACHS [facility] Last Admin: 12/28/16 22:34 Dose: Not Given Metformin HCl (Glucophage) 500 mg PO BID [facility] Last Admin: 12/28/16 17:48 Dose: Not Given Pravastatin Sodium (Pravachol) 20 mg PO HS [facility] Last Admin: 12/28/16 22:33 Dose: 20 mg Silver Sulfadiazine (Silvadene 1% 20 Gm) 20 ea TOP DAILY@1700 [facility] Last Admin: 12/28/16 17:49 Dose: Not Given Sitagliptin Phosphate (Januvia) 100 mg PO DAILY [facility] Last Admin: 12/28/16 08:43 Dose: 100 mg Valsartan (Diovan) 320 mg PO DAILY [facility] Last Admin: 12/28/16 08:43 Dose: 320 mg - Labs Labs: 12/27/16 06:00 12/27/16 06:00 PT 11.2 SECONDS (9.6-11.2) 12/26/16 04:26 INR 1.08 (0.92-1.08) 12/26/16 04:26 APTT 38.3 SECONDS (23.3-32.5) H 12/26/16 04:26 - Constitutional Appears: Well, Non-toxic, No Acute Distress - Extremities Exam Additional comments: Lower extremity focused exam: Left:BKA Right: Vasc: DP and PT pulses non-palpable. CFT < 4 seconds for digits 1-4, CFT delayed to 5th digit. Skin temperature reduced from proximal to distal, though markedly improved to forefoot. +1 pitting edema noted to the foot and leg. Neuro: Gross sensation diminished Derm:Superficial ulceration noted to the medial aspect of the hallux measuring approximately 0.6 cm x 0.5 cm x 0.2 cm, base is granular,. No malodor, no drainage, no probe to bone noted. Ulceration noted to the lateral aspect of the 5th digit with granular base, measuring approximately 1 cm by 1 cm x 0.2 cm , sanginous drainage noted, no malodor, no purulence, no fluctuance, no probe to bone noted. 5th digit is blanched and dusky. Erythema and calor noted on the dorsum of the lateral aspect of the right leg as well as on the anterior love- slowly resolving. Ortho: No pain on palpation to right 5th digit or hallux. Amputation noted to the distal aspect of the 3rd digit - Neurological Exam Neurological Exam: Alert, Awake, Oriented x3 Assessment and Plan - Assessment and Plan (Free Text) Assessment: 81 year old male with right leg cellulitis and right hallux and fifth digit ulcerations secondary to DM and PVD. Plan: Pt evaluated and treated. Status post peripheral angioplasty which showed 100% Anterior tibial artery occlusion, angioplasty performed. Vascular surgery recommends assessing progress of re-vascularization over next 7 days to asses if digital amputation needed secondary to PVD in lieu of re-vascularization failure. . -Right foot cleansed with sterile saline. Re-dressed with Silvadene, sterile gauze, DSD. To be dressed twice daily, nursing communication written -Continue IV abx per ID. to discuss potential need for PICC line. -MRI-pending. Discussed with attending, Dr. Brito who aware of pertinent information and endorses plan. Podiatry will continue to follow patient while in house
[2016-12-29] MEDS: Insulin Regular 100 units/ml SC SCH ×5 (06:31→22:05)
[2016-12-29 07:00] LABS: BLOOD UREA NITROGEN 30 mg/dl (9-20); CALCIUM 9.1 mg/dL (8.4-10.2); CARBON DIOXIDE 26 mmol/L (22-30); CHLORIDE 101 mmol/L (98-107); GFR AFRICAN-AMERICAN > 60; GLUCOSE,RANDOM 148 mg/dL (75-110); POTASSIUM 4.2 MMOL/L (3.6-5.0); SODIUM 139 mmol/l (132-148)
[2016-12-29 07:01] LABS: HEMATOCRIT 38.6 % (35.0-51.0); MEAN CELL VOLUME 91.5 fl (80.0-94.0); MEAN CORPUSCULAR HEMOGLOBIN 29.3 pg (27.0-31.0); RED CELL DISTRIBUTION WIDTH 12.8 % (11.5-14.5); WHITE BLOOD COUNT 12.2 K/uL (4.8-10.8)
[2016-12-29] MEDS: Insulin Detemir 100 Units/ml Inj SC SCH (08:33)
--- NOTE | 2016-12-29 09:44 | CP.PCM.PN ---
Subjective - Date & Time of Evaluation Date of Evaluation: 12/28/16 Time of Evaluation: 18:30 - Subjective Subjective: Patient had angioplasty Noted 100 % ant tibial art occlusion Has no pain. Has no fever. Objective - Vital Signs/Intake and Output Vital Signs (last 24 hours): Temp Pulse Resp BP Pulse Ox 97.6 F 86 20 138/74 99 12/29/16 08:07 12/29/16 08:07 12/29/16 08:07 12/29/16 08:31 12/29/16 08:07 - Medications Medications: Current Medications Acetaminophen (Tylenol 325mg Tab) 650 mg PO Q4 PRN PRN Reason: Fever >100.4 F Last Admin: 12/25/16 17:14 Dose: 650 mg Acetaminophen (Tylenol 325mg Tab) 650 mg PO QID PRN PRN Reason: Pain, moderate (4-7) Last Admin: 12/27/16 20:07 Dose: 650 mg Amlodipine Besylate (Norvasc) 10 mg PO DAILY [facility] Last Admin: 12/29/16 08:31 Dose: 10 mg Clopidogrel Bisulfate (Plavix) 75 mg PO DAILY [facility] Last Admin: 12/29/16 08:31 Dose: 75 mg Dextrose (Dextrose 50% Inj) 0 ml IV STAT PRN; Protocol PRN Reason: Hyglycemia Protocol Dextrose (Glutose 15) 0 gm PO ONCE PRN; Protocol PRN Reason: Hypoglycemia Protocol Enoxaparin Sodium (Lovenox) 40 mg SC DAILY [facility] PRN Reason: Protocol Last Admin: 12/27/16 08:23 Dose: 40 mg Hydrochlorothiazide (Hydrodiuril) 25 mg PO DAILY [facility] Last Admin: 12/29/16 08:31 Dose: 25 mg Piperacillin Sod/Tazobactam (Sod 3.375 gm/ Sodium Chloride) 100 mls @ 100 mls/ hr IVPB Q8 [facility] Last Admin: 12/29/16 08:37 Dose: 100 mls/hr Vancomycin HCl 500 mg/ Sodium (Chloride) 100 mls @ 100 mls/hr IVPB DAILY@0100 [facility] Last Admin: 12/29/16 00:35 Dose: 100 mls/hr Insulin Detemir (Levemir) 18 units SC DAILY [facility] Last Admin: 12/29/16 08:33 Dose: 18 unit Insulin Human Regular (Humulin R) 0 units SC ACHS [facility] Last Admin: 12/29/16 06:31 Dose: 3 units Metformin HCl (Glucophage) 500 mg PO BID [facility] Last Admin: 12/29/16 08:32 Dose: 500 mg Pravastatin Sodium (Pravachol) 20 mg PO HS [facility] Last Admin: 12/28/16 22:33 Dose: 20 mg Silver Sulfadiazine (Silvadene 1% 20 Gm) 20 ea TOP DAILY@1700 [facility] Last Admin: 12/28/16 17:49 Dose: Not Given Sitagliptin Phosphate (Januvia) 100 mg PO DAILY [facility] Last Admin: 12/29/16 08:31 Dose: 100 mg Valsartan (Diovan) 320 mg PO DAILY [facility] Last Admin: 12/29/16 08:32 Dose: 320 mg - Labs Labs: 12/29/16 05:40 12/29/16 05:40 PT 11.2 SECONDS (9.6-11.2) 12/26/16 04:26 INR 1.08 (0.92-1.08) 12/26/16 04:26 APTT 38.3 SECONDS (23.3-32.5) H 12/26/16 04:26 - Head Exam Head Exam: NORMAL INSPECTION - Eye Exam Eye Exam: Normal appearance - ENT Exam ENT Exam: Mucous Membranes Moist - Respiratory Exam Respiratory Exam: NORMAL BREATHING PATTERN - Cardiovascular Exam Cardiovascular Exam: REGULAR RHYTHM - GI/Abdominal Exam GI & Abdominal Exam: Normal Bowel Sounds - Extremities Exam Additional comments: improvement of cellulitis - Neurological Exam Neurological Exam: CN II-XII Intact, Oriented x3 Assessment and Plan (1) Diabetic ulcer of right foot Status: Acute (2) Atrial fibrillation Status: Acute (3) Cellulitis of right leg Status: Acute (4) Diabetes mellitus type 2, uncontrolled Status: Acute (5) HTN (hypertension) Status: Acute (6) PAD (peripheral artery disease) Status: Acute - Assessment and Plan (Free Text) Plan: cont meds cont IV antibiotics follow up with Dr hipolito ontiveros of IV antibiotics.
--- NOTE | 2016-12-29 11:19 | CP.PCM.PN ---
Subjective - Date & Time of Evaluation Date of Evaluation: 12/29/16 Time of Evaluation: 11:17 - Subjective Subjective: evaluated with attending. no overnight events. no complaints. right LE improved , decreased erythema and pain. eating, drinking, making urine and BM. Denies chest pain, SOB, abd pain. Objective - Vital Signs/Intake and Output Vital Signs (last 24 hours): Temp Pulse Resp BP Pulse Ox 97.6 F 86 20 138/74 99 12/29/16 08:07 12/29/16 08:07 12/29/16 08:07 12/29/16 08:31 12/29/16 08:07 - Medications Medications: Current Medications Acetaminophen (Tylenol 325mg Tab) 650 mg PO Q4 PRN PRN Reason: Fever >100.4 F Last Admin: 12/25/16 17:14 Dose: 650 mg Acetaminophen (Tylenol 325mg Tab) 650 mg PO QID PRN PRN Reason: Pain, moderate (4-7) Last Admin: 12/27/16 20:07 Dose: 650 mg Amlodipine Besylate (Norvasc) 10 mg PO DAILY [facility] Last Admin: 12/29/16 08:31 Dose: 10 mg Clopidogrel Bisulfate (Plavix) 75 mg PO DAILY [facility] Last Admin: 12/29/16 08:31 Dose: 75 mg Dextrose (Dextrose 50% Inj) 0 ml IV STAT PRN; Protocol PRN Reason: Hyglycemia Protocol Dextrose (Glutose 15) 0 gm PO ONCE PRN; Protocol PRN Reason: Hypoglycemia Protocol Enoxaparin Sodium (Lovenox) 40 mg SC DAILY [facility] PRN Reason: Protocol Last Admin: 12/27/16 08:23 Dose: 40 mg Hydrochlorothiazide (Hydrodiuril) 25 mg PO DAILY [facility] Last Admin: 12/29/16 08:31 Dose: 25 mg Piperacillin Sod/Tazobactam (Sod 3.375 gm/ Sodium Chloride) 100 mls @ 100 mls/ hr IVPB Q8 [facility] Last Admin: 12/29/16 08:37 Dose: 100 mls/hr Vancomycin HCl 500 mg/ Sodium (Chloride) 100 mls @ 100 mls/hr IVPB DAILY@0100 [facility] Last Admin: 12/29/16 00:35 Dose: 100 mls/hr Insulin Detemir (Levemir) 18 units SC DAILY [facility] Last Admin: 12/29/16 08:33 Dose: 18 unit Insulin Human Regular (Humulin R) 0 units SC ACHS [facility] Last Admin: 12/29/16 06:31 Dose: 3 units Metformin HCl (Glucophage) 500 mg PO BID [facility] Last Admin: 12/29/16 08:32 Dose: 500 mg Pravastatin Sodium (Pravachol) 20 mg PO HS [facility] Last Admin: 12/28/16 22:33 Dose: 20 mg Silver Sulfadiazine (Silvadene 1% 20 Gm) 20 ea TOP DAILY@1700 [facility] Last Admin: 12/28/16 17:49 Dose: Not Given Sitagliptin Phosphate (Januvia) 100 mg PO DAILY [facility] Last Admin: 12/29/16 08:31 Dose: 100 mg Valsartan (Diovan) 320 mg PO DAILY [facility] Last Admin: 12/29/16 08:32 Dose: 320 mg - Labs Labs: 12/29/16 05:40 12/29/16 05:40 PT 11.2 SECONDS (9.6-11.2) 12/26/16 04:26 INR 1.08 (0.92-1.08) 12/26/16 04:26 APTT 38.3 SECONDS (23.3-32.5) H 12/26/16 04:26 - Constitutional Appears: Non-toxic, No Acute Distress - Head Exam Head Exam: NORMAL INSPECTION - Eye Exam Eye Exam: Normal appearance - ENT Exam ENT Exam: Mucous Membranes Moist - Neck Exam Neck Exam: Normal Inspection - Respiratory Exam Respiratory Exam: Chest Wall Tenderness - Cardiovascular Exam Cardiovascular Exam: REGULAR RHYTHM - GI/Abdominal Exam GI & Abdominal Exam: Soft - Extremities Exam Extremities Exam: absent: Pedal Edema Additional comments: no erythema past marking on right lower ext, no erythema, no TTP. right toes wrapped, CDI. no TTP. sensation/motor grossly intact. cap refill <2 sec - Neurological Exam Neurological Exam: Alert, Oriented x3 - Skin Skin Exam: Dry, Warm Assessment and Plan (1) Cellulitis Assessment & Plan: -improved clinically -Vanc/Zosyn -blood cx NGTD -wound cx: S. aureus, proteus mirabalis, acinetobacter baumannii -ID on board, appreciate input. will need to determine if IV abx required based on MRI or if PO abx acceptable and for how many additional days. -podiatry on board, appreciate input Status: Acute (2) Diabetic ulcer of right foot Assessment & Plan: -Vanc/Zosyn -blood cx NGTD -wound cx: S. aureus, proteus mirabalis, acinetobacter baumannii -ID on board, appreciate input -podiatry on board, appreciate input -MRI right foot, r/o OM Status: Acute (3) Atrial fibrillation Assessment & Plan: -monitor -no home meds for rate control Status: Chronic (4) Diabetes mellitus type 2, uncontrolled Assessment & Plan: -c/w home meds -accuchecks -SSI Status: Chronic (5) HTN (hypertension) Assessment & Plan: -c/w home meds Status: Chronic (6) PAD (peripheral artery disease) Assessment & Plan: c/w home meds Status: Chronic (7) HLD (hyperlipidemia) Assessment & Plan: statin Status: Chronic (8) DVT prophylaxis Assessment & Plan: -lovenox Status: Acute - Assessment and Plan (Free Text) Assessment: 81yo M with PMHx PVD, 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 osteomyelitis of the left 5th digit.
--- NOTE | 2016-12-29 15:38 | CP.PCM.PN ---
Subjective - Date & Time of Evaluation Date of Evaluation: 12/29/16 Time of Evaluation: 08:00 - Subjective Subjective: weak but ambulatory right foot dressing dry afebrile nad Objective - Vital Signs/Intake and Output Vital Signs (last 24 hours): Temp Pulse Resp BP Pulse Ox 97.6 F 86 20 138/74 99 12/29/16 08:07 12/29/16 08:07 12/29/16 08:07 12/29/16 08:31 12/29/16 08:07 - Medications Medications: Current Medications Acetaminophen (Tylenol 325mg Tab) 650 mg PO Q4 PRN PRN Reason: Fever >100.4 F Last Admin: 12/25/16 17:14 Dose: 650 mg Acetaminophen (Tylenol 325mg Tab) 650 mg PO QID PRN PRN Reason: Pain, moderate (4-7) Last Admin: 12/27/16 20:07 Dose: 650 mg Amlodipine Besylate (Norvasc) 10 mg PO DAILY [facility] Last Admin: 12/29/16 08:31 Dose: 10 mg Clopidogrel Bisulfate (Plavix) 75 mg PO DAILY [facility] Last Admin: 12/29/16 08:31 Dose: 75 mg Dextrose (Dextrose 50% Inj) 0 ml IV STAT PRN; Protocol PRN Reason: Hyglycemia Protocol Dextrose (Glutose 15) 0 gm PO ONCE PRN; Protocol PRN Reason: Hypoglycemia Protocol Enoxaparin Sodium (Lovenox) 40 mg SC DAILY [facility] PRN Reason: Protocol Last Admin: 12/27/16 08:23 Dose: 40 mg Hydrochlorothiazide (Hydrodiuril) 25 mg PO DAILY [facility] Last Admin: 12/29/16 08:31 Dose: 25 mg Piperacillin Sod/Tazobactam (Sod 3.375 gm/ Sodium Chloride) 100 mls @ 100 mls/ hr IVPB Q8 [facility] Last Admin: 12/29/16 08:37 Dose: 100 mls/hr Vancomycin HCl 500 mg/ Sodium (Chloride) 100 mls @ 100 mls/hr IVPB DAILY@0100 [facility] Last Admin: 12/29/16 00:35 Dose: 100 mls/hr Insulin Detemir (Levemir) 18 units SC DAILY [facility] Last Admin: 12/29/16 08:33 Dose: 18 unit Insulin Human Regular (Humulin R) 0 units SC ACHS [facility] Last Admin: 12/29/16 12:18 Dose: 18 units Metformin HCl (Glucophage) 500 mg PO BID [facility] Last Admin: 12/29/16 08:32 Dose: 500 mg Pravastatin Sodium (Pravachol) 20 mg PO HS [facility] Last Admin: 12/28/16 22:33 Dose: 20 mg Silver Sulfadiazine (Silvadene 1% 20 Gm) 20 ea TOP DAILY@1700 [facility] Last Admin: 12/28/16 17:49 Dose: Not Given Sitagliptin Phosphate (Januvia) 100 mg PO DAILY [facility] Last Admin: 12/29/16 08:31 Dose: 100 mg Valsartan (Diovan) 320 mg PO DAILY [facility] Last Admin: 12/29/16 08:32 Dose: 320 mg - Labs Labs: 12/29/16 05:40 12/29/16 05:40 PT 11.2 SECONDS (9.6-11.2) 12/26/16 04:26 INR 1.08 (0.92-1.08) 12/26/16 04:26 APTT 38.3 SECONDS (23.3-32.5) H 12/26/16 04:26 - Constitutional Appears: Non-toxic, Cachectic, Chronically Ill - Head Exam Head Exam: NORMAL INSPECTION, NORMOCEPHALIC - Eye Exam Eye Exam: PERRL. absent: Scleral icterus - ENT Exam ENT Exam: Mucous Membranes Dry, Normal External Ear Exam - Neck Exam Neck Exam: absent: Lymphadenopathy, Thyromegaly - Respiratory Exam Respiratory Exam: Decreased Breath Sounds, Clear to Ausculation Bilateral - Cardiovascular Exam Cardiovascular Exam: REGULAR RHYTHM - GI/Abdominal Exam GI & Abdominal Exam: Distended, Soft - Rectal Exam Rectal Exam: Deferred Assessment and Plan (1) Cellulitis Status: Acute (2) Diabetic ulcer of right foot Status: Acute (3) 2Nd degree AV block Status: Acute (4) Altered mental status Status: Acute (5) Atrial fibrillation Status: Chronic (6) Cellulitis Status: Acute (7) Cellulitis of right leg Status: Acute (8) Chronic renal insufficiency, stage II (mild) Status: Acute (9) Diabetes mellitus type 2, uncontrolled Status: Chronic (10) HTN (hypertension) Status: Chronic (11) PAD (peripheral artery disease) Status: Chronic (12) Type 2 diabetes mellitus Status: Acute - Assessment and Plan (Free Text) Assessment: for mri CONT IV RX
[2016-12-29] MEDS: Silver Sulfadiazine 1% Cream (20 gm) TOP SCH (17:08)
--- NOTE | 2016-12-29 17:59 | CP.PCM.PN ---
Subjective - Date & Time of Evaluation Date of Evaluation: 12/29/16 Time of Evaluation: 16:35 - Subjective Subjective: patient feels better. He is s/p angioplasty of the right anterior tibial artery (was occluded 100%). Objective - Vital Signs/Intake and Output Vital Signs (last 24 hours): Temp Pulse Resp BP Pulse Ox 97.9 F 79 20 123/64 95 12/29/16 16:03 12/29/16 16:03 12/29/16 16:03 12/29/16 16:03 12/29/16 16:03 - Medications Medications: Current Medications Acetaminophen (Tylenol 325mg Tab) 650 mg PO Q4 PRN PRN Reason: Fever >100.4 F Last Admin: 12/25/16 17:14 Dose: 650 mg Acetaminophen (Tylenol 325mg Tab) 650 mg PO QID PRN PRN Reason: Pain, moderate (4-7) Last Admin: 12/29/16 17:10 Dose: 650 mg Amlodipine Besylate (Norvasc) 10 mg PO DAILY [facility] Last Admin: 12/29/16 08:31 Dose: 10 mg Clopidogrel Bisulfate (Plavix) 75 mg PO DAILY [facility] Last Admin: 12/29/16 08:31 Dose: 75 mg Dextrose (Dextrose 50% Inj) 0 ml IV STAT PRN; Protocol PRN Reason: Hyglycemia Protocol Dextrose (Glutose 15) 0 gm PO ONCE PRN; Protocol PRN Reason: Hypoglycemia Protocol Enoxaparin Sodium (Lovenox) 40 mg SC DAILY [facility] PRN Reason: Protocol Last Admin: 12/27/16 08:23 Dose: 40 mg Hydrochlorothiazide (Hydrodiuril) 25 mg PO DAILY [facility] Last Admin: 12/29/16 08:31 Dose: 25 mg Ertapenem 1 gm/ Sodium (Chloride) 100 mls @ 100 mls/hr IVPB DAILY [facility] Last Admin: 12/29/16 17:05 Dose: 100 mls/hr Insulin Detemir (Levemir) 10 units SC DAILY [facility] Insulin Human Regular (Humulin R) 0 units SC ACCU-CHECK [facility] Last Admin: 12/29/16 17:04 Dose: Not Given Metformin HCl (Glucophage) 500 mg PO BID [facility] Last Admin: 12/29/16 17:05 Dose: Not Given Pravastatin Sodium (Pravachol) 20 mg PO HS [facility] Last Admin: 12/28/16 22:33 Dose: 20 mg Silver Sulfadiazine (Silvadene 1% 20 Gm) 20 ea TOP DAILY@1700 [facility] Last Admin: 12/29/16 17:08 Dose: Not Given Sitagliptin Phosphate (Januvia) 100 mg PO DAILY [facility] Last Admin: 12/29/16 08:31 Dose: 100 mg Valsartan (Diovan) 320 mg PO DAILY [facility] Last Admin: 12/29/16 08:32 Dose: 320 mg - Labs Labs: 12/29/16 05:40 12/29/16 16:35 PT 11.2 SECONDS (9.6-11.2) 12/26/16 04:26 INR 1.08 (0.92-1.08) 12/26/16 04:26 APTT 38.3 SECONDS (23.3-32.5) H 12/26/16 04:26 - Constitutional Appears: Non-toxic - Head Exam Head Exam: NORMAL INSPECTION - Eye Exam Eye Exam: Normal appearance - ENT Exam ENT Exam: Mucous Membranes Moist - Neck Exam Neck Exam: Full ROM - Respiratory Exam Respiratory Exam: NORMAL BREATHING PATTERN - Cardiovascular Exam Cardiovascular Exam: REGULAR RHYTHM - GI/Abdominal Exam GI & Abdominal Exam: Normal Bowel Sounds - Rectal Exam Rectal Exam: Deferred - Extremities Exam Extremities Exam: absent: Pedal Edema - Back Exam Back Exam: NORMAL INSPECTION - Neurological Exam Neurological Exam: Alert - Psychiatric Exam Psychiatric exam: Normal Affect - Skin Skin Exam: Normal Color Assessment and Plan (1) Diabetic ulcer of right foot Assessment & Plan: s/p angioplasty right anterior tibial artery. recommend ASA/Plavix Status: Acute (2) Cellulitis Assessment & Plan: improved Status: Acute (3) HTN (hypertension) Assessment & Plan: blood pressure control Status: Chronic (4) PAD (peripheral artery disease) Assessment & Plan: ASA Plavix. s/p endovascular intervention of the right AT. Status: Chronic
[2016-12-29] MEDS ORDERED: ceFAZolin 2 GM in Sodium Chloride 0.9% 100 ML IVPB SCH (21:00)
[2016-12-29] MEDS: Pravastatin Sodium 20 MG TAB PO SCH (21:17)
[2016-12-30] MEDS: Insulin Regular 100 units/ml SC SCH ×4 (06:08→22:57)
--- NOTE | 2016-12-30 06:58 | CP.PCM.PN ---
Subjective - Date & Time of Evaluation Date of Evaluation: 12/30/16 Time of Evaluation: 06:55 - Subjective Subjective: 81 year old male was seen at bedside regarding right 5th digit cellulitis with gangrenous changes and hallux ulceration. Pt is 2 day s/p right foot angioplasty , which cleared anterio tibial artery occlusion. Pt has no major discomfort post -procedure. Denies any pain to his right lower extremity. Pt reports noticeable reduction in redness. He denies n/v/f/c/sob/cp. Objective - Vital Signs/Intake and Output Vital Signs (last 24 hours): Temp Pulse Resp BP Pulse Ox 97.6 F 73 19 135/66 99 12/30/16 00:51 12/30/16 00:51 12/30/16 00:51 12/30/16 00:51 12/30/16 00:51 - Medications Medications: Current Medications Acetaminophen (Tylenol 325mg Tab) 650 mg PO Q4 PRN PRN Reason: Fever >100.4 F Last Admin: 12/25/16 17:14 Dose: 650 mg Acetaminophen (Tylenol 325mg Tab) 650 mg PO QID PRN PRN Reason: Pain, moderate (4-7) Last Admin: 12/29/16 17:10 Dose: 650 mg Amlodipine Besylate (Norvasc) 10 mg PO DAILY [facility] Last Admin: 12/29/16 08:31 Dose: 10 mg Clopidogrel Bisulfate (Plavix) 75 mg PO DAILY [facility] Last Admin: 12/29/16 08:31 Dose: 75 mg Dextrose (Dextrose 50% Inj) 0 ml IV STAT PRN; Protocol PRN Reason: Hyglycemia Protocol Dextrose (Glutose 15) 0 gm PO ONCE PRN; Protocol PRN Reason: Hypoglycemia Protocol Enoxaparin Sodium (Lovenox) 40 mg SC DAILY [facility] PRN Reason: Protocol Last Admin: 12/27/16 08:23 Dose: 40 mg Hydrochlorothiazide (Hydrodiuril) 25 mg PO DAILY [facility] Last Admin: 12/29/16 08:31 Dose: 25 mg Ertapenem 1 gm/ Sodium (Chloride) 100 mls @ 100 mls/hr IVPB DAILY [facility] Last Admin: 12/29/16 17:05 Dose: 100 mls/hr Insulin Detemir (Levemir) 10 units SC DAILY [facility] Insulin Human Regular (Humulin R) 0 units SC ACCU-CHECK [facility] Last Admin: 12/30/16 06:08 Dose: Not Given Metformin HCl (Glucophage) 500 mg PO BID [facility] Last Admin: 12/29/16 17:05 Dose: Not Given Pravastatin Sodium (Pravachol) 20 mg PO HS [facility] Last Admin: 12/29/16 21:17 Dose: 20 mg Silver Sulfadiazine (Silvadene 1% 20 Gm) 20 ea TOP DAILY@1700 [facility] Last Admin: 12/29/16 17:08 Dose: Not Given Sitagliptin Phosphate (Januvia) 100 mg PO DAILY [facility] Last Admin: 12/29/16 08:31 Dose: 100 mg Valsartan (Diovan) 320 mg PO DAILY [facility] Last Admin: 12/29/16 08:32 Dose: 320 mg - Labs Labs: 12/29/16 05:40 12/29/16 17:30 PT 11.2 SECONDS (9.6-11.2) 12/26/16 04:26 INR 1.08 (0.92-1.08) 12/26/16 04:26 APTT 38.3 SECONDS (23.3-32.5) H 12/26/16 04:26 - Constitutional Appears: Well, Non-toxic, No Acute Distress - Extremities Exam Additional comments: Lower extremity focused exam: Left:BKA Right: Vasc: DP and PT pulses non-palpable. CFT < 4 seconds for digits 1-4, CFT delayed to 5th digit. Skin temperature reduced from proximal to distal, though markedly improved to forefoot. +1 pitting edema noted to the foot and leg. Neuro: Gross sensation diminished Derm:Superficial ulceration noted to the medial aspect of the hallux measuring approximately 0.6 cm x 0.5 cm x 0.2 cm, base is granular,. No malodor, no drainage, no probe to bone noted. Ulceration noted to the lateral aspect of the 5th digit with granular base, measuring approximately 1 cm by 1 cm x 0.2 cm , sanginous drainage noted, no malodor, no purulence, no fluctuance, no probe to bone noted. 5th digit is blanched and dusky. Erythema and calor noted on the dorsum of the lateral aspect of the right leg as well as on the anterior love- slowly resolving. Ortho: No pain on palpation to right 5th digit or hallux. Amputation noted to the distal aspect of the 3rd digit - Neurological Exam Neurological Exam: Alert, Awake, Oriented x3 - Psychiatric Exam Psychiatric exam: Normal Affect, Normal Mood Assessment and Plan - Assessment and Plan (Free Text) Assessment: 81 year old male with right leg cellulitis and right hallux and fifth digit ulcerations secondary to DM and PVD. Plan: Pt evaluated and treated. Vascular surgery recommends assessing progress of re-vascularization over next 7 days to asses if digital amputation needed secondary to PVD in lieu of re- vascularization failure. . -Right foot cleansed with sterile saline. Re-dressed with Silvadene, sterile gauze, DSD. To be dressed twice daily, nursing communication written -Continue IV abx per ID. to discuss potential need for PICC line. -MRI cancelled due to pacemaker, pt to undergo bone scan instead to asses osteomyelits. Discussed with attending, Dr. Brito who aware of pertinent information and endorses plan. -Pt stable from podiatric standpoint for discharge, IV abx outpatient, and follow-up to asses indication for surgical intervention. -Podiatry will continue to follow patient while in house
[2016-12-30] MEDS: Insulin Detemir 100 Units/ml Inj SC SCH (09:31)
--- NOTE | 2016-12-30 12:13 | CP.PCM.PN ---
Subjective - Date & Time of Evaluation Date of Evaluation: 12/30/16 Time of Evaluation: 12:09 - Subjective Subjective: evaluated with attending. no overnight events. no complaints. eating, drinking, making urine and BM. Denies chest pain, SOB, abd pain, LE pain. Objective - Vital Signs/Intake and Output Vital Signs (last 24 hours): Temp Pulse Resp BP Pulse Ox 97.9 F 79 20 141/72 93 L 12/30/16 08:53 12/30/16 08:53 12/30/16 08:53 12/30/16 09:30 12/30/16 08:53 - Medications Medications: Current Medications Acetaminophen (Tylenol 325mg Tab) 650 mg PO Q4 PRN PRN Reason: Fever >100.4 F Last Admin: 12/25/16 17:14 Dose: 650 mg Acetaminophen (Tylenol 325mg Tab) 650 mg PO QID PRN PRN Reason: Pain, moderate (4-7) Last Admin: 12/29/16 17:10 Dose: 650 mg Amlodipine Besylate (Norvasc) 10 mg PO DAILY [facility] Last Admin: 12/30/16 09:30 Dose: 10 mg Clopidogrel Bisulfate (Plavix) 75 mg PO DAILY [facility] Last Admin: 12/30/16 09:30 Dose: 75 mg Dextrose (Dextrose 50% Inj) 0 ml IV STAT PRN; Protocol PRN Reason: Hyglycemia Protocol Dextrose (Glutose 15) 0 gm PO ONCE PRN; Protocol PRN Reason: Hypoglycemia Protocol Enoxaparin Sodium (Lovenox) 40 mg SC DAILY [facility] PRN Reason: Protocol Last Admin: 12/27/16 08:23 Dose: 40 mg Hydrochlorothiazide (Hydrodiuril) 25 mg PO DAILY [facility] Last Admin: 12/30/16 09:30 Dose: 25 mg Ertapenem 1 gm/ Sodium (Chloride) 100 mls @ 100 mls/hr IVPB DAILY [facility] Last Admin: 12/29/16 17:05 Dose: 100 mls/hr Insulin Detemir (Levemir) 10 units SC DAILY [facility] Last Admin: 12/30/16 09:31 Dose: 10 units Insulin Human Regular (Humulin R) 0 units SC ACCU-CHECK [facility] Last Admin: 12/30/16 06:08 Dose: Not Given Metformin HCl (Glucophage) 500 mg PO BID [facility] Last Admin: 12/30/16 09:30 Dose: 500 mg Pravastatin Sodium (Pravachol) 20 mg PO HS [facility] Last Admin: 12/29/16 21:17 Dose: 20 mg Silver Sulfadiazine (Silvadene 1% 20 Gm) 20 ea TOP DAILY@1700 [facility] Last Admin: 12/29/16 17:08 Dose: Not Given Sitagliptin Phosphate (Januvia) 100 mg PO DAILY [facility] Last Admin: 12/30/16 09:30 Dose: 100 mg Valsartan (Diovan) 320 mg PO DAILY [facility] Last Admin: 12/30/16 09:29 Dose: 320 mg - Labs Labs: 12/29/16 05:40 12/29/16 17:30 PT 11.2 SECONDS (9.6-11.2) 12/26/16 04:26 INR 1.08 (0.92-1.08) 12/26/16 04:26 APTT 38.3 SECONDS (23.3-32.5) H 12/26/16 04:26 - Constitutional Appears: Non-toxic, No Acute Distress - Head Exam Head Exam: NORMAL INSPECTION - Eye Exam Eye Exam: Normal appearance - ENT Exam ENT Exam: Mucous Membranes Moist - Neck Exam Neck Exam: Normal Inspection - Respiratory Exam Respiratory Exam: Clear to Ausculation Bilateral - Cardiovascular Exam Cardiovascular Exam: REGULAR RHYTHM - GI/Abdominal Exam GI & Abdominal Exam: Soft - Extremities Exam Extremities Exam: absent: Pedal Edema Additional comments: right LE: no erythema, no induration, no flulctuance right toes: ulcer 1st digit, 5th digit - Back Exam Back Exam: NORMAL INSPECTION - Neurological Exam Neurological Exam: Alert, Oriented x3 - Skin Skin Exam: Dry, Warm Assessment and Plan (1) Diabetic ulcer of right foot Assessment & Plan: -stopped Vanc/Zosyn -started ertapenem -PICC with IR, 6 weeks IV abx -blood cx NGTD -wound cx: S. aureus, proteus mirabalis, acinetobacter baumannii -ID on board, appreciate input -podiatry on board, appreciate input. no intervention for now -MRI right foot, not able to complete d/t pacemaker -bone scan, r/o OM Status: Acute (2) Cellulitis Status: Resolved (3) Atrial fibrillation Assessment & Plan: -monitor -no home meds for rate control Status: Chronic (4) Diabetes mellitus type 2, uncontrolled Assessment & Plan: -c/w home meds -accuchecks -SSI Status: Chronic (5) HTN (hypertension) Assessment & Plan: -c/w home meds Status: Chronic (6) PAD (peripheral artery disease) Assessment & Plan: c/w home meds Status: Chronic (7) HLD (hyperlipidemia) Assessment & Plan: -statin Status: Chronic (8) DVT prophylaxis Assessment & Plan: -lovenox Status: Acute - Assessment and Plan (Free Text) Assessment: Dispo: [facility] for 6weeks IV abx and therapy
[2016-12-30] MEDS ORDERED: Lidocaine 1% Inj (20ml) ONE (12:43)
--- NOTE | 2016-12-30 12:47 | PCM.SURG1 ---
Surgeon's Initial Post Op Note - Surgeon's Notes Surgeon: Karel Arciniega MD Strategic Development Manager: None Type of Anesthesia: Local Pre-Operative Diagnosis: Foot infection Operative Findings: US showed a patent left basilic vein. Post-Operative Diagnosis: Foot infection. Operation Performed: Left basilic vein single lumen picc placement, tip in SVC. Length is 37 cm. Specimen/Specimens Removed: None Estimated Blood Loss: EBL {In ML}: 2 Blood Products Given: N/A Drains Used: No Drains Post-Op Condition: Fair Date of Surgery/Procedure: 12/30/16 Time of Surgery/Procedure: 13:00
--- NOTE | 2016-12-30 15:04 | NM ---
PROCEDURE: Three-phase bone scan. HISTORY: r/o osteomyelitis COMPARISON: 12/25/2016. Bilateral foot radiographs. TECHNIQUE: Radionuclide dose: 26.2 Tc99m MDP Site of administration: Indwelling intravenous line Technique: Three-phase FINDINGS: Flow component: Increase flow to the foot distally at the level of the digits. No focal abnormalities. Blood pool component: Accumulation of radionuclide in the soft tissues of the right foot without focal abnormality. Delayed images at 3:00: Foci of increased uptake distal tuft 1st digit. Uptake in the right ankle likely degenerative, posttraumatic. IMPRESSION: Findings consistent with cellulitis without evidence of acute osteomyelitis.
[2016-12-30] MEDS: Pravastatin Sodium 20 MG TAB PO SCH (22:58)
[2016-12-31 00:54] VITALS: O2SAT 99
[2016-12-31] MEDS: Insulin Regular 100 units/ml SC SCH ×3 (06:23→16:29)
--- NOTE | 2016-12-31 06:40 | CP.PCM.PN ---
Subjective - Date & Time of Evaluation Date of Evaluation: 12/31/16 Time of Evaluation: 06:40 - Subjective Subjective: 81 year old male was seen at bedside regarding right 5th digit cellulitis with gangrenous changes and hallux ulceration. Pt has no major discomfort post- procedure. Denies any pain to his right lower extremity. He denies n/v/f/c/sob/ cp. Objective - Vital Signs/Intake and Output Vital Signs (last 24 hours): Temp Pulse Resp BP Pulse Ox 98.6 F 70 19 118/58 L 99 12/31/16 00:00 12/31/16 00:00 12/31/16 00:00 12/31/16 00:00 12/31/16 00:00 - Medications Medications: Current Medications Acetaminophen (Tylenol 325mg Tab) 650 mg PO Q4 PRN PRN Reason: Fever >100.4 F Last Admin: 12/25/16 17:14 Dose: 650 mg Acetaminophen (Tylenol 325mg Tab) 650 mg PO QID PRN PRN Reason: Pain, moderate (4-7) Last Admin: 12/29/16 17:10 Dose: 650 mg Amlodipine Besylate (Norvasc) 10 mg PO DAILY [facility] Last Admin: 12/30/16 09:30 Dose: 10 mg Aspirin (Aspirin Chewable) 81 mg PO DAILY [facility] Last Admin: 12/30/16 17:17 Dose: 81 mg Clopidogrel Bisulfate (Plavix) 75 mg PO DAILY [facility] Last Admin: 12/30/16 09:30 Dose: 75 mg Dextrose (Dextrose 50% Inj) 0 ml IV STAT PRN; Protocol PRN Reason: Hyglycemia Protocol Dextrose (Glutose 15) 0 gm PO ONCE PRN; Protocol PRN Reason: Hypoglycemia Protocol Enoxaparin Sodium (Lovenox) 40 mg SC DAILY [facility] PRN Reason: Protocol Last Admin: 12/27/16 08:23 Dose: 40 mg Hydrochlorothiazide (Hydrodiuril) 25 mg PO DAILY [facility] Last Admin: 12/30/16 09:30 Dose: 25 mg Ertapenem 1 gm/ Sodium (Chloride) 100 mls @ 100 mls/hr IVPB DAILY@1700 [facility] Last Admin: 12/30/16 19:00 Dose: Not Given Insulin Detemir (Levemir) 10 units SC DAILY [facility] Last Admin: 12/30/16 09:31 Dose: 10 units Insulin Human Regular (Humulin R) 0 units SC ACCU-CHECK [facility] Last Admin: 12/31/16 06:23 Dose: 2 units Metformin HCl (Glucophage) 500 mg PO BID [facility] Last Admin: 12/30/16 17:13 Dose: 500 mg Pravastatin Sodium (Pravachol) 20 mg PO HS [facility] Last Admin: 12/30/16 22:58 Dose: 20 mg Silver Sulfadiazine (Silvadene 1% 20 Gm) 20 ea TOP DAILY@1700 [facility] Last Admin: 12/29/16 17:08 Dose: Not Given Sitagliptin Phosphate (Januvia) 100 mg PO DAILY [facility] Last Admin: 12/30/16 09:30 Dose: 100 mg Valsartan (Diovan) 320 mg PO DAILY [facility] Last Admin: 12/30/16 09:29 Dose: 320 mg - Labs Labs: 12/29/16 05:40 12/29/16 17:30 PT 11.2 SECONDS (9.6-11.2) 12/26/16 04:26 INR 1.08 (0.92-1.08) 12/26/16 04:26 APTT 38.3 SECONDS (23.3-32.5) H 12/26/16 04:26 - Constitutional Appears: Well, Non-toxic, No Acute Distress - Extremities Exam Additional comments: ower extremity focused exam: Left Leg:BKA Right Foot: Vasc: DP and PT pulses non-palpable. CFT < 4 seconds for digits 1-4, CFT delayed to 5th digit. Skin temperature reduced from proximal to distal, though markedly improved to forefoot. +1 pitting edema noted to the foot and leg. Neuro: Gross sensation diminished Derm:Superficial ulceration noted to the medial aspect of the hallux measuring approximately 0.6 cm x 0.5 cm x 0.2 cm, base is granular,. No malodor, no drainage, no probe to bone noted. Ulceration noted to the lateral aspect of the 5th digit with granular base, measuring approximately 1 cm by 1 cm x 0.2 cm , sanginous drainage noted, no malodor, no purulence, no fluctuance, no probe to bone noted. 5th digit is blanched and dusky. Erythema and calor noted on the dorsum of the lateral aspect of the right leg as well as on the anterior love- slowly resolving. Ortho: No pain on palpation to right 5th digit or hallux. Amputation noted to the distal aspect of the 3rd digit - Neurological Exam Neurological Exam: Alert, Awake, Oriented x3 - Psychiatric Exam Psychiatric exam: Normal Affect, Normal Mood Assessment and Plan - Assessment and Plan (Free Text) Assessment: 81 year old male with 1) right leg cellulitis, resolved 2) Right hallux and fifth digit ulcerations secondary to DM & PVD. Plan: Pt evaluated and treated. -Right foot cleansed with sterile saline. Re-dressed with Silvadene, sterile gauze, DSD. To be dressed twice daily, nursing communication written -PICC line in place. -Bone scan negative for right foot osteomyelitis. Discussed with attending, Dr. Brito who aware of pertinent information and endorses plan. -Pt stable from podiatric standpoint for discharge, IV abx outpatient, to follow up 01/06/17 in [facility] for right 5th digit amputation, surgery scheduled. -Pt awaiting [facility] placement. Podiatry will continue to follow patient while in house
[2016-12-31 08:34] VITALS: BP 148/68; PULSE 77; RESP 20; TEMP 97.9
[2016-12-31] MEDS: Insulin Detemir 100 Units/ml Inj SC SCH (09:31)
[2016-12-31 09:37] LABS: HEMATOCRIT 37.9 % (35.0-51.0); MEAN CELL VOLUME 91.8 fl (80.0-94.0); MEAN CORPUSCULAR HEMOGLOBIN 29.9 pg (27.0-31.0); MEAN CORPUSCULAR HGB CONC 32.6 g/dL (33.0-37.0); WHITE BLOOD COUNT 9.3 K/uL (4.8-10.8)
[2016-12-31 09:51] LABS: CALCIUM 8.9 mg/dL (8.4-10.2); POTASSIUM 4.6 MMOL/L (3.6-5.0)
--- NOTE | 2016-12-31 12:41 | CP.PCM.PN ---
Subjective - Date & Time of Evaluation Date of Evaluation: 12/31/16 Time of Evaluation: 12:38 - Subjective Subjective: evaluated with attending. no overnight events. no complaints. eating, drinking, making urine. Denies chest pain, SOB, abd pain, LE pain. PICC line placed. completed bone scan Objective - Vital Signs/Intake and Output Vital Signs (last 24 hours): Temp Pulse Resp BP Pulse Ox 97.9 F 77 20 148/68 99 12/31/16 08:33 12/31/16 09:32 12/31/16 08:33 12/31/16 09:32 12/31/16 08:33 - Medications Medications: Current Medications Acetaminophen (Tylenol 325mg Tab) 650 mg PO Q4 PRN PRN Reason: Fever >100.4 F Last Admin: 12/25/16 17:14 Dose: 650 mg Acetaminophen (Tylenol 325mg Tab) 650 mg PO QID PRN PRN Reason: Pain, moderate (4-7) Last Admin: 12/29/16 17:10 Dose: 650 mg Amlodipine Besylate (Norvasc) 10 mg PO DAILY [facility] Last Admin: 12/31/16 09:32 Dose: 10 mg Aspirin (Aspirin Chewable) 81 mg PO DAILY [facility] Last Admin: 12/31/16 09:30 Dose: 81 mg Clopidogrel Bisulfate (Plavix) 75 mg PO DAILY [facility] Last Admin: 12/31/16 09:33 Dose: 75 mg Dextrose (Dextrose 50% Inj) 0 ml IV STAT PRN; Protocol PRN Reason: Hyglycemia Protocol Dextrose (Glutose 15) 0 gm PO ONCE PRN; Protocol PRN Reason: Hypoglycemia Protocol Enoxaparin Sodium (Lovenox) 40 mg SC DAILY [facility] PRN Reason: Protocol Last Admin: 12/27/16 08:23 Dose: 40 mg Hydrochlorothiazide (Hydrodiuril) 25 mg PO DAILY [facility] Last Admin: 12/31/16 09:31 Dose: 25 mg Ertapenem 1 gm/ Sodium (Chloride) 100 mls @ 100 mls/hr IVPB DAILY@1700 [facility] Last Admin: 12/30/16 19:00 Dose: Not Given Insulin Detemir (Levemir) 10 units SC DAILY [facility] Last Admin: 12/31/16 09:31 Dose: 10 units Insulin Human Regular (Humulin R) 0 units SC ACCU-CHECK [facility] Last Admin: 12/31/16 12:03 Dose: 8 units Metformin HCl (Glucophage) 500 mg PO BID [facility] Last Admin: 12/31/16 09:30 Dose: 500 mg Pravastatin Sodium (Pravachol) 20 mg PO HS [facility] Last Admin: 12/30/16 22:58 Dose: 20 mg Silver Sulfadiazine (Silvadene 1% 20 Gm) 20 ea TOP DAILY@1700 [facility] Last Admin: 12/29/16 17:08 Dose: Not Given Sitagliptin Phosphate (Januvia) 100 mg PO DAILY [facility] Last Admin: 12/31/16 09:31 Dose: 100 mg Valsartan (Diovan) 320 mg PO DAILY [facility] Last Admin: 12/31/16 09:30 Dose: 320 mg - Labs Labs: 12/31/16 09:20 12/31/16 09:20 PT 11.2 SECONDS (9.6-11.2) 12/26/16 04:26 INR 1.08 (0.92-1.08) 12/26/16 04:26 APTT 38.3 SECONDS (23.3-32.5) H 12/26/16 04:26 - Constitutional Appears: Non-toxic, No Acute Distress - Head Exam Head Exam: NORMAL INSPECTION - Eye Exam Eye Exam: Normal appearance - ENT Exam ENT Exam: Mucous Membranes Moist - Neck Exam Neck Exam: Normal Inspection - Respiratory Exam Respiratory Exam: Clear to Ausculation Bilateral - Cardiovascular Exam Cardiovascular Exam: REGULAR RHYTHM - GI/Abdominal Exam GI & Abdominal Exam: Soft - Extremities Exam Additional comments: right LE: dressing right foot CDI motor/sensation grossly intact no erythema, no induration - Neurological Exam Neurological Exam: Alert, Oriented x3 - Skin Skin Exam: Dry, Warm Assessment and Plan (1) Diabetic ulcer of right foot Assessment & Plan: -IV ertapenem -PICC in place, 6 weeks IV abx -blood cx NGTD -wound cx: S. aureus, proteus mirabalis, acinetobacter baumannii -ID on board, appreciate input -podiatry on board, appreciate input. no intervention for now -MRI right foot, not able to complete d/t pacemaker -bone scan: cellulitis, no OM Status: Acute (2) Cellulitis Assessment & Plan: -IV ertapenem -PICC in place, 6 weeks IV abx -blood cx NGTD -wound cx: S. aureus, proteus mirabalis, acinetobacter baumannii -ID on board, appreciate input -podiatry on board, appreciate input. no intervention for now -MRI right foot, not able to complete d/t pacemaker -bone scan: cellulitis, no OM Status: Acute (3) Atrial fibrillation Assessment & Plan: -monitor -no home meds for rate control Status: Chronic (4) Diabetes mellitus type 2, uncontrolled Assessment & Plan: -c/w home meds -accuchecks -SSI Status: Chronic (5) HTN (hypertension) Assessment & Plan: -c/w home meds Status: Chronic (6) PAD (peripheral artery disease) Assessment & Plan: -c/w home meds Status: Chronic (7) HLD (hyperlipidemia) Assessment & Plan: -c/w home meds Status: Chronic (8) DVT prophylaxis Assessment & Plan: -lovenox Status: Acute
--- NOTE | 2016-12-31 13:57 | CP.PCM.PN ---
Subjective - Date & Time of Evaluation Date of Evaluation: 12/31/16 Time of Evaluation: 09:00 - Subjective Subjective: feels well alert NAD Objective - Vital Signs/Intake and Output Vital Signs (last 24 hours): Temp Pulse Resp BP Pulse Ox 97.9 F 77 20 148/68 99 12/31/16 08:33 12/31/16 09:32 12/31/16 08:33 12/31/16 09:32 12/31/16 08:33 - Medications Medications: Current Medications Acetaminophen (Tylenol 325mg Tab) 650 mg PO Q4 PRN PRN Reason: Fever >100.4 F Last Admin: 12/25/16 17:14 Dose: 650 mg Acetaminophen (Tylenol 325mg Tab) 650 mg PO QID PRN PRN Reason: Pain, moderate (4-7) Last Admin: 12/29/16 17:10 Dose: 650 mg Amlodipine Besylate (Norvasc) 10 mg PO DAILY [facility] Last Admin: 12/31/16 09:32 Dose: 10 mg Aspirin (Aspirin Chewable) 81 mg PO DAILY [facility] Last Admin: 12/31/16 09:30 Dose: 81 mg Clopidogrel Bisulfate (Plavix) 75 mg PO DAILY [facility] Last Admin: 12/31/16 09:33 Dose: 75 mg Dextrose (Dextrose 50% Inj) 0 ml IV STAT PRN; Protocol PRN Reason: Hyglycemia Protocol Dextrose (Glutose 15) 0 gm PO ONCE PRN; Protocol PRN Reason: Hypoglycemia Protocol Enoxaparin Sodium (Lovenox) 40 mg SC DAILY [facility] PRN Reason: Protocol Last Admin: 12/27/16 08:23 Dose: 40 mg Hydrochlorothiazide (Hydrodiuril) 25 mg PO DAILY [facility] Last Admin: 12/31/16 09:31 Dose: 25 mg Ertapenem 1 gm/ Sodium (Chloride) 100 mls @ 100 mls/hr IVPB DAILY@1700 [facility] Last Admin: 12/30/16 19:00 Dose: Not Given Insulin Detemir (Levemir) 10 units SC DAILY [facility] Last Admin: 12/31/16 09:31 Dose: 10 units Insulin Human Regular (Humulin R) 0 units SC ACCU-CHECK [facility] Last Admin: 12/31/16 12:03 Dose: 8 units Metformin HCl (Glucophage) 500 mg PO BID [facility] Last Admin: 12/31/16 09:30 Dose: 500 mg Pravastatin Sodium (Pravachol) 20 mg PO HS [facility] Last Admin: 12/30/16 22:58 Dose: 20 mg Silver Sulfadiazine (Silvadene 1% 20 Gm) 20 ea TOP DAILY@1700 [facility] Last Admin: 12/29/16 17:08 Dose: Not Given Sitagliptin Phosphate (Januvia) 100 mg PO DAILY [facility] Last Admin: 12/31/16 09:31 Dose: 100 mg Valsartan (Diovan) 320 mg PO DAILY [facility] Last Admin: 12/31/16 09:30 Dose: 320 mg - Labs Labs: 12/31/16 09:20 12/31/16 09:20 PT 11.2 SECONDS (9.6-11.2) 12/26/16 04:26 INR 1.08 (0.92-1.08) 12/26/16 04:26 APTT 38.3 SECONDS (23.3-32.5) H 12/26/16 04:26 - Constitutional Appears: Non-toxic, Chronically Ill - Head Exam Head Exam: NORMOCEPHALIC - Eye Exam Eye Exam: PERRL. absent: Scleral icterus Pupil Exam: NORMAL ACCOMODATION - ENT Exam ENT Exam: Mucous Membranes Dry - Neck Exam Neck Exam: absent: Lymphadenopathy - Respiratory Exam Respiratory Exam: Decreased Breath Sounds, Rhonchi - Cardiovascular Exam Cardiovascular Exam: REGULAR RHYTHM, +S1, +S2 - GI/Abdominal Exam GI & Abdominal Exam: Distended, Soft. absent: Tenderness - Rectal Exam Rectal Exam: Deferred - Exam Exam: NORMAL INSPECTION - Extremities Exam Extremities Exam: Pedal Edema, Tenderness Additional comments: left bka - Back Exam Back Exam: absent: CVA tenderness (L), CVA tenderness (R) - Neurological Exam Neurological Exam: Alert, Awake, Oriented x3 - Psychiatric Exam Psychiatric exam: Normal Mood Assessment and Plan (1) Cellulitis Status: Acute (2) Diabetic ulcer of right foot Status: Acute (3) 2Nd degree AV block Status: Acute (4) Altered mental status Status: Acute (5) Atrial fibrillation Status: Chronic (6) Cellulitis Status: Acute (7) Cellulitis of right leg Status: Acute (8) Chronic renal insufficiency, stage II (mild) Status: Acute (9) Diabetes mellitus type 2, uncontrolled Status: Chronic (10) HTN (hypertension) Status: Chronic (11) PAD (peripheral artery disease) Status: Chronic (12) Type 2 diabetes mellitus Status: Acute - Assessment and Plan (Free Text) Assessment: for d/c home on ertapenem
--- NOTE | 2016-12-31 14:02 | CP.PCM.DIS ---
Provider - Provider Date of Admission: 12/25/16 01:24 Attending physician: Jos Palencia MD Time Spent in preparation of Discharge (in minutes): 20 Diagnosis - Discharge Diagnosis (1) Diabetic ulcer of right foot Status: Acute (2) Cellulitis Status: Acute (3) Atrial fibrillation Status: Chronic (4) Diabetes mellitus type 2, uncontrolled Status: Chronic (5) HTN (hypertension) Status: Chronic (6) PAD (peripheral artery disease) Status: Chronic (7) HLD (hyperlipidemia) Status: Chronic (8) DVT prophylaxis Status: Acute Hospital Course - Lab Results Lab Results: Micro Results 12/25/16 10:24 Blood-Venous Blood Culture - Final NO GROWTH AFTER 5 DAYS 12/25/16 10:24 Blood-Venous Gram Stain - Final TEST NOT PERFORMED 12/25/16 11:00 Foot - Right Gram Stain - Final 12/25/16 11:00 Foot - Right Wound Culture - Final Acinetobacter Baumannii Proteus Mirabilis Staphylococcus Aureus 12/25/16 12:35 Foot - Right Gram Stain - Final 12/25/16 12:35 Foot - Right Wound Culture - Final Acinetobacter Baumannii Proteus Mirabilis Staphylococcus Aureus Most Recent Lab Values WBC 9.3 K/uL (4.8-10.8) 12/31/16 09:20 RBC 4.13 Mil/uL (4.40-5.90) L 12/31/16 09:20 Hgb 12.4 g/dL (12.0-18.0) 12/31/16 09:20 Hct 37.9 % (35.0-51.0) 12/31/16 09:20 MCV 91.8 fl (80.0-94.0) 12/31/16 09:20 MCH 29.9 pg (27.0-31.0) 12/31/16 09:20 MCHC 32.6 g/dL (33.0-37.0) L 12/31/16 09:20 RDW 13.0 % (11.5-14.5) 12/31/16 09:20 Plt Count 255 K/uL (130-400) 12/31/16 09:20 MPV 9.7 fl (7.2-11.7) 12/27/16 06:00 Neut % (Auto) 78.8 % (50.0-75.0) H 12/27/16 06:00 Lymph % (Auto) 10.2 % (20.0-40.0) L 12/27/16 06:00 Harding % (Auto) 9.1 % (0.0-10.0) 12/27/16 06:00 Eos % (Auto) 1.3 % (0.0-4.0) 12/27/16 06:00 Baso % (Auto) 0.6 % (0.0-2.0) 12/27/16 06:00 Neut # 10.5 K/uL (1.8-7.0) H 12/27/16 06:00 Lymph # 1.4 K/uL (1.0-4.3) 12/27/16 06:00 Harding # 1.2 K/uL (0.0-0.8) H 12/27/16 06:00 Eos # 0.2 K/uL (0.0-0.7) 12/27/16 06:00 Baso # 0.1 K/uL (0.0-0.2) 12/27/16 06:00 ESR 70 mm/hr (0-20) H 12/27/16 06:00 PT 11.2 SECONDS (9.6-11.2) 12/26/16 04:26 INR 1.08 (0.92-1.08) 12/26/16 04:26 APTT 38.3 SECONDS (23.3-32.5) H 12/26/16 04:26 Sodium 138 mmol/l (132-148) 12/31/16 09:20 Potassium 4.6 MMOL/L (3.6-5.0) 12/31/16 09:20 Chloride 97 mmol/L (98-107) L 12/31/16 09:20 Carbon Dioxide 30 mmol/L (22-30) 12/31/16 09:20 Anion Gap 16 (10-20) 12/31/16 09:20 BUN 39 mg/dl (9-20) H 12/31/16 09:20 Creatinine 1.5 mg/dL (0.8-1.5) 12/31/16 09:20 Est GFR ( Amer) 54 12/31/16 09:20 Est GFR (Non-Af Amer) 45 12/31/16 09:20 POC Glucose (mg/dL) 160 mg/dL (65-110) H 12/31/16 06:15 Random Glucose 275 mg/dL (75-110) H 12/31/16 09:20 Lactic Acid 1.3 MMOL/L (0.7-2.1) 12/25/16 17:20 Calcium 8.9 mg/dL (8.4-10.2) 12/31/16 09:20 Total Bilirubin 1.0 mg/dl (0.2-1.3) 12/27/16 06:00 AST 42 U/L (17-59) 12/27/16 06:00 ALT 35 U/L (21-72) 12/27/16 06:00 Alkaline Phosphatase 138 U/L (38-126) H D 12/27/16 06:00 C-React Prot High Sens > 15.00 mg/L (1.00-3.00) H 12/27/16 06:00 Total Protein 8.1 G/DL (6.3-8.2) 12/27/16 06:00 Albumin 3.9 g/dL (3.5-5.0) 12/27/16 06:00 Globulin 4.2 gm/dL (2.2-3.9) H 12/27/16 06:00 Albumin/Globulin Ratio 0.9 (1.0-2.1) L 12/27/16 06:00 Vancomycin Peak 18.4 ug/mL (30.0-40.0) L 12/26/16 04:26 Vancomycin Trough 8.7 ug/mL (5.0-10.0) 12/27/16 00:45 - Hospital Course Hospital Course: 81 y/o male with PVD, left BKA and right lower leg stent , DM 2 admitted for cellulitis of the right leg. Pt started on vancomycin and zosyn for abx coverage. ID Dr. Kruse c/s with recommendation for IV ertapenem x6 weeks upon d /c and PICC line placed for usp IV abx. Blood cx showed no growth. Wound cx showed S. aureus, proteus mirabalis, acinetobacter baumannii. Xray right foot showed small area of lucency and erosive change in the distal phalanx of the right 5th toe. Possible small overlying soft tissue ulcer. Podiatry Dr. Brito c/s with recommendation of no intervention for now, FU in 1 week s/p angioplasty to assess if further surgical intervention required. Arterial duplex showed Occlusion of right Femoral/popliteal bypass, proximal [employer]GRAMMER & BRET will full length extensive calcifications. Vascular c/s Dr. Smith and performed angioplasty of the right anterior tibial artery which was occluded 100 %. MRI right foot was not able to be completed d/t pt having pacemaker. Bone scan showed cellulitis, no OM and IV abx to be continued. Pt d/c to [facility]. Discharge Exam - Head Exam Head Exam: NORMAL INSPECTION Discharge Plan - Discharge Medications Prescriptions: Ertapenem [Invanz] 1 gm IV DAILY #42 pds - Follow Up Plan Condition: FAIR Disposition: TRANSF TO SNF Instructions: Insulin Human Regular (By injection), Insulin Detemir (By injection), Peripherally Inserted Central Catheters and Midline Catheters (DC), Cellulitis (DC), Cellulitis (GEN), Peripheral Artery Disease (DC), Peripheral Artery Disease (GEN), Hypertension (DC), Hypertension (GEN)
[2016-12-31] MEDS: Silver Sulfadiazine 1% Cream (20 gm) TOP SCH (16:28)
== END 2016-12-31 18:19 | DRG 623 ==
LOC: EDBD → H.ER 23:19 → H.MEDSURG1 12-25 01:24
PROVIDERS: ADMIT Family Medicine; ATTEND Family Medicine
PROC: 0HBMXZZ Excision of Right Foot Skin, External Approach (ICD-10-PCS; principal; 2016-12-25)
PROC: 02HV33Z Insertion of Infusion Device into Superior Vena Cava, Percutaneous Approach (ICD-10-PCS; 2016-12-30)
PROC: B518ZZA Fluoroscopy of Superior Vena Cava, Guidance (ICD-10-PCS; 2016-12-30)
PROC: 3E04329 Introduction of Other Anti-infective into Central Vein, Percutaneous Approach (ICD-10-PCS; 2016-12-30)
DX: E11.628 Type 2 diabetes mellitus with other skin complications (principal); L03.115 Cellulitis of right lower limb; E11.52 Type 2 diabetes mellitus with diabetic peripheral angiopathy with gangrene; E11.621 Type 2 diabetes mellitus with foot ulcer; L97.519 Non-pressure chronic ulcer of other part of right foot with unspecified severity; I44.1 Atrioventricular block, second degree; I48.2 Chronic atrial fibrillation; E11.65 Type 2 diabetes mellitus with hyperglycemia; B96.4 Proteus (mirabilis) (morganii) as the cause of diseases classified elsewhere; B95.61 Methicillin susceptible Staphylococcus aureus infection as the cause of diseases classified elsewhere; L91.8 Other hypertrophic disorders of the skin; I25.10 Atherosclerotic heart disease of native coronary artery without angina pectoris; I12.9 Hypertensive chronic kidney disease with stage 1 through stage 4 chronic kidney disease, or unspecified chronic kidney disease; N18.2 Chronic kidney disease, stage 2 (mild); E78.5 Hyperlipidemia, unspecified; E78.00 Pure hypercholesterolemia, unspecified; Z95.1 Presence of aortocoronary bypass graft; Z95.0 Presence of cardiac pacemaker; Z79.4 Long term (current) use of insulin; Z79.01 Long term (current) use of anticoagulants; Z79.02 Long term (current) use of antithrombotics/antiplatelets; Z89.512 Acquired absence of left leg below knee; Z87.891 Personal history of nicotine dependence; Z91.013 Allergy to seafood

== ENCOUNTER 2017-01-12 09:17 | Day surgery (SDC) | payer MEDICARE, OTHER ==
[2017-01-12 09:31] VITALS: BMI 26.1
--- NOTE | 2017-01-12 09:31 | CP.PCM.PN ---
Subjective - Date & Time of Evaluation Date of Evaluation: 01/12/17 Time of Evaluation: 09:29 - Subjective Subjective: 81 year old male was seen resting comfortably in SDS regarding right 5th digit amputation scheduled today with Dr. rBito. Patient states that he has stopped his plavix and aspirin one week ago. NPO status confirmed. Patient denies any n/v/f/c/sob/cp. Objective - Constitutional Appears: Non-toxic, No Acute Distress - Extremities Exam Additional comments: Lower extremity focused exam: Left Leg:BKA Right Foot: Vasc: DP and PT pulses non-palpable. CFT < 4 seconds for digits 1-4, CFT delayed to 5th digit. Skin temperature reduced from proximal to distal, though markedly improved to forefoot. +1 pitting edema noted to the foot and leg. Neuro: Gross sensation diminished Derm:Superficial ulceration noted to the medial aspect of the hallux measuring approximately 0.5 cm x 0.5 cm x 0.2 cm, base is granular. No malodor, no drainage, no probe to bone noted. 5th digit is dry, darkly discolored and the 4th webspace is macerated. Ortho: No pain on palpation to right 5th digit or hallux. 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 Plan: Pt was seen and examined in SDS Pt NPO status was confirmed All Pre-op testing and clearance was in the chart Pt has exhausted all conservative treatment at this time and is opting for surgical intervention Pt was explained procedure and post-operative course All pt's questions were answered to satisfaction No guarantees were made Pt understands all risks, benefits and complications of procedure Pt will follow-up with Dr. Brito
[2017-01-12] MEDS ORDERED: Lidocaine 1% Inj (20ml) IJ ONE ×2 (09:33→10:45)
[2017-01-12] MEDS ORDERED: Bupivacaine 0.5% Inj(30mL) IJ ONE (09:33)
--- NOTE | 2017-01-12 09:33 | CP.SDSHP ---
Same Day Surgery H & P - History Proposed Procedure: right 5th digit amputation Pre-Op Diagnosis: right 5th digit gangrene - Previous Medical/Surgical History Cardiac: PVD Endocrine/Metabolic: Diabetes Pain: 0. No Pain - Allergies Allergies: Allergies shrimp Allergy (Verified 01/05/17 10:40) RASH Seafood Allergy (Uncoded 01/05/17 10:40) SWELLING - Physical Exam Mental Status: Alert & Oriented x3 Neuro: WNL Heart: WNL Lungs: WNL GI: WNL - {Optional Preform as Required} Integument: Other (dry gangrene to right 5th digit) - Impression Impression: Pt was seen and examined in SDS. Pt NPO status was confirmed. All Pre-op testing and clearance was in the chart. Pt has exhausted all conservative treatment at this time and is opting for surgical intervention. Pt was explained procedure and post-operative course. All pt's questions were answered to satisfaction. No guarantees were made. Pt understands all risks, benefits and complications of procedure. Pt will follow-up with Dr. Brito Pt. Evaluated Today:Candidate for Anesthesia & Procedure: Yes - Date & Time Date: 01/12/17 Time: 09:33 Short Stay Discharge - Short Stay Discharge Admitting Diagnosis/Reason for Visit: M86.071 Disposition: HOME/ ROUTINE Referrals: Jos Palencia MD [Primary Care Provider] - Florencio Brito MD [Staff Provider] - Instructions: Oxycodone/Acetaminophen (By mouth) Additional Instructions (Diet, Activity): Patient in good condition for discharge home. Pt to resume medications per medical reconciliation. Resume regular diet. Please keep dressing clean, dry, & intact to surgical site, use plastic bag over bandage for showering, wear post op shoe at all times when ambulating, call office if you see signs of infection (redness, swelling, malodor), please make an appointment to see Dr. Brito in office within 1 week for post-op check. Dressing to be changed at alf on TuesdayJanuary 14 and TuesdayJanuary 17 with dry sterile dressing, patient to follow up with Dr. Brito in office next TuesdayJanuary 19 or January 20 Patient to resume plavix tomorrow, December Progress Note/Discharge Note with Instructions: - Patient evaluated bedside in recovery s/p surgical procedure. - After surgical procedure patient in NAD - (+) Void, (+) Appetite - Capillary refill time <3s and NVSI intact. - Patient denies complaints at this time - Post operative instructions and plan of care explained to patient at length. - Pt. acknowledges understanding. - Patient stable for DC per podiatric surgery
[2017-01-12] MEDS ORDERED: Dexamethasone 4 mg/1 ml ONE (09:48)
[2017-01-12] MEDS ORDERED: Lidocaine 1% Inj (20ml) ONE (09:48)
[2017-01-12] MEDS ORDERED: Bupivacaine 0.5% Inj(30mL) ONE (09:49)
[2017-01-12] MEDS ORDERED: Lactated Ringer's 1,000 ML IV ONE (10:30)
[2017-01-12] MEDS ORDERED: Propofol 10 mg/ml Inj (20 ML) ONE (10:31)
[2017-01-12] MEDS ORDERED: Midazolam 2 MG/2 ML VIAL ONE (10:32)
[2017-01-12] MEDS ORDERED: Bupivacaine 0.5% 50 ML IJ ONE (10:45)
--- NOTE | 2017-01-12 11:23 | PCM.SURG1 ---
Surgeon's Initial Post Op Note - Surgeon's Notes Surgeon: Dr. Brito Corrections Caseworker: Dr. Baxter PGY-1, Dr. Howard PGY-2 Type of Anesthesia: IV Sedation, Local Anesthesia Administered By: Dr. Noble Pre-Operative Diagnosis: right foot 5th digit gangrene Operative Findings: see dictation. 3-0 prolene. 16mL 1:1 1% lidocaine plain, 0.5%marcaine plain Post-Operative Diagnosis: same as preop Operation Performed: right foot 5th digit amputation Specimen/Specimens Removed: bone and soft tissue Estimated Blood Loss: EBL {In ML}: 5 Blood Products Given: N/A Drains Used: No Drains Post-Op Condition: Good Date of Surgery/Procedure: 01/12/17 Time of Surgery/Procedure: 10:45
[2017-01-12] MEDS ORDERED: Oxycodone/Acetaminophen 5/325 mg Tab PO PRN ×2 (11:24)
[2017-01-12] MEDS ORDERED: Esmolol 100 mg/10ml Inj IV ONE (11:34)
[2017-01-12] MEDS ORDERED: Lactated Ringer's 1,000 ML IV SCH (11:42)
[2017-01-12 16:10] VITALS: BP 142/67; PULSE 80; RESP 18; TEMP 98.1; O2SAT 96
--- NOTE | 2017-01-12 17:23 | RAD ---
PROCEDURE: Right Foot Radiographs. HISTORY: s/p right foot surgery COMPARISON: Preoperative examination 12/25/2016. FINDINGS: BONES: Status post resection of the distal 5th metatarsal and 5th digit. Expected postoperative findings. JOINTS: Normal. SOFT TISSUES: Soft tissue swelling surgical site. OTHER FINDINGS: None. IMPRESSION: Satisfactory postoperative status.
--- NOTE | 2017-01-12 21:07 | OP ---
PROCEDURE DATE: 01/12/2017 SURGEON: Dr. Brito. CHAMBER MAGISTRATE: Dr. Lugo, PGY-1, Dr. Howard____ , PGY-2. WASTE SPECIALIST: Dr. Noble. ANESTHESIA: IV sedation with local. PREOPERATIVE DIAGNOSIS: Right foot fifth digit gangrene. POSTOPERATIVE DIAGNOSIS: Right foot fifth digit gangrene. PROCEDURE PERFORMED: Right foot fifth digit amputation with partial metatarsal resection. INDICATIONS: The patient is an 81-year-old male with the above diagnoses. The patient has exhausted all conservative treatment at this time and now requires surgical intervention. The patient signed the consent after careful explanation of risks, benefits and complications, and alternatives for surgical procedure. No guarantees were given nor implied. PREPARATION: The patient was brought into the operating room and placed on the operating room table in a supine position. A timeout was performed for identification of the correct patient and procedure. The patient received a total of 16 mL of a 1:1 mixture of 1% lidocaine plain and 0.5% Marcaine plain in a local block type fashion to the right foot. Once local anesthesia was achieved, the right foot was then prepped and draped in normal sterile manner and the procedure began. DESCRIPTION OF PROCEDURE: Attention was directed to the patient's right foot and with the use of a 15 blade, a circumferential incision was made around the fifth digit extending proximally along the lateral aspect of the fifth metatarsal to the level of the metatarsal neck. The incision was deepened through subcutaneous tissue using blunt and sharp dissection extending down to bone. All necrotic and nonviable tissue was gently debrided using a #15 blade and pickups. Using a bone clamp to stabilize the fifth digit, the digit was then disarticulated at the level of the fifth metatarsophalangeal joint. This was then passed off of the operative field and sent to pathology. Next, all the soft tissue structures were freed from the attachments at the metatarsal head. A sagittal saw was then used to resect the distal aspect of the fifth metatarsal at the level of the metatarsal neck from distal medial to proximal lateral. This bone was then passed off the operative field and sent to pathology. The amputation site was then flushed with copious amounts of sterile normal saline. Next, the wound was then packed with plain half inch packing and the skin edges were then reapproximated with 3-0 Prolene in a simple suture technique. The surgical site was then dressed with a wet to dry 4 x 4 gauze, Ilene, Kerlix and Hemant. POSTOPERATIVE CONDITION: The patient tolerated the anesthesia and procedure well and was escorted to recovery room with vital signs stable and neurovascular status intact to the right foot. The patient is to remain partial weightbearing to the heel of the right lower extremity and will follow up with Dr. Brito as an outpatient upon discharge. URVASHI LUGO DPM Florencio Brito DPM cc: [id number] TT: 01/12/2017 21:07:13 jn MTDD
== END 2017-01-12 15:15 | disposition designated cancer center or children's hospital (05) ==
LOC: H.OPSURG 09:17
PROVIDERS: ATTEND Podiatrist
DX: M86.071 Acute hematogenous osteomyelitis, right ankle and foot (principal); E78.5 Hyperlipidemia, unspecified; E11.51 Type 2 diabetes mellitus with diabetic peripheral angiopathy without gangrene
CPT/HCPCS: 28810; 36415; 73620; 82948; 85610; 85730; 88307; A4310; C1751; J2001; J2250; J2704; J3010; J7030; J7120

== ENCOUNTER 2017-04-26 10:23 | Inpatient (IN) | payer MEDICARE, OTHER ==
[2017-04-26 10:27] VITALS: BMI 26.6
--- NOTE | 2017-04-26 11:08 | ED PDOC ---
Syncope/Near Syncope/Dizziness Time Seen by Provider: 04/26/17 10:31 Chief Complaint (Nursing): Dizziness/Lightheaded History Per: Patient History/Exam Limitations: no limitations Onset/Duration Of Symptoms: Days (1), Gradual Current Symptoms Are (Timing): Still Present Associated Symptoms Preceding Syncopal Episode: Lightheadedness, Worse With Standing Seizure Or Post-ictal Symptoms: None Possible Causative Factor(s): Lightheaded W/Standing Fall Associated With With Symptoms: No Severity: Moderate Additional History Per: Patient, EMS Additional Complaint(s): pt c/o feeling weak and dizzy while at an adult day care this a.m., states + lh , no cp or sob. mild rangel but no n/t/w. no bv or dv. no prev sx. s/p distant left leg aka. Past Medical History Reviewed: Historical Data, Nursing Documentation, Vital Signs Vital Signs: Last Vital Signs Temp 97.5 F L 04/26/17 10:27 Pulse 62 04/26/17 10:27 Resp 18 04/26/17 10:27 BP 84/44 L 04/26/17 10:27 Pulse Ox 100 04/26/17 10:27 - Medical History PMH: Atrial Fibrillation, CAD, Diabetes, HTN, Hypercholesterolemia Denies: HIV, Chronic Kidney Disease - Surgical History Surgical History: CABG, Pacemaker - Family History Family History: States: Unknown Family Hx - Living Arrangements Living Arrangements: With Family - Social History Current smoker - smoking cessation education provided: No - Home Medications Home Medications: Ambulatory Orders Medication Instructions Recorded Aspirin [Ecotrin] 81 mg PO DAILY 04/26/17 Insulin Glargine, Recombina 18 unit SC DAILY 04/26/17 [Lantus] Insulin Lispro [humALOG] 10 unit SC ACBD 04/26/17 Pravastatin Sodium [Pravachol] 20 mg PO HS 04/26/17 Sulfamethoxazole/Trimethoprim 1 tab PO BID 04/26/17 [Bactrim Ds Tablet] Valsartan/Hydrochlorothiazide 1 tab PO DAILY 04/26/17 [Diovan Hct 320-25 mg Tablet] amLODIPine [Norvasc] 10 mg PO DAILY 04/26/17 - Allergies Allergies/Adverse Reactions: Allergies Allergy/AdvReac Type Severity Reaction Status Date / Time shrimp Allergy RASH Verified 04/26/17 10:37 Seafood Allergy SWELLING Uncoded 01/05/17 10:40 Review of Systems ROS Statement: Except As Marked, All Systems Reviewed And Found Negative Constitutional: Negative for: Fever, Chills Cardiovascular: Positive for: Light Headedness. Negative for: Chest Pain, Palpitations, Edema Respiratory: Positive for: Cough. Negative for: Shortness of Breath, Sputum, Wheezing Gastrointestinal: Negative for: Nausea, Vomiting, Abdominal Pain, Diarrhea Genitourinary Male: Negative for: Dysuria Musculoskeletal: Negative for: Neck Pain Skin: Negative for: Rash Neurological: Positive for: Headache. Negative for: Weakness, Numbness, Incoordination, Altered Mental Status Physical Exam - Reviewed Nursing Documentation Reviewed: Yes Vital Signs Reviewed: Yes - Physical Exam Appears: Positive for: Uncomfortable Head Exam: Positive for: ATRAUMATIC, NORMAL INSPECTION, NORMOCEPHALIC Skin: Positive for: Normal Color, Warm, Dry Eye Exam: Positive for: Normal appearance, EOMI. Negative for: PERRL (pinpoint bl), Nystagmus, Periorbital swelling, Periorbital tenderness, Conjunctival injection, Scleral icterus ENT: Positive for: Pharynx Is (dry mmm). Negative for: Pharyngeal Erythema, Tonsillar Exudate Neck: Positive for: Normal, Painless ROM, Supple. Negative for: Decreased ROM, Limited ROM, Trachea Midline Cardiovascular/Chest: Positive for: Regular Rate, Rhythm, Chest Non Tender. Negative for: Edema, Gallop, Murmur, Bradycardia, Tachycardia, Irregularly Irregular Respiratory: Positive for: Normal Breath Sounds. Negative for: Decreased Breath Sounds, Accessory Muscle Use, Crackles, Rales, Rhonchi, Stridor, Wheezing , Respiratory Distress Pulses-Radial (L): 2+ Pulses-Radial (R): 2+ Gastrointestinal/Abdominal: Positive for: Normal Exam, Bowel Sounds, Soft. Negative for: Tenderness Back: Positive for: Normal Inspection. Negative for: L CVA Tenderness, R CVA Tenderness Extremity: Positive for: Normal ROM, Other (lfet leg aka noted). 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 Negative for: Motor/Sensory Deficits, Aphasia, Facial Droop - Laboratory Results Result Diagrams: 04/26/17 11:27 04/26/17 12:26 - ECG ECG: Positive for: Interpreted By Me Interpretation Of Abn EKG: rate of 64, paced rhythym no st changes O2 Sat by Pulse Oximetry: 100 Pulse Ox Interpretation: Normal - Radiology X-Ray: Interpreted by Me X-Ray Interpretation: No Acute Disease (pacer wires intact clear lungs) - Progress ED Course And Treament: sx markedly after iv fluids, bp now 98 systolic likely dehydration and arf will admit to tele per Dr roy. Re-evaluation Time: 13:00 Condition: Improved Disposition - Clinical Impression Clinical Impression: Hypotension, Acute renal failure - Patient ED Disposition Is Patient to be Admitted: Yes Counseled Patient/Family Regarding: Studies Performed, Diagnosis - Disposition Disposition Time: 13:00 Condition: STABLE - Pt Status Changed To: Hospital Disposition Of: Inpatient - Admit Certification Admit to Inpatient:: After my assessment, the patient will require hospitalization for at least two midnights. This is because of the severity of symptoms shown, intensity of services needed, and/or the medical risk in this patient being treated as an outpatient. - POA Present On Arrival: None
[2017-04-26] MEDS ORDERED: Sodium Chloride 0.9% 1,000 ML IV ONE ×3 (11:24→13:10)
[2017-04-26] MEDS ORDERED: Albuterol-Ipratrop 3 mg / 0.5 (3 ml) UD INH STA (11:24)
[2017-04-26] MEDS ORDERED: Albuterol-Ipratrop 3 mg / 0.5 (3 ml) UD ONE (11:29)
[2017-04-26 11:32] LABS: VENOUS BLOOD GAS BASE EXCESS -5.2 mmol/L (0.0-2.0); VENOUS BLOOD GAS PCO2 49 mmHg (40-60); VENOUS BLOOD PH 7.26 (7.32-7.43)
[2017-04-26 11:34] LABS: BASO # 0.1 K/uL (0.0-0.2); BASO % 0.5 % (0.0-2.0); EOS # 0.1 K/uL (0.0-0.7); EOS % 0.6 % (0.0-4.0); HEMATOCRIT 35.2 % (35.0-51.0); LYMPH # 0.7 K/uL (1.0-4.3); LYMPH % 5.4 % (20.0-40.0); MEAN CORPUSCULAR HEMOGLOBIN 29.7 pg (27.0-31.0); MEAN CORPUSCULAR HGB CONC 32.3 g/dL (33.0-37.0); MEAN PLATELET VOLUME 11.8 fl (7.2-11.7); MONO # 0.9 K/uL (0.0-0.8); MONO % 6.6 % (0.0-10.0); NEUT # 11.7 K/uL (1.8-7.0); NEUT % 86.9 % (50.0-75.0); PLATELET COUNT 205 K/uL (130-400); RED CELL DISTRIBUTION WIDTH 13.9 % (11.5-14.5); WHITE BLOOD COUNT 13.5 K/uL (4.8-10.8)
[2017-04-26 11:44] LABS: PHOSPHOROUS 3.7 mg/dl (2.5-4.5)
--- NOTE | 2017-04-26 11:52 | RAD ---
HISTORY: dizzy COMPARISON: 11/28/2015 FINDINGS: LUNGS: The lungs are clear. PLEURA: No significant pleural effusion identified, no pneumothorax apparent. CARDIOVASCULAR: Normal. OSSEOUS STRUCTURES: No significant abnormalities. VISUALIZED UPPER ABDOMEN: Normal. OTHER FINDINGS: None. IMPRESSION: No acute findings no.
[2017-04-26 11:56] LABS: PARTIAL THROMBOPLASTIN TIME 27.3 Seconds (25.6-37.1)
[2017-04-26 11:58] LABS: TROPONIN I 0.019 ng/mL (0.00-0.120)
[2017-04-26 12:18] LABS: BASOPHIL 1 % (0-2); EOSINOPHIL 1 % (0-7); MYELOCYTE 1 % (0-0); NEUTROPHIL 88 % (42-75); TOTAL CELLS COUNTED 100
[2017-04-26 12:19] LABS: LARGE PLATELETS PRESENT
[2017-04-26 12:37] LABS: ALB/GLOB RATIO 1.3 (1.0-2.1); BILIRUBIN,TOTAL 0.5 mg/dl (0.2-1.3); CALCIUM 9.1 mg/dL (8.4-10.2); MAGNESIUM 2.5 MG/DL (1.6-2.3); POTASSIUM 5.4 MMOL/L (3.6-5.0); TOTAL PROTEIN 6.9 G/DL (6.3-8.2)
[2017-04-26] MEDS ORDERED: Potassium Chloride 20 mEq ER Tab PO ONE (13:42)
--- NOTE | 2017-04-26 14:25 | CT ---
PROCEDURE: CT HEAD WITHOUT CONTRAST. HISTORY: dizzy COMPARISON: Head CT 03/25/2016 without contrast. TECHNIQUE: Axial computed tomography images were obtained through the head/brain without intravenous contrast. Radiation dose: Total exam DLP = 888 mGy-cm. This CT exam was performed using one or more of the following dose reduction techniques: Automated exposure control, adjustment of the mA and/or kV according to patient size, and/or use of iterative reconstruction technique. FINDINGS: HEMORRHAGE: No intracranial hemorrhage. BRAIN: Stable appearing age related neuro degenerative changes are appreciated once again with no mass effect or suspicious extra-axial collection appreciated. No cortical edema is identified throughout. The craniocervical junction remains unremarkable as well as the visualized midline brain anatomy. VENTRICLES: Unremarkable. No hydrocephalus. CALVARIUM: Unremarkable. PARANASAL SINUSES: Minimal mucosal inflammatory changes seen affecting multiple ethmoid air cells bilaterally. MASTOID AIR CELLS: Unremarkable as visualized. No inflammatory changes. OTHER FINDINGS: Right lamina papyracea deformity again identified. IMPRESSION: Stable age related neuro degenerative changes are reiterated without definitive CT acute pattern as discussed above. Follow-up CT or MRI are available if clinically warranted.
[2017-04-26 16:23] LABS: CALCIUM 7.6 mg/dL (8.4-10.2); MAGNESIUM 2.4 MG/DL (1.6-2.3)
[2017-04-26 16:25] LABS: POTASSIUM 5.1 MMOL/L (3.6-5.0)
[2017-04-26] MEDS ORDERED: Sodium Chloride 0.9% 1,000 ML IV SCH (16:45)
[2017-04-26] MEDS: Tmp-Smz 800 mg-160 mg DS Tab PO SCH (19:27)
[2017-04-26] MEDS ORDERED: Pneumococcal 23-Valent Vaccine IM ONE (20:00)
[2017-04-26] MEDS: Insulin Lispro (humaLOG) 100 Units/ml Inj SC SCH (22:15)
[2017-04-26] MEDS: Pravastatin Sodium 20 MG TAB PO SCH (22:16)
[2017-04-26] MEDS: Insulin Detemir 100 Units/ml Inj SC SCH (22:17)
[2017-04-27 01:44] LABS: RBC URINE 4 /hpf (0-3); URINE BILIRUBIN NEGATIVE (NEGATIVE); URINE BLOOD NEGATIVE (NEGATIVE); URINE COLOR YELLOW (YELLOW); URINE GLUCOSE (UA) 50 mg/dL (Normal); URINE KETONE NEGATIVE (NEGATIVE); URINE LEUKOCYTE ESTERASE SMALL Leu/uL (Negative); URINE PROTEIN NEGATIVE (NEGATIVE); URINE UROBILINOGEN 0.2-1.0 mg/dL (0.2-1.0); WBC URINE 6 /hpf (0-5)
[2017-04-27 05:30] LABS: HEMATOCRIT 34.2 % (35.0-51.0); MEAN CELL VOLUME 91.9 fl (80.0-94.0); MEAN CORPUSCULAR HEMOGLOBIN 30.1 pg (27.0-31.0); MEAN CORPUSCULAR HGB CONC 32.8 g/dL (33.0-37.0); RED CELL DISTRIBUTION WIDTH 14.2 % (11.5-14.5); WHITE BLOOD COUNT 10.1 K/uL (4.8-10.8)
[2017-04-27 05:34] LABS: BLOOD UREA NITROGEN 93 mg/dl (9-20); CALCIUM 8.2 mg/dL (8.4-10.2); CARBON DIOXIDE 17 mmol/L (22-30); CHLORIDE 106 mmol/L (98-107); GFR AFRICAN-AMERICAN 17; GLUCOSE,RANDOM 138 mg/dL (75-110); SODIUM 134 mmol/l (132-148)
[2017-04-27] MEDS ORDERED: Sodium Chloride 0.9% 1,000 ML IV SCH ×2 (06:56→11:28)
[2017-04-27] MEDS ORDERED: Insulin Lispro (humaLOG) 100 Units/ml Inj SC SCH (07:30)
[2017-04-27] MEDS: Insulin Lispro (humaLOG) 100 Units/ml Inj SC SCH ×4 (08:24→17:29)
[2017-04-27] MEDS: Enoxaparin 40 mg Syringe SC SCH (08:30)
[2017-04-27] MEDS: Tmp-Smz 800 mg-160 mg DS Tab PO SCH (08:31)
[2017-04-27] MEDS ORDERED: INSULIN GLARGINE SC SCH (09:00)
[2017-04-27] MEDS ORDERED: Patient's Own Med (Valsartan/Hydrochlorothiazide [Diovan Hct 320-25 Mg Tablet] 1 TAB) PO SCH (09:00)
--- NOTE | 2017-04-27 09:02 | CP.PCM.HP ---
History of Present Illness - History of Present Illness History of Present Illness: 81 year old male presented to [facility] after complaints of dizziness, found to be hypotensive with chest pain at his adult day care center. He was subsequently transferred here. He complains of mild headache and mild midline chest pain, that is persistent. Denies chest heaviness, dyspnea, reflux, nausea , vomiting, abdominal pain, diarrhea, pedal edema. Denies changes in appetite or PO intake. Unable to obtain further hx. He denies recent illness. Lives with his son, who has young children. PMH: HTN, DM, CAD, PAD, HLD Medications: reviewed Allergies: NKDA Surgical hx: pacemaker, left leg amputation Present on Admission - Present on Admission Any Indicators Present on Admission: No Past Patient History - Infectious Disease Hx of Infectious Diseases: None - Past Medical History & Family History Past Medical History?: Yes - Past Social History Smoking Status: Never Smoked - CARDIAC Hx Cardiac Disorders: Yes Hx Atrial Fibrillation: Yes Hx Hypercholesterolemia: Yes Hx Hypertension: Yes Hx Pacemaker: Yes (11/28/2015) - PULMONARY Hx Respiratory Disorders: No - NEUROLOGICAL Hx Neurological Disorder: No - HEENT Hx HEENT Problems: No - RENAL Hx Chronic Kidney Disease: Yes Hx Renal Failure: Yes - ENDOCRINE/METABOLIC Hx Endocrine Disorders: Yes Hx Diabetes Mellitus Type 2: Yes - HEMATOLOGICAL/ONCOLOGICAL Hx Blood Disorders: No Hx AIDS: No Hx Human Immunodeficiency Virus (HIV): No - INTEGUMENTARY Hx Dermatological Problems: Yes Hx Cellulitis: Yes - MUSCULOSKELETAL/RHEUMATOLOGICAL Hx Musculoskeletal Disorders: Yes Hx Falls: Yes (04/23/2017) Other/Comment: LEFT BKA - GASTROINTESTINAL Hx Gastrointestinal Disorders: No - GENITOURINARY/GYNECOLOGICAL Hx Genitourinary Disorders: No - PSYCHIATRIC Hx Psychophysiologic Disorder: No Hx Emotional Abuse: No Hx Physical Abuse: No Hx Substance Use: No - SURGICAL HISTORY Hx Surgeries: Yes Hx Coronary Artery Bypass Graft: Yes - ANESTHESIA Hx Anesthesia: Yes Hx Anesthesia Reactions: No Hx Malignant Hyperthermia: No Meds Allergies/Adverse Reactions: Allergies Allergy/AdvReac Type Severity Reaction Status Date / Time shrimp Allergy RASH Verified 04/26/17 10:37 Seafood Allergy SWELLING Uncoded 01/05/17 10:40 Physical Exam - Constitutional Appears: Well, No Acute Distress - Head Exam Head Exam: ATRAUMATIC, NORMAL INSPECTION, NORMOCEPHALIC - Eye Exam Eye Exam: Normal appearance - ENT Exam ENT Exam: Mucous Membranes Moist - Respiratory Exam Respiratory Exam: Clear to Auscultation Bilateral, NORMAL BREATHING PATTERN. absent: Chest Wall Tenderness, Decreased Breath Sounds, Rales, Rhonchi, Wheezes , Respiratory Distress - Cardiovascular Exam Cardiovascular Exam: +S1, +S2 - GI/Abdominal Exam GI & Abdominal Exam: Normal Bowel Sounds, Soft. absent: Tenderness - Extremities Exam Extremities exam: Negative for: pedal edema Additional comments: left aka - Neurological Exam Neurological exam: CN II-XII Intact - Psychiatric Exam Psychiatric exam: Normal Affect, Normal Mood - Skin Skin Exam: Dry, Intact Results - Vital Signs Recent Vital Signs: Last Vital Signs Temp 98.2 F 04/27/17 08:41 Pulse 64 04/27/17 08:41 Resp 20 04/27/17 08:41 BP 95/54 L 04/27/17 08:41 Pulse Ox 100 04/27/17 08:41 - Labs Result Diagrams: 04/27/17 05:00 04/27/17 05:00 Labs: Laboratory Results - last 24 hr 04/26/17 04/26/17 04/26/17 15:45 17:32 20:05 WBC RBC Hgb Hct MCV MCH MCHC RDW Plt Count Sodium 132 Potassium 5.1 H Chloride 105 Carbon Dioxide 16 L Anion Gap 16 BUN 94 H Creatinine 4.1 H Est GFR ( Amer) 17 Est GFR (Non-Af Amer) 14 POC Glucose (mg/dL) 204 H Random Glucose 179 H Calcium 7.6 L Magnesium 2.4 H Troponin I < 0.0120 Urine Color Urine Clarity Urine pH Ur Specific [place] Urine Protein Urine Glucose (UA) Urine Ketones Urine Blood Urine Nitrate Urine Bilirubin Urine Urobilinogen Ur Leukocyte Esterase Urine RBC (Auto) Urine Microscopic WBC Ur Squamous Epith Cells 04/26/17 04/27/17 04/27/17 21:58 00:50 05:00 WBC 10.1 RBC 3.72 L Hgb 11.2 L Hct 34.2 L MCV 91.9 MCH 30.1 MCHC 32.8 L RDW 14.2 Plt Count 201 Sodium Potassium Chloride Carbon Dioxide Anion Gap BUN Creatinine Est GFR ( Amer) Est GFR (Non-Af Amer) POC Glucose (mg/dL) 286 H Random Glucose Calcium Magnesium Troponin I Urine Color Yellow Urine Clarity Slighty-cloudy Urine pH 5.0 Ur Specific [place] 1.020 Urine Protein Negative Urine Glucose (UA) 50 Urine Ketones Negative Urine Blood Negative Urine Nitrate Negative Urine Bilirubin Negative Urine Urobilinogen 0.2-1.0 Ur Leukocyte Esterase Small Urine RBC (Auto) 4 H Urine Microscopic WBC 6 H Ur Squamous Epith Cells 1 04/27/17 04/27/17 05:00 05:19 WBC RBC Hgb Hct MCV MCH MCHC RDW Plt Count Sodium 134 Potassium 5.0 Chloride 106 Carbon Dioxide 17 L Anion Gap 16 BUN 93 H Creatinine 4.0 H Est GFR ( Amer) 17 Est GFR (Non-Af Amer) 14 POC Glucose (mg/dL) 145 H Random Glucose 138 H Calcium 8.2 L Magnesium Troponin I < 0.0120 Urine Color Urine Clarity Urine pH Ur Specific [place] Urine Protein Urine Glucose (UA) Urine Ketones Urine Blood Urine Nitrate Urine Bilirubin Urine Urobilinogen Ur Leukocyte Esterase Urine RBC (Auto) Urine Microscopic WBC Ur Squamous Epith Cells Assessment & Plan - Assessment and Plan (Free Text) Assessment: Patient seen and examined with attending. 81 year old male admitted due to hypotension and acute on chronic CKD of unclear etiology. # Acute renal failure # Hypotension # Dementia # IDDM -Nephro consult appreciated. Renal u/s, d/c bactrim, decrease IVF -decrease mealtime insulin to 5 units, continue with levemir 18units for now, monitor for hypoglycemia. -start aricept -continue to hold BP meds, pt still hypotensive -pt/ot eval
--- NOTE | 2017-04-27 11:20 | CP.PCM.CON ---
History of Present Illness - History of Present Illness History of Present Illness: 81 yo M w/ pmh of severe PAD s/p L BKA, s/p RLE angioplasty, DM, HTN, Afib and CHF w/ diastolic dysfunction presented to ED yesterday s/p multiple falls; found to have acute renal failure, nephrology being consulted for the same; History taken from patient and his daughter who is at bedside; she reports that he was discharged from [facility] facility about a month ago following admission in December 2016 with RLE cellulitis and PAD requiring angioplasty; she reports that about 2 weeks ago he was noted to have erythema and swelling of R lower leg for which he was taken to his PMD and placed on bactrim DS bid with improvement of his leg symptoms; Patient otherwise has had multiple falls over past couple of weeks; he reports intermittent dizziness although not currently; denies any change in vision; denies any change in urination; he did have diarrhea this past weekend along with what he reports as the flu with productive cough, currently improved; Patient denies any nausea/vomiting; reports having good appetite; Review of Systems - Constitutional Constitutional: Frequent Falls. absent: Anorexia - EENT Eyes: absent: Change in Vision Nose/Mouth/Throat: Nasal Congestion, Sore Throat - Cardiovascular Cardiovascular: Dyspnea on Exertion - Respiratory Respiratory: Cough - Gastrointestinal Gastrointestinal: As Per HPI - Genitourinary Genitourinary: As Per HPI - Musculoskeletal Musculoskeletal: absent: Arthralgias, Back Pain - Integumentary Integumentary: As Per HPI - Neurological Neurological: Headaches Past Patient History - Infectious Disease Hx of Infectious Diseases: None - Past Medical History & Family History Past Medical History?: Yes Pertinent Family History: No kidney disease per daughter; - Past Social History Smoking Status: Never Smoked - CARDIAC Hx Cardiac Disorders: Yes Hx Atrial Fibrillation: Yes Hx Hypercholesterolemia: Yes Hx Hypertension: Yes Hx Pacemaker: Yes (11/28/2015) - PULMONARY Hx Respiratory Disorders: No - NEUROLOGICAL Hx Neurological Disorder: No - HEENT Hx HEENT Problems: No - RENAL Hx Chronic Kidney Disease: Yes Hx Renal Failure: Yes - ENDOCRINE/METABOLIC Hx Endocrine Disorders: Yes Hx Diabetes Mellitus Type 2: Yes - HEMATOLOGICAL/ONCOLOGICAL Hx Blood Disorders: No Hx AIDS: No Hx Human Immunodeficiency Virus (HIV): No - INTEGUMENTARY Hx Dermatological Problems: Yes Hx Cellulitis: Yes - MUSCULOSKELETAL/RHEUMATOLOGICAL Hx Musculoskeletal Disorders: Yes Hx Falls: Yes (04/23/2017) Other/Comment: LEFT BKA - GASTROINTESTINAL Hx Gastrointestinal Disorders: No - GENITOURINARY/GYNECOLOGICAL Hx Genitourinary Disorders: No - PSYCHIATRIC Hx Psychophysiologic Disorder: No Hx Emotional Abuse: No Hx Physical Abuse: No Hx Substance Use: No - SURGICAL HISTORY Hx Surgeries: Yes Hx Coronary Artery Bypass Graft: Yes - ANESTHESIA Hx Anesthesia: Yes Hx Anesthesia Reactions: No Hx Malignant Hyperthermia: No Meds Allergies/Adverse Reactions: Allergies Allergy/AdvReac Type Severity Reaction Status Date / Time shrimp Allergy RASH Verified 04/26/17 10:37 Seafood Allergy SWELLING Uncoded 01/05/17 10:40 - Medications Medications: Current Medications Amlodipine Besylate (Norvasc) 10 mg PO DAILY [facility] Last Admin: 04/27/17 08:32 Dose: Not Given Aspirin (Ecotrin) 81 mg PO DAILY [facility] Last Admin: 04/27/17 08:32 Dose: 81 mg Enoxaparin Sodium (Lovenox) 40 mg SC DAILY [facility] PRN Reason: Protocol Last Admin: 04/27/17 08:30 Dose: 40 mg Home Med (Insulin Glargine, Recombina [Lantus]) 18 unit SC DAILY [facility] Home Med (Valsartan/Hydrochlorothiazide [Diovan Hct 320-25 Mg Tablet]) 1 tab PO DAILY [facility] Hydrochlorothiazide (Hydrodiuril) 25 mg PO DAILY [facility] Sodium Chloride (Sodium Chloride 0.9%) 1,000 mls @ 100 mls/hr IV .Q10H [facility] Insulin Detemir (Levemir) 18 units SC HS [facility] Last Admin: 04/26/17 22:17 Dose: 18 u Insulin Human Lispro (Humalog) 10 units SC ACBD [facility] Last Admin: 04/27/17 08:23 Dose: 10 units Insulin Human Lispro (Humalog) 0 units SC ACHS [facility] PRN Reason: Protocol Last Admin: 04/27/17 08:24 Dose: Not Given Pravastatin Sodium (Pravachol) 20 mg PO HS [facility] Last Admin: 04/26/17 22:16 Dose: 20 mg Trimethoprim/Sulfamethoxazole (Bactrim Ds Tab) 1 tab PO BID [facility] Last Admin: 04/27/17 08:31 Dose: 1 tab Valsartan (Diovan) 320 mg PO DAILY [facility] Physical Exam - Constitutional Appears: Well, No Acute Distress - Head Exam Head Exam: NORMAL INSPECTION - Eye Exam Eye Exam: Normal appearance. absent: Scleral icterus - ENT Exam ENT Exam: Mucous Membranes Moist - Neck Exam Neck exam: Negative for: Lymphadenopathy - Respiratory Exam Respiratory Exam: Clear to Auscultation Bilateral, NORMAL BREATHING PATTERN. absent: Rales, Rhonchi, Wheezes - Cardiovascular Exam Cardiovascular Exam: +S1, +S2. absent: Gallop, Rubs - GI/Abdominal Exam GI & Abdominal Exam: Soft. absent: Distended, Tenderness - Exam Exam: absent: Bladder Distension - Extremities Exam Extremities exam: Positive for: normal capillary refill - Neurological Exam Neurological exam: Alert - Psychiatric Exam Psychiatric exam: Normal Affect, Normal Mood - Skin Skin Exam: Normal Color, Warm Results - Vital Signs Recent Vital Signs: Last Vital Signs Temp 98.2 F 04/27/17 08:41 Pulse 64 04/27/17 08:41 Resp 20 04/27/17 08:41 BP 95/54 L 04/27/17 08:41 Pulse Ox 100 04/27/17 08:41 - Labs Result Diagrams: 04/27/17 05:00 04/27/17 05:00 Labs: Laboratory Results - last 24 hr 04/26/17 04/26/17 04/26/17 15:45 17:32 20:05 WBC RBC Hgb Hct MCV MCH MCHC RDW Plt Count Sodium 132 Potassium 5.1 H Chloride 105 Carbon Dioxide 16 L Anion Gap 16 BUN 94 H Creatinine 4.1 H Est GFR ( Amer) 17 Est GFR (Non-Af Amer) 14 POC Glucose (mg/dL) 204 H Random Glucose 179 H Calcium 7.6 L Magnesium 2.4 H Troponin I < 0.0120 NT-Pro-B Natriuret Pep Urine Color Urine Clarity Urine pH Ur Specific Baudette Urine Protein Urine Glucose (UA) Urine Ketones Urine Blood Urine Nitrate Urine Bilirubin Urine Urobilinogen Ur Leukocyte Esterase Urine RBC (Auto) Urine Microscopic WBC Ur Squamous Epith Cells 04/26/17 04/27/17 04/27/17 21:58 00:50 05:00 WBC 10.1 RBC 3.72 L Hgb 11.2 L Hct 34.2 L MCV 91.9 MCH 30.1 MCHC 32.8 L RDW 14.2 Plt Count 201 Sodium Potassium Chloride Carbon Dioxide Anion Gap BUN Creatinine Est GFR ( Amer) Est GFR (Non-Af Amer) POC Glucose (mg/dL) 286 H Random Glucose Calcium Magnesium Troponin I NT-Pro-B Natriuret Pep Urine Color Yellow Urine Clarity Slighty-cloudy Urine pH 5.0 Ur Specific Baudette 1.020 Urine Protein Negative Urine Glucose (UA) 50 Urine Ketones Negative Urine Blood Negative Urine Nitrate Negative Urine Bilirubin Negative Urine Urobilinogen 0.2-1.0 Ur Leukocyte Esterase Small Urine RBC (Auto) 4 H Urine Microscopic WBC 6 H Ur Squamous Epith Cells 1 04/27/17 04/27/17 04/27/17 05:00 05:00 05:19 WBC RBC Hgb Hct MCV MCH MCHC RDW Plt Count Sodium 134 Potassium 5.0 Chloride 106 Carbon Dioxide 17 L Anion Gap 16 BUN 93 H Creatinine 4.0 H Est GFR ( Amer) 17 Est GFR (Non-Af Amer) 14 POC Glucose (mg/dL) 145 H Random Glucose 138 H Calcium 8.2 L Magnesium Troponin I < 0.0120 NT-Pro-B Natriuret Pep 10089 H Urine Color Urine Clarity Urine pH Ur Specific Baudette Urine Protein Urine Glucose (UA) Urine Ketones Urine Blood Urine Nitrate Urine Bilirubin Urine Urobilinogen Ur Leukocyte Esterase Urine RBC (Auto) Urine Microscopic WBC Ur Squamous Epith Cells - Imaging and Cardiology Chest x-ray Status: Image reviewed by me Additional comment: Lungs clear; Assessment & Plan (1) Acute renal failure Assessment and Plan: Non-oliguric renal failure; appears multi-factorial; in the setting of recent URI and diarrhea (unclear for how long), with patient having been on ARB and thiazide diuretic, and with hypotension on presentation, had some pre-renal component; patient's serum creatinine did improve initially after IVF, however, at plateau since yesterday afternoon; question of whether there was extension of pre-renal insult into ATN; other likely differential is AIN secondary to bactrim; urine micro showing somewhat increased number of WBC's which is more indicative of AIN; only renal biopsy can give definitive answer, however, in patient with extensive co-morbidities and on ASA, biopsy may not be advisable at this time; Starting prednisone for possible AIN has been shown to expedite renal recovery, however, will hold off without definitive biopsy diagnosis and with patient having uncontrolled sugars at home; -d/c bactrim -decrease IVF to 50 cc/hr to avoid overload -obtaining urine lytes -obtaining renal US Status: Acute (2) Hypotension Assessment and Plan: Still with low/normal BP; -continue to hold anti-htn meds -continue IVF at decreased rate as above Status: Acute (3) Cellulitis of right leg Assessment and Plan: Placed on bactrim 2 weeks ago; appears resolved (shown picture of cellulitis at onset); -d/c bactrim as above; Status: Resolved (4) Type 2 diabetes mellitus Status: Chronic (5) PAD (peripheral artery disease) Assessment and Plan: On ASA and statin; continue; Status: Chronic (6) CHF (congestive heart failure) Assessment and Plan: With diastolic dysfunction; relatively asymptomatic but need to monitor for volume overload in setting of acute renal failure and IVF administration; decreasing IVF as above; Status: Chronic
[2017-04-27 11:53] LABS: RBC URINE 1 /hpf (0-3); URINE BACTERIA RARE (<OCC); URINE BILIRUBIN NEGATIVE (NEGATIVE); URINE BLOOD NEGATIVE (NEGATIVE); URINE COLOR YELLOW (YELLOW); URINE GLUCOSE (UA) NEG (Normal); URINE KETONE NEGATIVE (NEGATIVE); URINE LEUKOCYTE ESTERASE NEG Leu/uL (Negative); URINE PROTEIN NEGATIVE (NEGATIVE); URINE UROBILINOGEN 0.2-1.0 mg/dL (0.2-1.0); WBC URINE 2 /hpf (0-5)
[2017-04-27 12:14] LABS: CREATININE, RANDOM URINE 122.9 mg/dL
--- NOTE | 2017-04-27 15:25 | US ---
PROCEDURE: Ultrasound of the Kidneys HISTORY: acute renal failure COMPARISON: 05/31/2014. TECHNIQUE: Sonogram of the kidneys. FINDINGS: RIGHT KIDNEY: Measures: 4.6 x 4.6 x 9 cm. Normal in size, contour and echogenicity. No stone, solid mass lesion or hydronephrosis visualized. LEFT KIDNEY: Measures: 3.8 x 3.4 x 10.1 cm. Normal in size, contour and echogenicity. No stone, solid mass lesion or hydronephrosis visualized. OTHER FINDINGS: None. IMPRESSION: No significant or acute findings to account for/ related to the clinical presentation.
[2017-04-27] MEDS ORDERED: Dextrose 50% SYRINGE Inj (50 ml) IVP ONE (23:46)
[2017-04-28] MEDS: Insulin Lispro (humaLOG) 100 Units/ml Inj SC SCH ×7 (00:13→22:01)
[2017-04-28] MEDS: Pravastatin Sodium 20 MG TAB PO SCH ×2 (00:14→21:19)
[2017-04-28] MEDS: Insulin Detemir 100 Units/ml Inj SC SCH ×2 (00:14→22:08)
[2017-04-28] MEDS ORDERED: Dextrose 50% SYRINGE Inj (50 ml) IVP PRN (01:17)
[2017-04-28] MEDS: Dextrose 5%/0.45% NS 1,000 ML IV SCH ×2 (02:25→08:57)
[2017-04-28 06:54] LABS: CALCIUM 8.6 mg/dL (8.4-10.2)
[2017-04-28 07:26] LABS: CREATININE, RANDOM URINE 144 mg/dL (20-370)
[2017-04-28] MEDS: Enoxaparin 40 mg Syringe SC SCH (08:54)
[2017-04-28] MEDS ORDERED: Sodium Chloride 0.9% 1,000 ML IV SCH (12:00)
--- NOTE | 2017-04-28 12:09 | US ---
PROCEDURE: Urinary bladder ultrasound HISTORY: CKD, please check post void residual volume COMPARISON: None. TECHNIQUE: Standard protocol for this study/examination. FINDINGS: Urinary bladder assessment: Prevoid volume: 369.55 ml Postvoid residual: 369.55 ml. The patient did not indicated urge to void Intrinsic, mural, perivesical abnormalities: None Ureteral jets: Documented bilaterally. Calculated prostate volume 27.6 mL. Corresponding P PSA 3.31 IMPRESSION: Unremarkable urinary bladder. Postvoid residual is not calculated.
--- NOTE | 2017-04-28 13:49 | CP.PCM.PN ---
Subjective - Date & Time of Evaluation Date of Evaluation: 04/28/17 Time of Evaluation: 08:45 - Subjective Subjective: No overnight events. Patient appears well. No complaints offered. Nephro input appreciated. Would benefit from subacute rehabilitation. Son bedside concerned about pts memory. He states his father was drinking alcohol and not compliant with medications prior to admission. Objective - Vital Signs/Intake and Output Vital Signs (last 24 hours): Temp Pulse Resp BP Pulse Ox 98.5 F 76 18 123/72 95 04/28/17 12:39 04/28/17 12:39 04/28/17 12:39 04/28/17 12:39 04/28/17 12:39 Intake and Output: 04/28/17 04/28/17 06:59 18:59 Intake Total 940 Output Total 240 Balance 700 - Medications Medications: Current Medications Amlodipine Besylate (Norvasc) 10 mg PO DAILY [facility] Last Admin: 04/27/17 08:32 Dose: Not Given Aspirin (Ecotrin) 81 mg PO DAILY [facility] Last Admin: 04/28/17 08:55 Dose: 81 mg Dextrose (Dextrose 50% Inj) 50 ml IVP PRN PRN PRN Reason: Hypoglycemia Donepezil HCl (Aricept) 5 mg PO HS [facility] Last Admin: 04/28/17 00:14 Dose: 5 mg Enoxaparin Sodium (Lovenox) 40 mg SC DAILY [facility] PRN Reason: Protocol Last Admin: 04/28/17 08:54 Dose: 40 mg Home Med (Insulin Glargine, Recombina [Lantus]) 18 unit SC DAILY [facility] Home Med (Valsartan/Hydrochlorothiazide [Diovan Hct 320-25 Mg Tablet]) 1 tab PO DAILY [facility] Hydrochlorothiazide (Hydrodiuril) 25 mg PO DAILY [facility] Sodium Chloride (Sodium Chloride 0.9%) 1,000 mls @ 50 mls/hr IV .Q20H [facility] Stop: 04/29/17 11:56 Last Admin: 04/28/17 12:01 Dose: 50 mls/hr Insulin Detemir (Levemir) 18 units SC HS [facility] Last Admin: 04/28/17 00:14 Dose: Not Given Insulin Human Lispro (Humalog) 0 units SC ACHS [facility] PRN Reason: Protocol Last Admin: 04/28/17 12:01 Dose: 3 units Insulin Human Lispro (Humalog) 5 units SC ACBD [facility] Last Admin: 04/28/17 08:30 Dose: Not Given Pravastatin Sodium (Pravachol) 20 mg PO HS [facility] Last Admin: 04/28/17 00:14 Dose: 20 mg Valsartan (Diovan) 320 mg PO DAILY [facility] - Labs Labs: 04/27/17 05:00 04/28/17 05:00 PT 11.7 Seconds (9.8-13.1) 04/26/17 11:27 INR 1.1 (0.9-1.2) 04/26/17 11:27 APTT 27.3 Seconds (25.6-37.1) 04/26/17 11:27 - Constitutional Appears: No Acute Distress - Head Exam Head Exam: ATRAUMATIC, NORMAL INSPECTION, NORMOCEPHALIC - Eye Exam Eye Exam: EOMI, Normal appearance, PERRL - ENT Exam ENT Exam: Mucous Membranes Moist, Normal Exam - Respiratory Exam Respiratory Exam: NORMAL BREATHING PATTERN - Cardiovascular Exam Cardiovascular Exam: REGULAR RHYTHM (paced) - GI/Abdominal Exam GI & Abdominal Exam: Soft, Normal Bowel Sounds. absent: Tenderness - Neurological Exam Neurological Exam: Awake - Psychiatric Exam Psychiatric exam: Normal Affect, Normal Mood Assessment and Plan - Assessment and Plan (Free Text) Assessment: 81 year old male admitted due to hypotension and acute on chronic CKD of unclear etiology. # Acute renal failure # Hypotension # Dementia # IDDM -mealtime insulin to 5 units, continue with levemir 18units for now, monitor for hypoglycemia. -started on aricept -patient remains hypo to normotensive without medications. -pt/ot
[2017-04-28] MEDS: guaiFENesin DM 200 mg-20 mg/10 ml UD PO PRN (21:20)
[2017-04-29] MEDS: guaiFENesin DM 200 mg-20 mg/10 ml UD PO PRN (03:44)
[2017-04-29 06:51] LABS: HEMATOCRIT 34.7 % (35.0-51.0); MEAN CELL VOLUME 92.2 fl (80.0-94.0); MEAN CORPUSCULAR HEMOGLOBIN 30.2 pg (27.0-31.0); MEAN CORPUSCULAR HGB CONC 32.8 g/dL (33.0-37.0); RED CELL DISTRIBUTION WIDTH 13.7 % (11.5-14.5); WHITE BLOOD COUNT 9.7 K/uL (4.8-10.8)
[2017-04-29 06:54] LABS: CALCIUM 8.9 mg/dL (8.4-10.2)
[2017-04-29] MEDS: Insulin Lispro (humaLOG) 100 Units/ml Inj SC SCH ×5 (09:39→17:01)
[2017-04-29] MEDS: Enoxaparin 40 mg Syringe SC SCH (09:41)
[2017-04-29 12:57] VITALS: BP 110/56; PULSE 64; RESP 18; TEMP 98.1; O2SAT 98
--- NOTE | 2017-04-29 14:31 | CP.PCM.DIS ---
Provider - Provider Date of Admission: 04/26/17 14:25 Attending physician: Jos Palencia MD Consults: Dr. Jordan - Nephrology Time Spent in preparation of Discharge (in minutes): 35 Diagnosis - Discharge Diagnosis (1) Acute renal failure Status: Acute Comment: likely 2' to dehydration in addition to noncompliance with medications. patient was drinking alcohol at home. Educated patient and his son about patient abstaining from alcohol use. (2) Hypotension Status: Acute Comment: etiology unknown, unclear why patient is now normotensive. will d/c all bp meds except valsartan. (3) Type 2 diabetes mellitus Status: Chronic Comment: D/c on Levemir 18 unts qhs and 5 units regular insulin with meals Hospital Course - Lab Results Lab Results: Micro Results 04/27/17 00:50 Urine,Clean Catch Urine Culture - Final Gram Positive Cocci Most Recent Lab Values WBC 9.7 K/uL (4.8-10.8) 04/29/17 06:00 RBC 3.76 Mil/uL (4.40-5.90) L 04/29/17 06:00 Hgb 11.4 g/dL (12.0-18.0) L 04/29/17 06:00 Hct 34.7 % (35.0-51.0) L 04/29/17 06:00 MCV 92.2 fl (80.0-94.0) 04/29/17 06:00 MCH 30.2 pg (27.0-31.0) 04/29/17 06:00 MCHC 32.8 g/dL (33.0-37.0) L 04/29/17 06:00 RDW 13.7 % (11.5-14.5) 04/29/17 06:00 Plt Count 216 K/uL (130-400) 04/29/17 06:00 MPV 11.8 fl (7.2-11.7) H 04/26/17 11:27 Neut % (Auto) 86.9 % (50.0-75.0) H 04/26/17 11:27 Lymph % (Auto) 5.4 % (20.0-40.0) L 04/26/17 11:27 Parke % (Auto) 6.6 % (0.0-10.0) 04/26/17 11:27 Eos % (Auto) 0.6 % (0.0-4.0) 04/26/17 11:27 Baso % (Auto) 0.5 % (0.0-2.0) 04/26/17 11:27 Neut # 11.7 K/uL (1.8-7.0) H 04/26/17 11:27 Lymph # 0.7 K/uL (1.0-4.3) L 04/26/17 11:27 Parke # 0.9 K/uL (0.0-0.8) H 04/26/17 11:27 Eos # 0.1 K/uL (0.0-0.7) 04/26/17 11:27 Baso # 0.1 K/uL (0.0-0.2) 04/26/17 11:27 Neutrophils % (Manual) 88 % (42-75) H 04/26/17 11:27 Lymphocytes % (Manual) 3 % (20-50) L 04/26/17 11:27 Monocytes % (Manual) 6 % (0-10) 04/26/17 11:27 Eosinophils % (Manual) 1 % (0-7) 04/26/17 11:27 Basophils % (Manual) 1 % (0-2) 04/26/17 11:27 Myelocytes % 1 % (0-0) H 04/26/17 11:27 Platelet Estimate Normal (NORMAL) 04/26/17 11:27 Large Platelets Present 04/26/17 11:27 Hypochromasia (manual) Slight 04/26/17 11:27 Schistocytes Slight 04/26/17 11:27 PT 11.7 Seconds (9.8-13.1) 04/26/17 11:27 INR 1.1 (0.9-1.2) 04/26/17 11:27 APTT 27.3 Seconds (25.6-37.1) 04/26/17 11:27 pO2 25 mm/Hg (30-55) L 04/26/17 11:21 VBG pH 7.26 (7.32-7.43) L 04/26/17 11:21 VBG pCO2 49 mmHg (40-60) 04/26/17 11:21 VBG HCO3 19.5 mmol/L 04/26/17 11:21 VBG Total CO2 23.5 mmol/L (22-28) 04/26/17 11:21 VBG O2 Sat (Calc) 40.9 % (40-65) 04/26/17 11:21 VBG Base Excess -5.2 mmol/L (0.0-2.0) L 04/26/17 11:21 VBG Potassium 5.5 mmol/L (3.6-5.2) H 04/26/17 11:21 Sodium 130.0 mmol/L (132-148) L 04/26/17 11:21 Chloride 98.0 mmol/L (98-107) 04/26/17 11:21 Glucose 214 mg/dL (75-110) H 04/26/17 11:21 Lactate 2.8 mmol/L (0.7-2.1) H 04/26/17 11:21 FiO2 21.0 % 04/26/17 11:21 Sodium 137 mmol/l (132-148) 04/29/17 06:00 Potassium 5.0 MMOL/L (3.6-5.0) 04/29/17 06:00 Chloride 105 mmol/L (98-107) 04/29/17 06:00 Carbon Dioxide 23 mmol/L (22-30) 04/29/17 06:00 Anion Gap 14 (10-20) 04/29/17 06:00 BUN 41 mg/dl (9-20) H 04/29/17 06:00 Creatinine 1.5 mg/dL (0.8-1.5) 04/29/17 06:00 Est GFR ( Amer) 54 04/29/17 06:00 Est GFR (Non-Af Amer) 45 04/29/17 06:00 POC Glucose (mg/dL) 210 mg/dL (65-110) H 04/29/17 11:21 Random Glucose 92 mg/dL (75-110) 04/29/17 06:00 Calcium 8.9 mg/dL (8.4-10.2) 04/29/17 06:00 Phosphorus 3.7 mg/dl (2.5-4.5) 04/26/17 11:27 Magnesium 2.4 MG/DL (1.6-2.3) H 04/26/17 15:45 Total Bilirubin 0.5 mg/dl (0.2-1.3) 04/26/17 12:26 AST 45 U/L (17-59) 04/26/17 12:26 ALT 47 U/L (21-72) 04/26/17 12:26 Alkaline Phosphatase 104 U/L (38-126) 04/26/17 12:26 Troponin I < 0.0120 ng/mL (0.00-0.120) 04/27/17 05:00 NT-Pro-B Natriuret Pep 54594 pg/ml (0-900) H 04/29/17 06:00 Total Protein 6.9 G/DL (6.3-8.2) 04/26/17 12:26 Albumin 3.9 g/dL (3.5-5.0) 04/26/17 12:26 Globulin 3.1 gm/dL (2.2-3.9) 04/26/17 12:26 Albumin/Globulin Ratio 1.3 (1.0-2.1) 04/26/17 12:26 Venous Blood Potassium 5.5 mmol/L (3.6-5.2) H 04/26/17 11:21 Urine Color Yellow (YELLOW) 04/27/17 11:45 Urine Clarity Slighty-cloudy (Clear) 04/27/17 11:45 Urine pH 5.0 (5.0-8.0) 04/27/17 11:45 Ur Specific Jber 1.016 (1.003-1.030) 04/27/17 11:45 Urine Protein Negative mg/dL (NEGATIVE) 04/27/17 11:45 Urine Glucose (UA) Neg mg/dL (Normal) 04/27/17 11:45 Urine Ketones Negative mg/dL (NEGATIVE) 04/27/17 11:45 Urine Blood Negative (NEGATIVE) 04/27/17 11:45 Urine Nitrate Negative (NEGATIVE) 04/27/17 11:45 Urine Bilirubin Negative (NEGATIVE) 04/27/17 11:45 Urine Urobilinogen 0.2-1.0 mg/dL (0.2-1.0) 04/27/17 11:45 Ur Leukocyte Esterase Neg Yolanda/uL (Negative) 04/27/17 11:45 Urine RBC (Auto) 1 /hpf (0-3) 04/27/17 11:45 Urine Microscopic WBC 2 /hpf (0-5) 04/27/17 11:45 Ur Squamous Epith Cells < 1 /hpf (0-5) 04/27/17 11:45 Urine Bacteria Rare (<OCC) 04/27/17 11:45 Hyaline Casts 0-2 /hpf (0-2) 04/27/17 11:45 Ur Random Creatinine 122.9 mg/dL 04/27/17 11:45 U Random Total Protein 170 mg/g creat (22-128) H 04/27/17 11:45 Ur Random Sodium 22 mmol/L 04/27/17 11:45 Urine Creatinine 144 mg/dL (20-370) 04/27/17 11:45 Urine Microalbumin 1.0 mg/dL 04/27/17 11:45 Microalb/Creat Ratio 7 (<30) 04/27/17 11:45 - Hospital Course Hospital Course: 81 year old male admitted for hypotension and acute renal failure likely exacerbated by dehyration in conjunction with bactrim use. Patient was treated with IV hydration, antibiotics were discontinued. Patient remained normotensive for the duration of his admission, however will restart his laila inhibitor for cardiac and renal protection. His diabetes was controlled , decreased his insulin from 10 units to 5 units w/ meals. He will be discharged to [facility] for rehabilition. - Date & Time of H&P Date of H&P: 04/27/17 Time of H&P: 08:58 Discharge Exam - Head Exam Head Exam: ATRAUMATIC, NORMAL INSPECTION, NORMOCEPHALIC - Eye Exam Eye Exam: EOMI, Normal appearance, PERRL - Respiratory Exam Respiratory Exam: Decreased Breath Sounds, NORMAL BREATHING PATTERN, UNREMARKABLE. absent: Rales, Wheezes, Respiratory Distress - Cardiovascular Exam Cardiovascular Exam: REGULAR RHYTHM, +S1, +S2 - GI/Abdominal Exam GI & Abdominal Exam: Normal Bowel Sounds - Extremities Exam Additional comments: l bka - Neurological Exam Neurological exam: Alert, CN II-XII Intact - Psychiatric Exam Psychiatric exam: Normal Affect, Normal Mood - Skin Skin Exam: Dry, Intact, Normal Color, Warm Discharge Plan - Follow Up Plan Condition: STABLE Disposition: TRANSF TO [facility] Additional Instructions: Patient to be discharged to [facility]. Referrals: Jos Palencia MD [Staff Provider] -
--- NOTE | 2017-04-29 18:26 | CARD ---
APPROVED REPORT EKG Measurement Heart [id number] <Conclusion> Atrial fibrillation with frequent ventricular-paced complexes Left anterior fascicular block Cannot rule out Inferior infarct (masked by fascicular block?), age undetermined Anterior infarct, age undetermined Abnormal ECG
== END 2017-04-29 18:00 | DRG 315 ==
LOC: H.ER 10:23 → H.ERHOLD 14:25 → H.TEL 16:03
PROVIDERS: ADMIT Family Medicine; ATTEND Family Medicine
PROC: 3E0234Z Introduction of Serum, Toxoid and Vaccine into Muscle, Percutaneous Approach (ICD-10-PCS; principal; 2017-04-26)
DX: I95.9 Hypotension, unspecified (principal); I13.0 Hypertensive heart and chronic kidney disease with heart failure and stage 1 through stage 4 chronic kidney disease, or unspecified chronic kidney disease; N17.9 Acute kidney failure, unspecified; E11.22 Type 2 diabetes mellitus with diabetic chronic kidney disease; E86.0 Dehydration; F03.90 Unspecified dementia, unspecified severity, without behavioral disturbance, psychotic disturbance, mood disturbance, and anxiety; I48.91 Unspecified atrial fibrillation; I50.42 Chronic combined systolic (congestive) and diastolic (congestive) heart failure; I73.9 Peripheral vascular disease, unspecified; E78.5 Hyperlipidemia, unspecified; I25.10 Atherosclerotic heart disease of native coronary artery without angina pectoris; Z91.14 Patient's other noncompliance with medication regimen; E78.00 Pure hypercholesterolemia, unspecified; N18.9 Chronic kidney disease, unspecified; Z79.4 Long term (current) use of insulin; Z79.82 Long term (current) use of aspirin; Z79.899 Other long term (current) drug therapy; Z89.512 Acquired absence of left leg below knee; Z95.0 Presence of cardiac pacemaker; Z95.1 Presence of aortocoronary bypass graft; J06.9 Acute upper respiratory infection, unspecified; R19.7 Diarrhea, unspecified; R29.6 Repeated falls; R07.9 Chest pain, unspecified; Z23 Encounter for immunization

== ENCOUNTER 2017-10-17 14:21 | Emergency (ER) | payer MEDICARE, OTHER ==
[2017-10-17 14:21] VITALS: BMI 26.6
[2017-10-17 14:33] VITALS: BP 125/83; PULSE 75; RESP 17; TEMP 97.7; O2SAT 99
[2017-10-17] MEDS ORDERED: Tmp-Smz 800 mg-160 mg DS Tab PO STA (14:57)
--- NOTE | 2017-10-17 15:09 | ED PDOC ---
Lower Extremity Pain/Injury Time Seen by Provider: 10/17/17 14:39 Chief Complaint (Nursing): Lower Extremity Problem/Injury Chief Complaint (Provider): Lower extremity problem/injury History Per: Patient History/Exam Limitations: no limitations Onset/Duration Of Symptoms: Days (x4) Current Symptoms Are (Timing): Still Present Additional Complaint(s): Ayaz Johnston is an 81 year old male, with a past medical history of diabetes, and cellulitis twice in the past 2 years, who presents to the emergency for redness to right lower leg onset for x4 days. Patient states it's painful and swollen. Fingerstick fasting was 170 mg/dL. He denies any fever, recent travel, chest pain or shortness of breath. No further medical complaints. PMD: Laureano Jennings Past Medical History Reviewed: Historical Data, Nursing Documentation, Vital Signs Vital Signs: Last Vital Signs Temp 97.7 F 10/17/17 14:32 Pulse 75 10/17/17 14:32 Resp 17 10/17/17 14:32 BP 125/83 10/17/17 14:32 Pulse Ox 99 10/17/17 14:32 - Medical History PMH: Atrial Fibrillation, CAD, Diabetes, HTN, Hypercholesterolemia, Chronic Kidney Disease Denies: HIV - Surgical History Surgical History: CABG, Pacemaker (11/28/2015) - Family History Family History: States: Unknown Family Hx - Social History Current smoker - smoking cessation education provided: No Alcohol: None Drugs: Denies - Home Medications Home Medications: Ambulatory Orders Medication Instructions Recorded Aspirin [Ecotrin] 81 mg PO DAILY 04/26/17 Insulin Glargine, Recombina 18 unit SC DAILY 04/26/17 [Lantus] Pravastatin Sodium [Pravachol] 20 mg PO HS 04/26/17 Donepezil [Aricept] 5 mg PO HS #0 tab 04/29/17 Valsartan [Diovan] 320 mg PO DAILY tab 04/29/17 Cephalexin [Keflex] 500 mg PO Q6 #28 capsule 10/17/17 Sulfamethoxazole/Trimethoprim 2 tab PO BID #28 tab 10/17/17 [Bactrim DS 800 mg-160 mg] - Allergies Allergies/Adverse Reactions: Allergies Allergy/AdvReac Type Severity Reaction Status Date / Time shrimp Allergy RASH Verified 04/26/17 10:37 Seafood Allergy SWELLING Uncoded 01/05/17 10:40 Review of Systems ROS Statement: Except As Marked, All Systems Reviewed And Found Negative Constitutional: Negative for: Fever Cardiovascular: Negative for: Chest Pain Respiratory: Negative for: Shortness of Breath Musculoskeletal: Positive for: Leg Pain (right lower leg redness and swelling. ) Physical Exam - Reviewed Nursing Documentation Reviewed: Yes Vital Signs Reviewed: Yes - Physical Exam Comments: GENERAL APPEARANCE: Patient is awake, alert, oriented x 3, in no acute distress. SKIN: Warm, dry; (-) cyanosis. EYES: (-) conjunctival pallor. ENMT: Mucous membranes moist. NECK: (-) tenderness, (-) stiffness, (-) lymphadenopathy, (-) JVD. CHEST AND RESPIRATORY: (-) rash, (-) chest wall tenderness. Lungs: (-) rales , (-) rhonchi, (-) wheezes, (-) rub; breath sounds equal bilaterally. HEART AND CARDIOVASCULAR: (-) irregularity; (-) murmur, (-) gallop, (-) rub. ABDOMEN AND GI: Soft; (-) distention, (-) tenderness, (-) palpable pulsatile mass. EXTREMITIES: (-) deformity; (+) edema and erythema, no tenderness but warmth to touch to right lower extremity, mostly in anterior and medial aspect. (-) calf tenderness. (+) distal pulses and sensation intact. NEURO AND PSYCH: Mental status as above. Cranial nerves grossly intact; strength symmetric. - ECG O2 Sat by Pulse Oximetry: 99 (RA) Pulse Ox Interpretation: Normal Medical Decision Making Medical Decision Making: Initial Impression: Cellulitis Initial Plan: --Tylenol 325mg tab 975mg PO --Keflex 500 mg PO --Bactrim DS Tab 2 tab PO --Duplex Lower Extrm Vein Right [US] --Reevaluation -US negative, no DVT. -Diagnosis of cellulitis discussed with patient, advised to rest and elevate R leg. Advised to follow up with primary care physician in 1-2 days without fail. Advised to take medication as prescribed. Return to the emergency room at any time for any new or worsening symptoms. Patient states he fully agrees with and understands discharge instructions. States that he agrees with the plan and disposition. Verbalized and repeated discharge instructions and plan. I have given the patient opportunity to ask any additional questions. ~ Scribe Attestation: Documented by Cade Sam, acting as a scribe for Lauren Baeza PA-C. Provider Scribe Attestation: All medical record entries made by the Scribe were at my direction and personally dictated by me. I have reviewed the chart and agree that the record accurately reflects my personal performance of the history, physical exam, medical decision making, and the department course for this patient. I have also personally directed, reviewed, and agree with the discharge instructions and disposition. Disposition - Clinical Impression Clinical Impression: Cellulitis - Patient ED Disposition Is Patient to be Admitted: No Counseled Patient/Family Regarding: Studies Performed, Diagnosis, Need For Followup, Rx Given - Disposition Disposition: Routine/Home Disposition Time: 16:45 Condition: STABLE Additional Instructions: Thank you for letting us take care of you today. You were treated for cellulitis. The emergency medical care you received today was directed at your acute symptoms. If you were prescribed any medication, please fill it and take as directed. It may take several days for your symptoms to resolve. Return to the Emergency Department if your symptoms worsen, do not improve, or if you have any other problems. Please contact your doctor in 2 days for re-evaluation and follow up. Bring any paperwork you were given at discharge with you along with any medications you are taking to your follow up visit. Our treatment cannot replace ongoing medical care by a primary care provider (PCP) outside of the emergency department. Thank you for allowing the [facility] team to be part of your care today. Prescriptions: Cephalexin [Keflex] 500 mg PO Q6 #28 capsule Sulfamethoxazole/Trimethoprim [Bactrim DS 800 mg-160 mg] 2 tab PO BID #28 tab Instructions: Cellulitis (Skin Infection), Adult (DC) Forms: [employer] (Norwegian) Print Language: POLISH - PA / STRUCT[employer] SUPERVISOR / Resident Statement MD/DO has reviewed & agrees with the documentation as recorded.
[2017-10-17] MEDS ORDERED: Tmp-Smz 800 mg-160 mg DS Tab ONE (15:39)
--- NOTE | 2017-10-17 17:06 | US ---
PROCEDURE: Right lower extremity venous duplex Doppler. HISTORY: Pain. Rule out DVT. COMPARISON: Comparison made with prior study 09/01/2015. TECHNIQUE: Common femoral, superficial femoral, popliteal and posterior tibial veins were evaluated. Flow was assessed with color Doppler, compressibility, assessment of phasic flow and augmentation response. FINDINGS: COMMON FEMORAL VEIN: Unremarkable. SUPERFICIAL FEMORAL VEIN: Unremarkable. POPLITEAL VEIN: Unremarkable. POSTERIOR TIBIAL VEIN: Unremarkable. OTHER FINDINGS: None. IMPRESSION: No evidence of deep venous thrombosis in the right lower extremity.
== END 2017-10-17 17:50 | disposition home or self-care (01) ==
LOC: H.ER 14:21
DX: L03.115 Cellulitis of right lower limb (principal); E78.00 Pure hypercholesterolemia, unspecified; I12.9 Hypertensive chronic kidney disease with stage 1 through stage 4 chronic kidney disease, or unspecified chronic kidney disease; Z79.4 Long term (current) use of insulin; N18.9 Chronic kidney disease, unspecified; Z79.82 Long term (current) use of aspirin; Z95.0 Presence of cardiac pacemaker; Z95.1 Presence of aortocoronary bypass graft

== ENCOUNTER 2017-11-17 14:42 | Observation (INO) | payer MEDICARE, OTHER ==
[2017-11-17 14:42] VITALS: BMI 26.6
--- NOTE | 2017-11-17 16:00 | ED PDOC ---
Syncope/Near Syncope/Dizziness Time Seen by Provider: 11/17/17 15:58 Chief Complaint (Nursing): Weakness/Neurological Deficit Chief Complaint (Provider): SYNCOPE/SEIZURE History Per: Patient, Family (82 Y/O MALE H/O AFIB WITH AICD HERE WITH WITNESS LOC TODAY. FAMILY NOTES PATIENT HAD 20 SECONDS OF SHAKING ASSOCIATED WITH FOAMING FROM MOUTH AND URINARY INCONTINENCE. PATIENT APPEARED TO BE NORMAL MENTAL STATUS SUBSEQUENTLY AND WAS COMPLAINING ABOUT ABD PAIN AT THAT TIME.) Past Medical History Reviewed: Historical Data, Nursing Documentation, Vital Signs Vital Signs: Last Vital Signs Temp 97.3 F L 11/17/17 14:44 Pulse 68 11/17/17 14:44 Resp 16 11/17/17 14:44 BP 135/71 11/17/17 14:44 Pulse Ox 100 11/17/17 14:44 - Medical History PMH: Atrial Fibrillation, CAD, Diabetes, HTN, Hypercholesterolemia, Chronic Kidney Disease Denies: HIV - Surgical History Surgical History: CABG, Pacemaker (11/28/2015) - Family History Family History: States: Unknown Family Hx - Home Medications Home Medications: Ambulatory Orders Medication Instructions Recorded Aspirin [Ecotrin] 81 mg PO DAILY 04/26/17 Diltiazem HCl [Cardizem LA] 180 mg PO DAILY 11/17/17 Docusate [Colace] 100 mg PO Q48H 11/17/17 Donepezil [Aricept] 10 mg PO HS 11/17/17 Insulin Detemir [Levemir] 15 unit SC HS PRN 11/17/17 Linagliptin [Tradjenta] 5 mg PO DAILY 11/17/17 Multivit-Min/FA/Lycopen/Lutein 1 tab PO DAILY 11/17/17 [Centrum Silver Men Tablet] - Allergies Allergies/Adverse Reactions: Allergies Allergy/AdvReac Type Severity Reaction Status Date / Time shellfish derived Allergy SWELLING Verified 11/17/17 14:44 shrimp Allergy RASH Verified 04/26/17 10:37 Seafood Allergy SWELLING Uncoded 01/05/17 10:40 Review of Systems ROS Statement: Except As Marked, All Systems Reviewed And Found Negative Neurological: Positive for: Seizures, Other (SYNCOPE) Physical Exam - Reviewed Nursing Documentation Reviewed: Yes Vital Signs Reviewed: Yes - Physical Exam Appears: Positive for: Well, Non-toxic, No Acute Distress Head Exam: Positive for: ATRAUMATIC, NORMAL INSPECTION, NORMOCEPHALIC Skin: Positive for: Normal Color, Warm, DRY Eye Exam: Positive for: EOMI, Normal appearance, PERRL ENT: Positive for: Normal ENT Inspection Neck: Positive for: Normal, Painless ROM Cardiovascular/Chest: Positive for: Regular Rate, Rhythm Respiratory: Positive for: CNT, Normal Breath Sounds Gastrointestinal/Abdominal: Positive for: Normal Exam, Bowel Sounds, Soft Back: Positive for: Normal Inspection Extremity: Positive for: Normal ROM, Other (AKA LEFT LEG) Neurologic/Psych: Positive for: Alert, Oriented - Laboratory Results Result Diagrams: 11/17/17 16:19 11/17/17 16:19 - ECG O2 Sat by Pulse Oximetry: 100 - Progress ED Course And Treament: ekg: paced rhythm head ct :nad d/w dr. dawkins for tele observation Disposition - Clinical Impression Clinical Impression: Near syncope - Patient ED Disposition Is Patient to be Admitted: Yes - Disposition Disposition Time: 18:12 Condition: FAIR - Pt Status Changed To: Hospital Disposition Of: Observation
[2017-11-17 16:23] LABS: BASO % 0.5 % (0.0-2.0); EOS # 0.2 K/uL (0.0-0.7); EOS % 2.4 % (0.0-4.0); HEMOGLOBIN 13.9 g/dL (12.0-18.0); LYMPH # 1.1 K/uL (1.0-4.3); LYMPH % 12.8 % (20.0-40.0); MEAN CELL VOLUME 90.2 fl (80.0-94.0); MEAN CORPUSCULAR HGB CONC 33.2 g/dL (33.0-37.0); MEAN PLATELET VOLUME 11.2 fl (7.2-11.7); MONO # 0.8 K/uL (0.0-0.8); MONO % 9.3 % (0.0-10.0); NEUT # 6.5 K/uL (1.8-7.0); NRBC % 0.1 % (0.0-0.0); RBC 4.64 Mil/uL (4.40-5.90); RED CELL DISTRIBUTION WIDTH 14.3 % (11.5-14.5); WHITE BLOOD COUNT 8.7 K/uL (4.8-10.8)
[2017-11-17 16:41] LABS: ALB/GLOB RATIO 1.1 (1.0-2.1); ALBUMIN 3.9 g/dL (3.5-5.0); ALT/SGPT 34 U/L (21-72); AST/SGOT 27 U/L (17-59); BLOOD UREA NITROGEN 28 mg/dl (9-20); CALCIUM 9.4 mg/dL (8.4-10.2); GFR AFRICAN-AMERICAN > 60; GFR NON-AFRICAN AMERICAN > 60
[2017-11-17] MEDS ORDERED: Sodium Chloride 0.9% 500 ML IV STA (17:34)
--- NOTE | 2017-11-17 17:55 | CT ---
PROCEDURE: CT HEAD WITHOUT CONTRAST. HISTORY: Syncope/seizure COMPARISON: 04/26/2017. TECHNIQUE: Axial computed tomography images were obtained through the head/brain without intravenous contrast. Radiation dose: Total exam DLP = 868.02 mGy-cm. This CT exam was performed using one or more of the following dose reduction techniques: Automated exposure control, adjustment of the mA and/or kV according to patient size, and/or use of iterative reconstruction technique. FINDINGS: HEMORRHAGE: No intracranial hemorrhage. BRAIN: There are mild chronic microangiopathic changes. There is no mass, mass effect or abnormal extra-axial fluid collection. There are coarse atherosclerotic calcifications in the cavernous carotid and vertebral arteries. VENTRICLES: There is mild age-related global parenchymal volume loss and proportionate enlargement of the ventricles and cortical sulci. CALVARIUM: There is no calvarial fracture or extracranial soft tissue swelling. There is an old deformity in the right lamina papyracea. PARANASAL SINUSES: Predominantly clear. MASTOID AIR CELLS: Predominantly clear. OTHER FINDINGS: None. IMPRESSION: No acute intracranial abnormality. Mild chronic microangiopathic changes and mild age-related global parenchymal volume loss.
--- NOTE | 2017-11-17 18:45 | CP.PCM.HP ---
History of Present Illness - History of Present Illness History of Present Illness: 82 yo male with history of HTN, DM2, CAD, PVD, HLD, Dementia and AFib with AICD brought by family because of abdominal pain associated with generalized shaking , foaming of the mouth, rolling of the eyes upward and urinary incontinence. There was no loss of consciousness and patient appeared coherent and oriented. Patient denied wetting himself and admitted abdominal pain lasted for about 30 minutes then was spontaneously relieved. Denied chest pain, SOB or dizziness. Present on Admission - Present on Admission Any Indicators Present on Admission: No History of DVT/PE: No History of Uncontrolled Diabetes: No Urinary Catheter: No Decubitus Ulcer Present: No Review of Systems - Review of Systems All systems: reviewed and no additional remarkable complaints except (aside from those mentioned above, 12 point system review were negative by me) Past Patient History - Infectious Disease Hx of Infectious Diseases: None - Past Medical History & Family History Past Medical History?: Yes - Past Social History Smoking Status: Never Smoked Alcohol: None Drugs: Denies Home Situation {Lives}: With Family - CARDIAC Hx Atrial Fibrillation: Yes Hx Circulatory Problems: Yes (PAD) Hx Hypercholesterolemia: Yes Hx Hypertension: Yes Hx Internal Defibrillator: Yes (AICD) Hx Pacemaker: Yes (11/28/2015) Hx Peripheral Vascular Disease: Yes - PULMONARY Hx Respiratory Disorders: No - NEUROLOGICAL Hx Dementia: Yes - HEENT Hx HEENT Problems: No - RENAL Hx Chronic Kidney Disease: No - ENDOCRINE/METABOLIC Hx Endocrine Disorders: Yes Hx Diabetes Mellitus Type 2: Yes - HEMATOLOGICAL/ONCOLOGICAL Hx Blood Disorders: No Hx Human Immunodeficiency Virus (HIV): No - INTEGUMENTARY Hx Dermatological Problems: Yes Hx Cellulitis: Yes - MUSCULOSKELETAL/RHEUMATOLOGICAL Hx Musculoskeletal Disorders: Yes Hx Falls: Yes (04/23/2017) Other/Comment: LEFT BKA - GASTROINTESTINAL Hx Gastrointestinal Disorders: No - GENITOURINARY/GYNECOLOGICAL Hx Genitourinary Disorders: No - PSYCHIATRIC Hx Psychophysiologic Disorder: No Hx Emotional Abuse: No Hx Physical Abuse: No Hx Substance Use: No - SURGICAL HISTORY Hx Amputation: Yes (left BKA, 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 ) Hx Coronary Artery Bypass Graft: Yes - ANESTHESIA Hx Anesthesia: Yes Hx Anesthesia Reactions: No Hx Malignant Hyperthermia: No Meds Allergies/Adverse Reactions: Allergies Allergy/AdvReac Type Severity Reaction Status Date / Time shellfish derived Allergy SWELLING Verified 11/17/17 14:44 shrimp Allergy RASH Verified 04/26/17 10:37 Seafood Allergy SWELLING Uncoded 01/05/17 10:40 Physical Exam - Constitutional Appears: No Acute Distress - Head Exam Head Exam: ATRAUMATIC - Eye Exam Eye Exam: absent: Scleral icterus - ENT Exam ENT Exam: Mucous Membranes Moist - Neck Exam Neck exam: Negative for: Meningismus - Respiratory Exam Respiratory Exam: absent: Rales, Rhonchi, Wheezes, Respiratory Distress - Cardiovascular Exam Cardiovascular Exam: REGULAR RHYTHM, +S1, +S2 - GI/Abdominal Exam GI & Abdominal Exam: Soft. absent: Tenderness - Rectal Exam Rectal Exam: Deferred - Extremities Exam Extremities exam: Negative for: normal inspection (left BKA, 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 amputated) - Back Exam Back exam: NORMAL INSPECTION - Neurological Exam Neurological exam: Alert, Oriented x3 - Psychiatric Exam Psychiatric exam: Normal Affect - Skin Skin Exam: Dry, Intact Results - Vital Signs Recent Vital Signs: Last Vital Signs Temp 97.3 F L 11/17/17 14:44 Pulse 68 11/17/17 14:44 Resp 16 11/17/17 14:44 BP 135/71 11/17/17 14:44 Pulse Ox 100 11/17/17 18:12 - Labs Result Diagrams: 11/17/17 16:19 11/17/17 16:19 Labs: Laboratory Results - last 24 hr 11/17/17 11/17/17 11/17/17 16:12 16:19 16:19 WBC 8.7 RBC 4.64 Hgb 13.9 D Hct 41.9 MCV 90.2 D MCH 30.0 MCHC 33.2 RDW 14.3 Plt Count 139 MPV 11.2 Neut % (Auto) 75.0 Lymph % (Auto) 12.8 L [place] % (Auto) 9.3 Eos % (Auto) 2.4 Baso % (Auto) 0.5 Neut # (Auto) 6.5 Lymph # (Auto) 1.1 [place] # (Auto) 0.8 Eos # (Auto) 0.2 Baso # (Auto) 0.0 Sodium 142 Potassium 4.8 Chloride 98 Carbon Dioxide 32 H Anion Gap 17 BUN 28 H Creatinine 1.1 Est GFR ( Amer) > 60 Est GFR (Non-Af Amer) > 60 POC Glucose (mg/dL) 125 H Random Glucose 107 Calcium 9.4 Phosphorus 3.7 Magnesium 2.1 Total Bilirubin 0.7 AST 27 ALT 34 Alkaline Phosphatase 86 Troponin I < 0.0120 Total Protein 7.4 Albumin 3.9 Globulin 3.5 Albumin/Globulin Ratio 1.1 Assessment & Plan - Assessment and Plan (Free Text) Assessment: 82 yo male with history of HTN, DM2, CAD, PVD, HLD, Dementia and AFib with AICD brought by family because of abdominal pain associated with generalized shaking , foaming of the mouth, rolling of the eyes upward and urinary incontinence. There was no loss of consciousness and patient appeared coherent and oriented. Patient denied wetting himself and admitted abdominal pain lasted for about 30 minutes then was spontaneously relieved. Denied chest pain, SOB or dizziness. 1. Pre-syncope R/O Seizure place on observation in telemetry serial Troponin CT scan of head: unremarkable EEG neuro consult with Dr Claros 2. CAD continue ASA LIpitor 20mg PO HS 3. DM2 BS controlled Levemir 15 units SC HS Tradjenta 5mg PO daily accucheck ACHS HgA1C, BMP in am 4. HTN BP stable continue Cardizem LA 180mg PO daily 5. Dementia continue Aricept 10mg PO HS 6. AFib presently in sinus with controlled rate probably paroxysmal Afib with AICD on Cardizen LA 7. DVT prophylaxis Lovenox 40mg SC daily
[2017-11-18] MEDS: Insulin Detemir 100 Units/ml Inj SC SCH ×2 (00:43→21:52)
[2017-11-18 05:46] LABS: BASO % 0.6 % (0.0-2.0); EOS # 0.2 K/uL (0.0-0.7); HEMOGLOBIN 13.6 g/dL (12.0-18.0); LYMPH # 1.5 K/uL (1.0-4.3); LYMPH % 19.2 % (20.0-40.0); MEAN CELL VOLUME 89.5 fl (80.0-94.0); MEAN CORPUSCULAR HEMOGLOBIN 29.7 pg (27.0-31.0); MEAN CORPUSCULAR HGB CONC 33.2 g/dL (33.0-37.0); MEAN PLATELET VOLUME 11.6 fl (7.2-11.7); MONO # 0.6 K/uL (0.0-0.8); MONO % 8.2 % (0.0-10.0); NEUT # 5.3 K/uL (1.8-7.0); RBC 4.57 Mil/uL (4.40-5.90); RED CELL DISTRIBUTION WIDTH 14.2 % (11.5-14.5); WHITE BLOOD COUNT 7.6 K/uL (4.8-10.8)
[2017-11-18 06:11] LABS: BLOOD UREA NITROGEN 24 mg/dl (9-20); GFR AFRICAN-AMERICAN > 60; GFR NON-AFRICAN AMERICAN > 60
[2017-11-18] MEDS ORDERED: DILTIAZEM HCL 180 MG PO SCH (09:00)
[2017-11-18] MEDS: diltiaZEM 180 mg/24 Hours CD Cap PO SCH (09:18)
[2017-11-18] MEDS: Enoxaparin 40 mg Syringe SC SCH (09:19)
[2017-11-18] MEDS: Pantoprazole 40 mg EC Tab PO SCH (09:19)
[2017-11-18 11:51] LABS: URINE BACTERIA RARE (<OCC); URINE BILIRUBIN NEGATIVE (NEGATIVE); URINE BLOOD NEGATIVE (NEGATIVE); URINE CLARITY CLEAR (Clear); URINE COLOR STRAW (YELLOW); URINE GLUCOSE (UA) 150 mg/dL (Normal); URINE LEUKOCYTE ESTERASE TRACE Leu/uL (Negative); URINE PROTEIN NEGATIVE (NEGATIVE); URINE UROBILINOGEN 0.2-1.0 mg/dL (0.2-1.0)
--- NOTE | 2017-11-18 13:26 | CP.PCM.CON ---
History of Present Illness - History of Present Illness History of Present Illness: The patient is an 82-year-old HTN, DM2, CAD, PVD, HLD, dementia and atrial fibrillation with AICD brought by family because of abdominal pain associated with generalized shaking, foaming of the mouth, rolling of the eyes upward and urinary incontinence. Essentially, it was described as seizure-like activity. CT scan of the head did not show any acute findings. Review of Systems - Review of Systems All systems: reviewed and no additional remarkable complaints except Past Patient History - Infectious Disease Hx of Infectious Diseases: None - Past Medical History & Family History Past Medical History?: Yes - Past Social History Smoking Status: Never Smoked - CARDIAC Hx Atrial Fibrillation: Yes Hx Circulatory Problems: Yes (PAD) Hx Hypercholesterolemia: Yes Hx Hypertension: Yes Hx Internal Defibrillator: Yes (AICD) Hx Pacemaker: Yes (11/28/2015) Hx Peripheral Vascular Disease: Yes - PULMONARY Hx Respiratory Disorders: No - NEUROLOGICAL Hx Dementia: Yes - HEENT Hx HEENT Problems: No - RENAL Hx Chronic Kidney Disease: No - ENDOCRINE/METABOLIC Hx Endocrine Disorders: Yes Hx Diabetes Mellitus Type 2: Yes - HEMATOLOGICAL/ONCOLOGICAL Hx Blood Disorders: No - INTEGUMENTARY Hx Dermatological Problems: Yes Hx Cellulitis: Yes - MUSCULOSKELETAL/RHEUMATOLOGICAL Hx Falls: Yes - GASTROINTESTINAL Hx Gastrointestinal Disorders: Yes Hx Constipation: Yes - GENITOURINARY/GYNECOLOGICAL Hx Genitourinary Disorders: No - PSYCHIATRIC Hx Substance Use: No - SURGICAL HISTORY Hx Amputation: Yes (left BKA, 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 ) Hx Coronary Artery Bypass Graft: Yes - ANESTHESIA Hx Anesthesia: Yes Hx Anesthesia Reactions: No Hx Malignant Hyperthermia: No Meds Allergies/Adverse Reactions: Allergies Allergy/AdvReac Type Severity Reaction Status Date / Time shellfish derived Allergy SWELLING Verified 11/17/17 14:44 shrimp Allergy RASH Verified 04/26/17 10:37 Seafood Allergy SWELLING Uncoded 01/05/17 10:40 - Medications Medications: Current Medications Aspirin (Ecotrin) 81 mg PO DAILY [facility] Last Admin: 11/18/17 09:18 Dose: 81 mg Diltiazem HCl (Cardizem Cd) 180 mg PO DAILY [facility] Last Admin: 11/18/17 09:18 Dose: 180 mg Docusate Sodium (Colace) 100 mg PO Q48H [facility] Last Admin: 11/17/17 20:47 Dose: 100 mg Donepezil HCl (Aricept) 10 mg PO HS [facility] Last Admin: 11/17/17 22:05 Dose: 10 mg Enoxaparin Sodium (Lovenox) 40 mg SC DAILY [facility] PRN Reason: Protocol Last Admin: 11/18/17 09:19 Dose: 40 mg Insulin Detemir (Levemir) 15 units SC [facility] Last Admin: 11/18/17 00:43 Dose: 15 u Multivitamins/Minerals (Therapeutic-M Tab) 1 tab PO DAILY [facility] Pantoprazole Sodium (Protonix Ec Tab) 40 mg PO DAILY [facility] Last Admin: 11/18/17 09:19 Dose: 40 mg Sitagliptin Phosphate (Januvia) 100 mg PO DAILY [facility] Last Admin: 11/18/17 09:18 Dose: 100 mg Physical Exam - Constitutional Appears: Well - Head Exam Head Exam: ATRAUMATIC, NORMAL INSPECTION, NORMOCEPHALIC - Eye Exam Eye Exam: EOMI, Normal appearance, PERRL - ENT Exam ENT Exam: Mucous Membranes Moist, Normal Exam - Rectal Exam Rectal Exam: Deferred - Extremities Exam Additional comments: left BKA - Neurological Exam Neurological exam: Alert, CN II-XII Intact, Oriented x3, Reflexes Normal Additional comments: AAOX3, no focal deficits, left BKA, cannot ambulate. Results - Vital Signs Recent Vital Signs: Last Vital Signs Temp 98.2 F 11/18/17 08:00 Pulse 62 11/18/17 09:18 Resp 20 11/18/17 08:00 BP 161/66 H 11/18/17 09:18 Pulse Ox 97 11/18/17 08:00 - Labs Result Diagrams: 11/18/17 05:00 11/18/17 05:00 Labs: Laboratory Results - last 24 hr 11/17/17 11/17/17 11/17/17 16:12 16:19 16:19 WBC 8.7 RBC 4.64 Hgb 13.9 D Hct 41.9 MCV 90.2 D MCH 30.0 MCHC 33.2 RDW 14.3 Plt Count 139 MPV 11.2 Neut % (Auto) 75.0 Lymph % (Auto) 12.8 L [place] % (Auto) 9.3 Eos % (Auto) 2.4 Baso % (Auto) 0.5 Neut # (Auto) 6.5 Lymph # (Auto) 1.1 [place] # (Auto) 0.8 Eos # (Auto) 0.2 Baso # (Auto) 0.0 Sodium 142 Potassium 4.8 Chloride 98 Carbon Dioxide 32 H Anion Gap 17 BUN 28 H Creatinine 1.1 Est GFR ( Amer) > 60 Est GFR (Non-Af Amer) > 60 POC Glucose (mg/dL) 125 H Random Glucose 107 Hemoglobin A1c Calcium 9.4 Phosphorus 3.7 Magnesium 2.1 Total Bilirubin 0.7 AST 27 ALT 34 Alkaline Phosphatase 86 Troponin I < 0.0120 Total Protein 7.4 Albumin 3.9 Globulin 3.5 Albumin/Globulin Ratio 1.1 Urine Color Urine Clarity Urine pH Ur Specific Edwards Urine Protein Urine Glucose (UA) Urine Ketones Urine Blood Urine Nitrate Urine Bilirubin Urine Urobilinogen Ur Leukocyte Esterase Urine RBC (Auto) Urine Microscopic WBC Urine Bacteria 11/17/17 11/18/17 11/18/17 22:09 00:26 00:30 WBC RBC Hgb Hct MCV MCH MCHC RDW Plt Count MPV Neut % (Auto) Lymph % (Auto) [place] % (Auto) Eos % (Auto) Baso % (Auto) Neut # (Auto) Lymph # (Auto) [place] # (Auto) Eos # (Auto) Baso # (Auto) Sodium Potassium Chloride Carbon Dioxide Anion Gap BUN Creatinine Est GFR ( Amer) Est GFR (Non-Af Amer) POC Glucose (mg/dL) 266 H 270 H Random Glucose Hemoglobin A1c Calcium Phosphorus Magnesium Total Bilirubin AST ALT Alkaline Phosphatase Troponin I < 0.0120 Total Protein Albumin Globulin Albumin/Globulin Ratio Urine Color Urine Clarity Urine pH Ur Specific Edwards Urine Protein Urine Glucose (UA) Urine Ketones Urine Blood Urine Nitrate Urine Bilirubin Urine Urobilinogen Ur Leukocyte Esterase Urine RBC (Auto) Urine Microscopic WBC Urine Bacteria 11/18/17 11/18/17 11/18/17 05:00 05:00 05:00 WBC 7.6 RBC 4.57 Hgb 13.6 Hct 40.9 MCV 89.5 MCH 29.7 MCHC 33.2 RDW 14.2 Plt Count 128 L MPV 11.6 Neut % (Auto) 69.0 Lymph % (Auto) 19.2 L [place] % (Auto) 8.2 Eos % (Auto) 3.0 Baso % (Auto) 0.6 Neut # (Auto) 5.3 Lymph # (Auto) 1.5 [place] # (Auto) 0.6 Eos # (Auto) 0.2 Baso # (Auto) 0.0 Sodium 139 Potassium 4.4 Chloride 99 Carbon Dioxide 31 H Anion Gap 13 BUN 24 H Creatinine 0.9 Est GFR ( Amer) > 60 Est GFR (Non-Af Amer) > 60 POC Glucose (mg/dL) Random Glucose 174 H Hemoglobin A1c 9.8 H D Calcium 9.0 Phosphorus Magnesium Total Bilirubin AST ALT Alkaline Phosphatase Troponin I Total Protein Albumin Globulin Albumin/Globulin Ratio Urine Color Urine Clarity Urine pH Ur Specific Edwards Urine Protein Urine Glucose (UA) Urine Ketones Urine Blood Urine Nitrate Urine Bilirubin Urine Urobilinogen Ur Leukocyte Esterase Urine RBC (Auto) Urine Microscopic WBC Urine Bacteria 11/18/17 11/18/17 11/18/17 06:41 09:00 11:39 WBC RBC Hgb Hct MCV MCH MCHC RDW Plt Count MPV Neut % (Auto) Lymph % (Auto) [place] % (Auto) Eos % (Auto) Baso % (Auto) Neut # (Auto) Lymph # (Auto) [place] # (Auto) Eos # (Auto) Baso # (Auto) Sodium Potassium Chloride Carbon Dioxide Anion Gap BUN Creatinine Est GFR ( Amer) Est GFR (Non-Af Amer) POC Glucose (mg/dL) 130 H Random Glucose Hemoglobin A1c Calcium Phosphorus Magnesium Total Bilirubin AST ALT Alkaline Phosphatase Troponin I 0.0170 Total Protein Albumin Globulin Albumin/Globulin Ratio Urine Color Straw Urine Clarity Clear Urine pH 7.0 Ur Specific Edwards 1.012 Urine Protein Negative Urine Glucose (UA) 150 Urine Ketones Negative Urine Blood Negative Urine Nitrate Negative Urine Bilirubin Negative Urine Urobilinogen 0.2-1.0 Ur Leukocyte Esterase Trace Urine RBC (Auto) 1 Urine Microscopic WBC 3 Urine Bacteria Rare Assessment & Plan (1) Loss of consciousness Assessment and Plan: Considering the patient's cardiac risk factors, the event was most likely vasovagal syncope or neurocardiogenic in origin. I recommend further cardiac work-up. CT scan of the head was non-acute and he is back to baseline. EEG may be done for further evaluation. Thank you. Status: Acute Priority: High
[2017-11-18] MEDS: Multivitamin With Minerals Tab PO SCH (14:00)
--- NOTE | 2017-11-18 14:08 | CP.PCM.PN ---
Subjective - Date & Time of Evaluation Date of Evaluation: 11/18/17 Time of Evaluation: 10:00 - Subjective Subjective: denies CP no SOB denies headache nor dizziness no further seizure like activity in the hospital no abd pain no fever Objective - Vital Signs/Intake and Output Vital Signs (last 24 hours): Temp Pulse Resp BP Pulse Ox 98 F 75 20 159/77 H 99 11/18/17 13:00 11/18/17 13:00 11/18/17 13:00 11/18/17 13:00 11/18/17 13:00 - Medications Medications: Current Medications Aspirin (Ecotrin) 81 mg PO DAILY [facility] Last Admin: 11/18/17 09:18 Dose: 81 mg Diltiazem HCl (Cardizem Cd) 180 mg PO DAILY [facility] Last Admin: 11/18/17 09:18 Dose: 180 mg Docusate Sodium (Colace) 100 mg PO Q48H [facility] Last Admin: 11/17/17 20:47 Dose: 100 mg Donepezil HCl (Aricept) 10 mg PO [facility] Last Admin: 11/17/17 22:05 Dose: 10 mg Enoxaparin Sodium (Lovenox) 40 mg SC DAILY [facility] PRN Reason: Protocol Last Admin: 11/18/17 09:19 Dose: 40 mg Insulin Detemir (Levemir) 15 units SC [facility] Last Admin: 11/18/17 00:43 Dose: 15 u Multivitamins/Minerals (Therapeutic-M Tab) 1 tab PO DAILY [facility] Last Admin: 11/18/17 14:00 Dose: 1 tab Pantoprazole Sodium (Protonix Ec Tab) 40 mg PO DAILY [facility] Last Admin: 11/18/17 09:19 Dose: 40 mg Sitagliptin Phosphate (Januvia) 100 mg PO DAILY [facility] Last Admin: 11/18/17 09:18 Dose: 100 mg - Labs Labs: 11/18/17 05:00 11/18/17 05:00 - Constitutional Appears: Non-toxic, No Acute Distress - Head Exam Head Exam: NORMAL INSPECTION, NORMOCEPHALIC - Eye Exam Eye Exam: EOMI, Normal appearance, PERRL Pupil Exam: NORMAL ACCOMODATION - ENT Exam ENT Exam: Mucous Membranes Moist, Normal External Ear Exam - Neck Exam Neck Exam: Full ROM. absent: Meningismus - Respiratory Exam Respiratory Exam: NORMAL BREATHING PATTERN. absent: Respiratory Distress - Cardiovascular Exam Cardiovascular Exam: REGULAR RHYTHM, +S1, +S2 - GI/Abdominal Exam GI & Abdominal Exam: Soft, Normal Bowel Sounds. absent: Tenderness - Extremities Exam Extremities Exam: Normal Capillary Refill. absent: Calf Tenderness Additional comments: left BKA - Back Exam Back Exam: Full ROM, NORMAL INSPECTION. absent: CVA tenderness (L), CVA tenderness (R) - Neurological Exam Neurological Exam: Alert, Awake, CN II-XII Intact, Normal Gait Neuro motor strength exam: Left Upper Extremity: 5, Right Upper Extremity: 5, Left Lower Extremity: 5, Right Lower Extremity: 5 Additional comments: oriented to person and place - Psychiatric Exam Psychiatric exam: Normal Affect, Normal Mood Assessment and Plan - Assessment and Plan (Free Text) Assessment: 82 yo male with history of HTN, DM2, CAD, PVD, HLD, Dementia and AFib w/ Pacemaker brought by family because of " Seizure like activity" described as generalized shaking, foaming of the mouth, rolling of the eyes upward and urinary incontinence. 1. Suspected Seizure place on observation in telemetry serial Troponin negative CT scan of head: unremarkable EEG Neuro consulted Dr Claros 2. CAD continue ASA LIpitor 20mg PO HS Cardio consult to r/o Cardiac etiology of seizure as pt has hx of CAD and A fib - Dr Lazo , discussed case ECHO 3. DM2 BS controlled Levemir 15 units SC HS accucheck ACHS HgA1C, BMP in am 4. HTN BP stable continue Cardizem LA 180mg PO daily 5. Dementia continue Aricept 10mg PO HS 6. AFib prob Paroxysmal , Hx of Pacemaker presently in sinus with controlled rate probably paroxysmal Afib on Cardizen LA 7. DVT prophylaxis Lovenox 40mg SC daily
--- NOTE | 2017-11-18 14:27 | CARD ---
APPROVED REPORT EXAM: Two-dimensional and M-mode echocardiogram with Doppler and color Doppler. Other Information Quality : GoodRhythm : NSR INDICATION Syncope Surgery/Intervention ICD/Pacemaker: 2D DIMENSIONS IVSd1.19 (0.7-1.1cm)LVDd3.35 (3.9-5.9cm) LVOT Diameter2.14 (1.8-2.4cm)PWd1.19 (0.7-1.1cm) IVSs1.89 (0.8-1.2cm)LVDs1.42 (2.5-4.0cm) FS (%) 57.6 %PWs1.64 (0.8-1.2cm) LVEF (%)55.0 (>50%) M-Mode DIMENSIONS Left Atrium (MM)4.33 (2.5-4.0cm)IVSd1.19 (0.7-1.1cm) Aortic Root3.06 (2.2-3.7cm)LVDd4.21 (4.0-5.6cm) Aortic Cusp Exc.1.46 (1.5-2.0cm)PWd1.10 (0.7-1.1cm) IVSs1.70 cmFS (%) 46 % LVDs2.27 (2.0-3.8cm)PWs1.31 cm Aortic Valve AoV Peak Vqvfpwpm568.4cm/sAoV VTI29.0cmAO Peak GR.7mmHg LVOT Peak Auxmlxdu521.9cm/sLVOT VTI24.23cmAO Mean GR.4mmHg ROBERTO (VMAX)1.03mz0TJC (VTI)1.88cm2 Mitral Valve MV E Ublrydeh701.5cm/sMV DECEL SIMQ214dvSZ A Dchlzjkx942.3cm/s MV DLV377niY/A ratio0.8MVA (PHT)2.17cm2 TDI Lateral E' Peak V7.25cm/sMedial E' Peak V4.73cm/sE/Lateral E'18.1 E/Medial E'27.8 Pulmonary Valve PV Peak Jxindgnl021.9cm/s Tricuspid Valve TR Peak Imgyyiac772sz/sRAP ACKOIQIQ59vzJzBW Peak Gr.26mmHg FIRI93rhYr LEFT VENTRICLE The left ventricle is normal size. Asymmetric Septal hypertrophy The left ventricular function is normal. The left ventricular ejection fraction is within the normal range. There is normal LV segmental wall motion. Transmitral Doppler flow pattern is Grade I-abnormal relaxation pattern. No left ventricle thrombus noted on this study. RIGHT VENTRICLE The right ventricle is normal size. There is normal right ventricular wall thickness. The right ventricular systolic function is normal. ATRIA The left atrium is borderline dilated. The right atrium size is normal. AORTIC VALVE The aortic valve is mildly thickened. There is mild aortic regurgitation. There is no aortic valvular stenosis. MITRAL VALVE The mitral valve is not well visualized. There is no mitral valve stenosis. There is no mitral valve regurgitation noted. TRICUSPID VALVE The tricuspid valve is normal in structure. There is mild tricuspid regurgitation. There is mild pulmonary hypertension. PULMONIC VALVE The pulmonary valve is normal in structure. There is no pulmonic valvular regurgitation. GREAT VESSELS The aortic root is normal in size. The IVC is normal in size and collapses >50% with inspiration. PERICARDIAL EFFUSION The pericardium appears normal. <Conclusion> The left ventricle is normal size. Asymmetric Septal hypertrophy The left ventricular function is normal. The left ventricular ejection fraction is within the normal range. There is normal LV segmental wall motion. Transmitral Doppler flow pattern is Grade I-abnormal relaxation pattern. There is mild aortic regurgitation. There is mild tricuspid regurgitation. There is mild pulmonary hypertension.
[2017-11-18 18:51] LABS: PARTIAL THROMBOPLASTIN TIME 37.5 Seconds (25.6-37.1)
--- NOTE | 2017-11-18 20:39 | CARD ---
APPROVED REPORT EKG Measurement Heart [id number] <Conclusion> Sinus rhythm with 1st degree AV block Left anterior fascicular block Abnormal ECG
--- NOTE | 2017-11-18 23:36 | CON ---
DATE: CARDIOLOGY CONSULTATION REASON FOR CONSULTATION: Near syncope and questionable seizure activity. HISTORY OF PRESENT ILLNESS: The patient is an 82-year-old male, who has a history of single chamber pacemaker placement 3 years ago. The patient is not clear about indication except for the fact that he used to passed out because of low blood sugar; however, pacemaker was placed, but did not correct the issue of passing out. The patient denies any history of coronary intervention in the past. The patient presented because of abdominal pain and generalized shaking, foaming of the moth, rolling of the eyes upwards and urinary incontinence as per the Emergency Room note obtained from the patient's family. At this time, the patient himself denied the fact that he passed out and denied the fact that he had incontinence; however, I rely more on the usp documentation. The patient denies any chest pain, dizziness or headache at this time. 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 SOCIAL HISTORY: Nonsmoker. The patient lives with his son. MEDICATIONS: Aricept 10 mg once a day, Cardizem CD 180 mg once a day, Colace 100 mg q. 48 hours, aspirin 81 mg once a day, Januvia 100 mg once a day, Levemir 15 units subcutaneous at bedtime, Lovenox 20 mg once a day, Protonix 20 mg once a day. REVIEW OF SYSTEMS: No fever. No vomiting or diarrhea. No productive cough and no retrosternal chest pain. PHYSICAL EXAMINATION GENERAL: The patient is an elderly male who does not appeared to be in acute distress. VITAL SIGNS: Blood pressure 167/77, heart rate 70, temperature 97.7, respirations 20. HEENT: Normocephalic. CHEST: Clear. HEART: S1 and S2, regular. ABDOMEN: Soft. EXTREMITIES: Left below knee amputation. LABORATORY DATA: SMA-7; Sodium 139, potassium 4.4, chloride 99, CO2 31, glucose , BUN 24, creatinine 0.9. Two sets of troponin are negative. Today's hemoglobin, hematocrit, white count are within normal limits. Platelet count today is below normal at 128, yesterday was within normal limits. EKG revealed sinus rhythm with first degree AV block, left anterior fascicular block. Echocardiographic study revealed normal ventricular size with asymmetric septal hypertrophy, normal ejection fraction, mild aortic insufficiency and mild pulmonary hypertension. Head CT scan without contrast, no acute intracranial findings, mild chronic microangiopathic changes and mild age related global parenchymal loss. ASSESSMENT: 1. Syncopal episode. 2. Questionable seizure activity. 3. Uncontrolled diabetes mellitus. 4. Mild thrombocytopenia. 5. First degree atrioventricular block by EKG. 6. Mild aortic insufficiency. 7. Mild pulmonary hypertension. 8. Peripheral vascular disease status post left below knee amputation. RECOMMENDATIONS: Continue Cardizem at 180 mg daily, aspirin 81 mg once a day, Lovenox 20 mg subcutaneously once a day. Continue current telemetry monitoring. Obtain PT, PTT and INR. Repeat 12-lead EKG. Esvin Lazo MD
[2017-11-19 00:20] VITALS: RESP 18
[2017-11-19 08:19] VITALS: O2SAT 100
[2017-11-19] MEDS: Pantoprazole 40 mg EC Tab PO SCH (08:50)
[2017-11-19] MEDS: Multivitamin With Minerals Tab PO SCH (08:50)
[2017-11-19] MEDS: diltiaZEM 180 mg/24 Hours CD Cap PO SCH (08:50)
[2017-11-19] MEDS: Enoxaparin 40 mg Syringe SC SCH (08:51)
[2017-11-19 12:18] VITALS: BP 141/71; PULSE 67; TEMP 98.2
--- NOTE | 2017-11-19 15:08 | US ---
PROCEDURE: Duplex ultrasound of the carotid and vertebral arteries. HISTORY: SYNCOPE COMPARISON: None available. TECHNIQUE: Grayscale and duplex Doppler evaluation of the cervical carotid and vertebral arteries were performed. The common carotid, carotid bifurcations and cervical ICA and proximal ECA were evaluated. The vertebral arteries were evaluated for gross patency and direction. FINDINGS: RIGHT CAROTID ARTERIES: Common Carotid Artery: Calcific plaque. Maximal flow velocity of 82.0 cm/s. Carotid Bifurcation: Calcific plaque. Internal Carotid Artery:Calcific plaque. Maximal flow velocity of 74.7 cm/s. External Carotid Artery (proximal branches): Normal. Maximal flow velocity of 198.3 cm/s. ICA/CCA Ratio: 0.9 LEFT CAROTID ARTERIES: Common Carotid Artery: Calcific plaque. Maximal flow velocity of 82.5 cm/s. Carotid Bifurcation: Calcific plaque. Internal Carotid Artery:Calcific plaque. Maximal flow velocity of 47.6 cm/s. External Carotid Artery (proximal branches): Normal. Maximal flow velocity of 301.9 cm/s. ICA/CCA Ratio: 0.6 VERTEBRAL ARTERIES: Right Vertebral Artery: Patent. Antegrade flow. Left Vertebral Artery: Patent. Antegrade flow. OTHER FINDINGS: None. IMPRESSION: Per NASCET criteria, less than 50 percent stenosis of the internal carotid arteries bilaterally.
--- NOTE | 2017-11-19 15:51 | PN ---
DATE: SUBJECTIVE: The patient denies any dizziness or chest pain. The patient was interviewed with Dr. Haylee Trinidad, the primary physician. The patient insists and denying that he passed out and he was aware of every moment and prior to his presentation to the Emergency Room and he remembers when he was shaking and stated he was sweating at that time. There is no reported ventricular arrhythmia on the monitor. PHYSICAL EXAMINATION: VITAL SIGNS: Blood pressure of 141/71, heart rate of 67, temperature of 98.2 and respirations of 18. HEENT: Normocephalic. CHEST: Clear. HEART: S1 and S2 regular. EXTREMITIES: Left below-knee amputation. LABORATORY DATA: Today's blood sugar is 81. DIAGNOSTIC DATA: Echocardiography study performed yesterday revealed asymmetric septal hypertrophy, normal systolic function, mild aortic insufficiency and mild pulmonary hypertension. Reduced compliance. Yesterday's EKG revealed ventricular paced sinus. ASSESSMENT: 1. Questionable syncopal episode, the patient himself denies passing out. 2. History of ventricular pacemaker placement, which is adequately functioning. 3. Peripheral vascular disease status post left below-knee amputation. 4. Uncontrolled diabetes mellitus. RECOMMENDATIONS: Continue current Cardizem, aspirin, subcutaneous Lovenox and Aricept. Obtain carotid Doppler; however, no invasive cardiac workup is planned for now. Esvin Lazo MD
--- NOTE | 2017-11-19 15:51 | CARD ---
APPROVED REPORT EKG Measurement Heart [id number] <Conclusion> Ventricular-paced rhythm with fusion complexes Abnormal ECG
--- NOTE | 2017-11-19 16:08 | CP.PCM.DIS ---
Provider - Provider Date of Admission: 11/17/17 17:46 Attending physician: Cl Winslow MD Primary care physician: Dr Lopez Consults: Cardio: Dr Lazo Neuro: Dr Claros Time Spent in preparation of Discharge (in minutes): 40 Diagnosis - Discharge Diagnosis (1) Observed seizure-like activity Status: Acute (2) Near syncope Status: Acute Priority: High (3) DM type 2 (diabetes mellitus, type 2) Status: Chronic (4) HTN (hypertension) Status: Chronic (5) PAD (peripheral artery disease) Status: Chronic Hospital Course - Lab Results Lab Results: Micro Results 11/18/17 11:39 Urine,Clean Catch Urine Culture - Final 10-50,000 CFU/ML. MULTIPLE SPECIES. PROBABLE CONTAMINATION. Most Recent Lab Values WBC 7.6 K/uL (4.8-10.8) 11/18/17 05:00 RBC 4.57 Mil/uL (4.40-5.90) 11/18/17 05:00 Hgb 13.6 g/dL (12.0-18.0) 11/18/17 05:00 Hct 40.9 % (35.0-51.0) 11/18/17 05:00 MCV 89.5 fl (80.0-94.0) 11/18/17 05:00 MCH 29.7 pg (27.0-31.0) 11/18/17 05:00 MCHC 33.2 g/dL (33.0-37.0) 11/18/17 05:00 RDW 14.2 % (11.5-14.5) 11/18/17 05:00 Plt Count 128 K/uL (130-400) L 11/18/17 05:00 MPV 11.6 fl (7.2-11.7) 11/18/17 05:00 Neut % (Auto) 69.0 % (50.0-75.0) 11/18/17 05:00 Lymph % (Auto) 19.2 % (20.0-40.0) L 11/18/17 05:00 [place] % (Auto) 8.2 % (0.0-10.0) 11/18/17 05:00 Eos % (Auto) 3.0 % (0.0-4.0) 11/18/17 05:00 Baso % (Auto) 0.6 % (0.0-2.0) 11/18/17 05:00 Neut # (Auto) 5.3 K/uL (1.8-7.0) 11/18/17 05:00 Lymph # (Auto) 1.5 K/uL (1.0-4.3) 11/18/17 05:00 [place] # (Auto) 0.6 K/uL (0.0-0.8) 11/18/17 05:00 Eos # (Auto) 0.2 K/uL (0.0-0.7) 11/18/17 05:00 Baso # (Auto) 0.0 K/uL (0.0-0.2) 11/18/17 05:00 PT 11.0 Seconds (9.8-13.1) 11/18/17 17:51 INR 1.0 (0.9-1.2) 11/18/17 17:51 APTT 37.5 Seconds (25.6-37.1) H 11/18/17 17:51 Sodium 139 mmol/l (132-148) 11/18/17 05:00 Potassium 4.4 MMOL/L (3.6-5.0) 11/18/17 05:00 Chloride 99 mmol/L (98-107) 11/18/17 05:00 Carbon Dioxide 31 mmol/L (22-30) H 11/18/17 05:00 Anion Gap 13 (10-20) 11/18/17 05:00 BUN 24 mg/dl (9-20) H 11/18/17 05:00 Creatinine 0.9 mg/dl (0.8-1.5) 11/18/17 05:00 Est GFR ( Amer) > 60 11/18/17 05:00 Est GFR (Non-Af Amer) > 60 11/18/17 05:00 POC Glucose (mg/dL) 81 mg/dL (65-110) 11/19/17 05:35 Random Glucose 174 mg/dL (75-110) H 11/18/17 05:00 Hemoglobin A1c 9.8 % (4.2-6.5) H D 11/18/17 05:00 Calcium 9.0 mg/dL (8.4-10.2) 11/18/17 05:00 Phosphorus 3.7 mg/dl (2.5-4.5) 11/17/17 16:19 Magnesium 2.1 MG/DL (1.6-2.3) 11/17/17 16:19 Total Bilirubin 0.7 mg/dl (0.2-1.3) 11/17/17 16:19 AST 27 U/L (17-59) 11/17/17 16:19 ALT 34 U/L (21-72) 11/17/17 16:19 Alkaline Phosphatase 86 U/L (38-126) 11/17/17 16:19 Troponin I 0.0170 ng/mL (0.00-0.120) 11/18/17 09:00 Total Protein 7.4 G/DL (6.3-8.2) 11/17/17 16:19 Albumin 3.9 g/dL (3.5-5.0) 11/17/17 16:19 Globulin 3.5 gm/dL (2.2-3.9) 11/17/17 16:19 Albumin/Globulin Ratio 1.1 (1.0-2.1) 11/17/17 16:19 Urine Color Straw (YELLOW) 11/18/17 11:39 Urine Clarity Clear (Clear) 11/18/17 11:39 Urine pH 7.0 (5.0-8.0) 11/18/17 11:39 Ur Specific [place] 1.012 (1.003-1.030) 11/18/17 11:39 Urine Protein Negative mg/dL (NEGATIVE) 11/18/17 11:39 Urine Glucose (UA) 150 mg/dL (Normal) 11/18/17 11:39 Urine Ketones Negative mg/dL (NEGATIVE) 11/18/17 11:39 Urine Blood Negative (NEGATIVE) 11/18/17 11:39 Urine Nitrate Negative (NEGATIVE) 11/18/17 11:39 Urine Bilirubin Negative (NEGATIVE) 11/18/17 11:39 Urine Urobilinogen 0.2-1.0 mg/dL (0.2-1.0) 11/18/17 11:39 Ur Leukocyte Esterase Trace [place]/uL (Negative) 11/18/17 11:39 Urine RBC (Auto) 1 /hpf (0-3) 11/18/17 11:39 Urine Microscopic WBC 3 /hpf (0-5) 11/18/17 11:39 Urine Bacteria Rare (<OCC) 11/18/17 11:39 - Hospital Course Hospital Course: 82 yo male with history of HTN, DM2, CAD, PVD, HLD, Dementia and ? AFib/Heart Block w/ Pacemaker brought by family because of " Seizure like activity" described as generalized shaking, foaming of the mouth, rolling of the eyes upward and urinary incontinence. History is unclear - pt claims he was alert and aware of what happened , denies LOC. Pt was observed in Telemetry . Trop x 3 negative. 1. Observed Seizure like activity place on observation in telemetry serial Troponin negative CT scan of head: unremarkable Neuro consulted : Dr Claros- nathalia cardiac work up Cardio: Dr Lazo consulted ECHO: normal LV function, normal wall motion Carotid Sono: negative Pt would need further work up as outpt for this " seizure like activity" he had an EEG done lastyear w/c was negative 2. CAD continue ASA and statin Cardio consulted Trop x 3 neg 3. DM2 BS was 125 in the ED Levemir 15 units SC HS accucheck ACHS [id number] 4. HTN BP stable continue Cardizem LA 180mg PO daily 5. Dementia continue Aricept 10mg PO HS 6. History of Heart Block ( as per old records seen on Holter ) s/p Pacemaker some previous records also mentions A fib prob paroxysmal presently in sinus with controlled rate on Cardizen LA Pt not on anticoag bec of hx of recurrent episodes of syncope 7. PAD, xh of Left BKA cont ASA, statin DVT prophylaxis Lovenox 40mg SC daily Discharge Exam - Head Exam Head Exam: NORMAL INSPECTION, NORMOCEPHALIC - Eye Exam Eye Exam: EOMI, Normal appearance Pupil Exam: NORMAL ACCOMODATION - ENT Exam ENT Exam: Mucous Membranes Moist, Normal External Ear Exam - Neck Exam Neck exam: Full Rom - Respiratory Exam Respiratory Exam: NORMAL BREATHING PATTERN. absent: Respiratory Distress - Cardiovascular Exam Cardiovascular Exam: REGULAR RHYTHM, +S1, +S2 - GI/Abdominal Exam GI & Abdominal Exam: Normal Bowel Sounds, Soft. absent: Tenderness - Extremities Exam Extremities exam: full ROM, normal capillary refill, pedal pulses present Additional comments: Left BKA - Back Exam Back exam: absent: CVA tenderness (L), CVA tenderness (R), vertebral tenderness - Neurological Exam Neurological exam: Alert, CN II-XII Intact, Oriented x3 - Psychiatric Exam Psychiatric exam: Normal Affect, Normal Mood - Skin Skin Exam: Dry, Normal Color, Warm Discharge Plan - Follow Up Plan Condition: GOOD Disposition: HOME/ ROUTINE Additional Instructions: ff up with Neurology and Cardiology for further work up appt with Dr Lopez [facility] Referrals: Esvin Lazo MD [Staff Provider] - Javier Claros MD [Medical Doctor] - Rebekah Lopez MD [Family Provider] -
== END 2017-11-19 16:00 | disposition home or self-care (01) ==
LOC: H.ER 14:42 → INTOOBSV 17:46 → H.ERHOLD 17:46 → H.TEL 22:38
DX: R56.9 Unspecified convulsions (principal); I48.0 Paroxysmal atrial fibrillation; I44.0 Atrioventricular block, first degree; I35.1 Nonrheumatic aortic (valve) insufficiency; I27.20 Pulmonary hypertension, unspecified; I25.10 Atherosclerotic heart disease of native coronary artery without angina pectoris; I12.9 Hypertensive chronic kidney disease with stage 1 through stage 4 chronic kidney disease, or unspecified chronic kidney disease; N18.9 Chronic kidney disease, unspecified; E11.65 Type 2 diabetes mellitus with hyperglycemia; E11.22 Type 2 diabetes mellitus with diabetic chronic kidney disease; E11.51 Type 2 diabetes mellitus with diabetic peripheral angiopathy without gangrene; D69.6 Thrombocytopenia, unspecified; F03.90 Unspecified dementia, unspecified severity, without behavioral disturbance, psychotic disturbance, mood disturbance, and anxiety; R32 Unspecified urinary incontinence; E78.5 Hyperlipidemia, unspecified; E78.00 Pure hypercholesterolemia, unspecified; Z89.512 Acquired absence of left leg below knee; Z95.810 Presence of automatic (implantable) cardiac defibrillator; Z95.1 Presence of aortocoronary bypass graft; Z79.4 Long term (current) use of insulin; Z79.82 Long term (current) use of aspirin; Z91.013 Allergy to seafood
CPT/HCPCS: 36415; 70450; 80048; 80053; 81003; 82948; 83036; 83735; 84100; 84484; 85025; 85610; 85730; 87086; 93005; 93306; 93880; 95816; 99285; G0378; J1650; J7040

== ENCOUNTER 2017-12-26 20:09 | Emergency (ER) | payer MEDICARE, OTHER ==
[2017-12-26 20:09] VITALS: BMI 26.6
[2017-12-26 20:22] VITALS: BP 143/67; PULSE 86; RESP 16; TEMP 97.7; O2SAT 98
--- NOTE | 2017-12-26 20:59 | ED PDOC ---
Lower Extremity Pain/Injury Time Seen by Provider: 12/26/17 20:48 Chief Complaint (Nursing): Abnormal Skin Integrity Chief Complaint (Provider): left knee redness History Per: Patient History/Exam Limitations: no limitations Onset/Duration Of Symptoms: Days (5) Current Symptoms Are (Timing): Still Present Additional Complaint(s): 82 y/o male presents with pruritic rash to left knee x 5 days. Denies fever, nausea/vomiting, knee pain/swelling/drainage. Patient has left below knee amputation, wears prosthesis. Past Medical History Reviewed: Historical Data, Nursing Documentation, Vital Signs Vital Signs: Last Vital Signs Temp 97.7 F 12/26/17 20:18 Pulse 86 12/26/17 20:18 Resp 16 12/26/17 20:18 BP 143/67 12/26/17 20:18 Pulse Ox 98 12/26/17 20:18 - Medical History PMH: Atrial Fibrillation, CAD, Dementia, Diabetes, HTN, Hypercholesterolemia Denies: HIV, Chronic Kidney Disease - Surgical History Surgical History: CABG, Pacemaker (11/28/2015) - Family History Family History: States: Unknown Family Hx - Home Medications Home Medications: Ambulatory Orders Medication Instructions Recorded Aspirin [Ecotrin] 81 mg PO DAILY 04/26/17 Diltiazem HCl [Cardizem LA] 180 mg PO DAILY 11/17/17 Docusate [Colace] 100 mg PO Q48H 11/17/17 Donepezil [Aricept] 10 mg PO HS 11/17/17 Insulin Detemir [Levemir] 15 unit SC HS PRN 11/17/17 Linagliptin [Tradjenta] 5 mg PO DAILY 11/17/17 Multivit-Min/FA/Lycopen/Lutein 1 tab PO DAILY 11/17/17 [Centrum Silver Men Tablet] Hydrocortisone 1% Cream [Cortizone 1 appl TP BID #1 tube 12/26/17 1% Cream] - Allergies Allergies/Adverse Reactions: Allergies Allergy/AdvReac Type Severity Reaction Status Date / Time shellfish derived Allergy SWELLING Verified 11/17/17 14:44 shrimp Allergy RASH Verified 04/26/17 10:37 Seafood Allergy SWELLING Uncoded 01/05/17 10:40 Review of Systems ROS Statement: Except As Marked, All Systems Reviewed And Found Negative Musculoskeletal: Positive for: Leg Pain (left knee redness) Physical Exam - Reviewed Nursing Documentation Reviewed: Yes Vital Signs Reviewed: Yes - Physical Exam Appears: Positive for: Well, Non-toxic, No Acute Distress Head Exam: Positive for: ATRAUMATIC, NORMAL INSPECTION, NORMOCEPHALIC Skin: Positive for: Normal Color Eye Exam: Positive for: Normal appearance ENT: Positive for: Normal ENT Inspection Cardiovascular/Chest: Positive for: Regular Rate, Rhythm Respiratory: Positive for: Normal Breath Sounds Extremity: Positive for: Normal ROM, Other (BKA left lower extremity; left knee with erythema/skin thickening with scattered similar macular patches noted to distal thigh;. Area dry. No swelling, tenderness, lesions, warmth noted. FROM. ) Neurologic/Psych: Positive for: Alert, Oriented - Laboratory Results Result Diagrams: 12/26/17 21:22 12/26/17 21:22 - ECG O2 Sat by Pulse Oximetry: 98 - Progress ED Course And Treament: accucheck, labs, IV fluids Patient educated on findings, discharged with rx hydrocortisone cream advised to keep prosthesis off when home/resting. Follow up PMD 2-3 days. Return precautions given. Disposition - Clinical Impression Clinical Impression: Dermatitis - Patient ED Disposition Is Patient to be Admitted: No Counseled Patient/Family Regarding: Studies Performed, Diagnosis, Need For Followup, Rx Given - Disposition Disposition: Routine/Home Disposition Time: 22:53 Condition: STABLE Prescriptions: Hydrocortisone 1% Cream [Cortizone 1% Cream] 1 appl TP BID #1 tube Instructions: Dermatitis Forms: [email or web address] (Yi) Print Language: LAO
[2017-12-26 21:29] LABS: BASO % 0.5 % (0.0-2.0); EOS # 0.3 K/uL (0.0-0.7); EOS % 4.4 % (0.0-4.0); HEMOGLOBIN 13.1 g/dL (12.0-18.0); LYMPH # 1.4 K/uL (1.0-4.3); MEAN CELL VOLUME 89.4 fl (80.0-94.0); MEAN CORPUSCULAR HEMOGLOBIN 30.4 pg (27.0-31.0); MEAN PLATELET VOLUME 11.3 fl (7.2-11.7); MONO # 0.6 K/uL (0.0-0.8); MONO % 9.1 % (0.0-10.0); NEUT # 3.9 K/uL (1.8-7.0); RBC 4.31 Mil/uL (4.40-5.90); RED CELL DISTRIBUTION WIDTH 14.2 % (11.5-14.5); WHITE BLOOD COUNT 6.3 K/uL (4.8-10.8)
[2017-12-26 21:44] LABS: ALB/GLOB RATIO 1.1 (1.0-2.1); ALBUMIN 3.5 g/dL (3.5-5.0); CALCIUM 8.7 mg/dL (8.4-10.2); GFR AFRICAN-AMERICAN > 60; GFR NON-AFRICAN AMERICAN > 60
[2017-12-26] MEDS ORDERED: Sodium Chloride 0.9% 1,000 ML IV STA (21:48)
[2017-12-26 21:56] LABS: BLOOD UREA NITROGEN 30 mg/dl (9-20)
[2017-12-26 21:57] LABS: ALT/SGPT 30 U/L (21-72); AST/SGOT 32 U/L (17-59)
== END 2017-12-26 23:30 | disposition home or self-care (01) ==
LOC: H.ER 20:09
DX: L30.9 Dermatitis, unspecified (principal); E11.9 Type 2 diabetes mellitus without complications; Z95.0 Presence of cardiac pacemaker; Z95.1 Presence of aortocoronary bypass graft; Z79.82 Long term (current) use of aspirin; Z79.4 Long term (current) use of insulin; I10 Essential (primary) hypertension; F03.90 Unspecified dementia, unspecified severity, without behavioral disturbance, psychotic disturbance, mood disturbance, and anxiety; E78.00 Pure hypercholesterolemia, unspecified; I25.10 Atherosclerotic heart disease of native coronary artery without angina pectoris
CPT/HCPCS: 80053; 82948; 83605; 85025; 99283; J7040

== ENCOUNTER 2018-09-14 08:03 | Emergency (ER) | payer MEDICARE, OTHER ==
[2018-09-14 08:04] VITALS: BMI 26.6
--- NOTE | 2018-09-14 08:22 | ED PDOC ---
HPI: Trauma/Fall - HPI Time Seen by Provider: 09/14/18 08:07 Chief Complaint (Nursing): Upper Extremity Problem/Injury Chief Complaint (Provider): fall injuries History Per: Patient History/Exam Limitations: no limitations Onset/Duration Of Symptoms: Hrs Associated Symptoms: denies: Dizziness, LOC Additional Complaint(s): Ayaz Johnston is an 82 year old male, with a past medical history of diabetes, HTN and left TKA, who presents to the emergency department after he tripped and fell while using walker. Patient reports he landed on left side of face but denies any LOC, headache, dizziness, other injuries, hip pain, back pain, chest pain or palpitations prior to incident. No further medical complaints. PMD: None provided. - Fall Fall:Prior To Injury: Tripped Past Medical History Reviewed: Historical Data, Nursing Documentation, Vital Signs Vital Signs: Last Vital Signs Temp 98.2 F 09/14/18 08:06 Pulse 77 09/14/18 08:06 Resp 18 09/14/18 08:06 BP 150/70 09/14/18 08:06 Pulse Ox 99 09/14/18 08:06 - Medical History PMH: Atrial Fibrillation, CAD, Dementia, Diabetes, HTN, Hypercholesterolemia Denies: HIV, Chronic Kidney Disease Other PMH: left TKA - Surgical History Surgical History: CABG, Pacemaker (11/28/2015) - Family History Family History: States: Unknown Family Hx - Home Medications Home Medications: Ambulatory Orders Medication Instructions Recorded Aspirin [Ecotrin] 81 mg PO DAILY 04/26/17 Diltiazem HCl [Cardizem LA] 180 mg PO DAILY 11/17/17 Docusate [Colace] 100 mg PO Q48H 11/17/17 Donepezil [Aricept] 10 mg PO HS 11/17/17 Insulin Detemir [Levemir] 15 unit SC HS PRN 11/17/17 Linagliptin [Tradjenta] 5 mg PO DAILY 11/17/17 Multivit-Min/FA/Lycopen/Lutein 1 tab PO DAILY 11/17/17 [Centrum Silver Men Tablet] Hydrocortisone 1% Cream [Cortizone 1 appl TP BID #1 tube 12/26/17 1% Cream] Bacitracin [Bacitracin Opht OINT] 1 applic EXT BID #1 tube 09/14/18 Naproxen [Naprosyn] 500 mg PO Q12H #20 tab 09/14/18 - Allergies Allergies/Adverse Reactions: Allergies Allergy/AdvReac Type Severity Reaction Status Date / Time shellfish derived Allergy SWELLING Verified 09/14/18 08:07 shrimp Allergy RASH Verified 09/14/18 08:07 Seafood Allergy SWELLING Uncoded 09/14/18 08:07 Review of Systems ROS Statement: Except As Marked, All Systems Reviewed And Found Negative Cardiovascular: Negative for: Chest Pain, Palpitations Musculoskeletal: Negative for: Back Pain, Other (hip pain) Skin: Positive for: Other (facial injuries) Neurological: Negative for: Headache, Dizziness Physical Exam - Reviewed Nursing Documentation Reviewed: Yes Vital Signs Reviewed: Yes - Physical Exam Appears: Positive for: No Acute Distress Head Exam: Positive for: NORMAL INSPECTION, NORMOCEPHALIC. Negative for: ATRAUMATIC (Abrasions to left periorbital area, no palpable fracture) Skin: Positive for: Normal Color, Warm, Dry Eye Exam: Positive for: Normal appearance, EOMI, PERRL ENT: Positive for: Normal ENT Inspection Neck: Positive for: Normal, Painless ROM, Supple Cardiovascular/Chest: Positive for: Regular Rate, Rhythm. Negative for: Murmur Respiratory: Positive for: Normal Breath Sounds (clear to auscultation). Negative for: Respiratory Distress Gastrointestinal/Abdominal: Positive for: Normal Exam, Soft. Negative for: Tenderness Back: Positive for: Normal Inspection. Negative for: L CVA Tenderness, R CVA Tenderness, Vertebral Tenderness, Other (spinal tenderness or deformity) Extremity: Positive for: Normal ROM, Other (Left TKA). Negative for: Tenderness, Swelling Neurologic/Psych: Positive for: Alert, Oriented. Negative for: Motor/Sensory Deficits - ECG O2 Sat by Pulse Oximetry: 99 (RA) Pulse Ox Interpretation: Normal Medical Decision Making Medical Decision Making: Time: 08:07 Initial Impression: Mechanical fall with facial/head injury, will obtain CT of head as well as maxillofacial to r/o fracture or bleed. But given no neurologica l deficits and other symptoms, unlikely that fall was other than mechanical etiology Initial Plan: --Maxillofacial w/o contrast [CT] --Head w/o contrast [CT] --Reevaluation Scribe Attestation: Documented by Cade Sam, acting as a scribe for Stephen Cervantes MD Provider Scribe Attestation: All medical record entries made by the Scribe were at my direction and personally dictated by me. I have reviewed the chart and agree that the record accurately reflects my personal performance of the history, physical exam, medical decision making, and the department course for this patient. I have also personally directed, reviewed, and agree with the discharge instructions and disposition. Disposition - Clinical Impression Clinical Impression: Facial contusion - Patient ED Disposition Is Patient to be Admitted: No Counseled Patient/Family Regarding: Studies Performed, Diagnosis, Need For Followup, Rx Given - Disposition Referrals: [facility] [Outside] Disposition: Routine/Home Disposition Time: 09:34 Condition: FAIR Prescriptions: Bacitracin [Bacitracin Opht OINT] 1 applic EXT BID #1 tube Naproxen [Naprosyn] 500 mg PO Q12H #20 tab Instructions: Contusion (DC), Closed Head Injury Forms: [employer] (Amharic)
--- NOTE | 2018-09-14 09:02 | CT ---
Date of service: 09/14/2018 PROCEDURE: CT HEAD WITHOUT CONTRAST. HISTORY: r/o bleed COMPARISON: Noncontrast head CT performed 11/17/17 TECHNIQUE: Axial computed tomography images were obtained through the head/brain without intravenous contrast. Radiation dose: Total exam DLP = 811.91 mGy-cm. This CT exam was performed using one or more of the following dose reduction techniques: Automated exposure control, adjustment of the mA and/or kV according to patient size, and/or use of iterative reconstruction technique. FINDINGS: HEMORRHAGE: No intracranial hemorrhage. BRAIN: Diffuse atrophy with prominence of the ventricles and sulci noted. No mass effect or edema. Intracranial atherosclerosis. Scattered periventricular and subcortical white matter hypodensities, which are nonspecific, but often seen with chronic microvascular ischemic disease. Please note that MRI with diffusion imaging is more sensitive in the detection of acute ischemic event. VENTRICLES: No hydrocephalus. CALVARIUM: Unremarkable. PARANASAL SINUSES: Unremarkable as visualized. No significant inflammatory changes. MASTOID AIR CELLS: Unremarkable as visualized. No inflammatory changes. OTHER FINDINGS: Small left facial hematoma. Re-identified chronic appearing deformity, right lamina papyracea. IMPRESSION: Small left facial hematoma. No acute intracranial pathology identified. Additional findings as above.
--- NOTE | 2018-09-14 09:12 | CT ---
Date of service: 09/14/2018 CT maxillofacial bones without IV contrast Indication: trauma Comparison: Noncontrast head CT performed 09/14/18 and 11/17/17 Technique: Axial computed tomography images were obtained of the maxillofacial bones without the use of intravenous contrast. Coronal and sagittal reformatted images were generated and reviewed. This CT exam was performed using 1 or more of the following dose reduction techniques: Automated exposure control, adjustment of the MAA and/or kV according to patient size, and/or use of iterative reconstruction technique. Radiation dose: Total exam DLP = 717.56 mGy-cm. Findings: 1.0 x 3.0 cm left frontal/facial soft tissue hematoma. Chronic right lamina papyracea fracture deformity. The facial bones appear unremarkable without acute displaced fracture. The orbits appear unremarkable. The temporomandibular joints appear located. The mastoid air cells appear clear. The paranasal sinuses appear clear. Dense carotid artery calcifications. Straightening of the normal cervical lordosis may be related to muscle spasm or positioning. Multilevel degenerative changes, anterior osteophyte formation, intervertebral disc space narrowing, and osseous demineralization of the included cervical spine. Impression: 1.0 x 3.0 cm left frontal/facial soft tissue hematoma. Chronic right lamina papyracea fracture deformity. No acute findings identified. Additional incidental findings as above.
[2018-09-14 10:20] VITALS: RESP 16
[2018-09-14 11:14] VITALS: BP 120/68; PULSE 78; TEMP 97.7; O2SAT 98
== END 2018-09-14 10:45 | disposition home or self-care (01) ==
LOC: H.ER 08:03
DX: S00.83XA Contusion of other part of head, initial encounter (principal); W19.XXXA Unspecified fall, initial encounter; Y92.89 Other specified places as the place of occurrence of the external cause